=== PATIENT | female | born 2000 | race Hispanic/Latino ===

== ENCOUNTER 2021-01-20 07:52 | Inpatient (IN) | payer OTHER ==
[2021-01-20] MEDS ORDERED: Ringers Lactate 1,000 ML IV PRN (07:55)
[2021-01-20] MEDS ORDERED: CARBOPROST TROME 250 MCG/ML IM PRN (07:55)
[2021-01-20] MEDS ORDERED: PROMETHAZINE INJ 25 MG/ML AMP IM PRN (07:55)
[2021-01-20] MEDS ORDERED: BUTORPHANOL 1 MG/ML INJ IV PRN (07:55)
[2021-01-20] MEDS ORDERED: METHYLERGONOVINE 0.2MG/ML AMP IM PRN (07:55)
--- OUTSIDE RECORDS SUMMARY | 2021-01-20 07:57 | XMS REPORT | Continuity of Care Document ---
:2000 Author Organization [facility] t Address [address] [place] [address] Care Team Providers Name Role Phone PCP, PATIENT DOES NOT HAVE A Primary Care Physician Unavailnestor Richardson Attending Clinician Unavailable MORGAN Attending Clinician Unavailable Morgan GOMEZ Attending Clinician Fabiola RANDOLPH Attending Clinician Unavailable Gino Brown DO Attending Clinician Fabiola Randolph MD Attending Clinician 2, Lab Attending Clinician Unavailable Doctor Unassigned, Name Attending Clinician Unavailable MORGAN Admitting Clinician Unavailable Physician, Primary or Family Admitting Clinician Unavailсветлана Mora MD Admitting Clinician Payers Payer Name Policy Type Policy Number Effective Date Expiration Date S jennifer [employer] [id number] 2018 OUT OF NETWORK 00:00:00 [facility] [id number] 2020 CHOICE MEDICAID 00:00:00 Problems Condition Condition Condition Status Onset Resolution Last Treating Co mments Source Name Details Category Date Date Treatment Clinician Date 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 1-24 ity of stones stones 00:00: [address] Branch Obesity Obesity Disease Active Univers (BMI (BMI 7-15 ity of 30-39.9) 30-39.9) 00:00: [address] Morbid Morbid Disease Active 2020- Univers obesity obesity 6-09 [place] of with [place] mass index 00 [place] dical of of Branch 40.0-49.9 40.0-49.9 Morbid Morbid Disease Active 2020- Univers obesity obesity 6-09 [place] of with body [place] mass index mass index 00 Me dical of of Branch 40.0-49.9 40.0-49.9 Allergies, Adverse Reactions, Alerts Allergy Allergy Status Severity Reaction(s) Onset Inactive Treating Comm ents Source Name Type Date Date Clinician No Known DA Active U [facility] Allergie 4-29 Clear s 00:00: [place] 00 [facility] No Known DA Active U [facility] Allergie 4-29 Clear s 00:00: [place] 00 [facility] NO KNOWN Drug Active Univers ALLERGIE Class ity of S [facility] Social History Social Habit Start Date Stop Date Quantity Comments Source ASSERTION 2020-05-07 [facility] 00:00:00 [facility] Exposure to Not sure [facility] SARS-CoV-2 [facility] (event) [place] Alcohol intake 2020-12-29 2020-12-29 Ex-drinker [facility] 00:00:00 00:00:00 (finding) [facility] Tobacco use and 2019-07-15 2019-07-15 Never used Universit y of exposure 00:00:00 00:00:00 [facility] Sex Assigned At [birth year] Universit y of 00:00:00 00:00:00 [facility] Smoking Status Start Date Stop Date Source Never smoker [facility] Medications Ordered Filled Start Stop Current Ordering Indication Dosage Frequency Signature Comments Components Source Medication Medication Date Date Medication? Clinician (SIG) Name Name piperacilli 2020-02 Yes 3.375g 3.375 g, Univers n-tazobacta 24 IV ity of m (ZOSYN) 16:[place] 3.[place] 00 Q6H ABX, Medic al NaCl 0.9% First dose Bran ch (NS) 100 mL on Sun MINI-BAG 12/29/20 at 1000, Until Discontinu ed, Administer over 30 Minutes, 100 mL
Reas on for Anti-Infec tive: Empiric Therapy for Suspected Infection morpHINE 2020-02 Yes 4mg 4 mg, Slow Uni vers injection 4 1-24 IV Push, ity of mg 14:58: Q4HPRN, [place] 59 Starting Medical on Sun Branch 12/29/20 at 0858, Until Discontinu ed, Routine, Pain (scale 4-6) NaCl 0.9% 2020-02 Yes 1000mL at 200 Univ ers (NS) IV 1-24 mL/hr, IV ity of infusion 14:00: [place]fusion, [place] 1,000 mL 00 CONTINUOUS Medic al , Starting Branch on Sun12/29/20 at 0800, Until Discontinu ed, Routine maalox:diph 2020-02 Yes 15mL 15 mL, Univ ers enhydrAMINE 1-24 Oral, ity of :lidocaine 13:59: QDAILYPRN, [place] 2 % viscous 53 Starting Medi mihai 1:1:1 on Sun Branch (FIRST-MOUT 12/29/20 [facility]) at 0759, oral Until suspension Discontinu 15 mL ed, Routine, nausea metoclopram 2020-02 Yes 5mg 5 mg, Slow Univers klever HCl 1-24 IV Push, ity of (REGLAN) 13:47: Q6HPRN, [place] injection 5 03 Starting Medi mihai mg on Sun Branch 12/29/20 at 0747, Until Discontinu ed, Routine, Nausea and Vomiting (N/V) FENTanyl PF 2020-02 Yes 100ug 100 mcg, U nivers (SUBLIMAZE -24 Slow IV ity of (PF)) 13:46: Push, [place] injection 04 Q1HPRN, 5 Medic al 100 mcg doses, Branch Starting on Sun12/29/20 at 0746, Until Discontinu ed, Routine, Pain (scale 7-10) FENTanyl PF 2020-02- No 100ug 100 mcg, Univers (SUBLIMAZE -24 -24 Slow IV ity o f (PF)) 12:08: 12:20 Push, [place] injection 00 :00 ONCE, 1 Medical 100 mcg dose, On Branch Sun12/29/20 at 0615, Routine ondansetron 2020-02- No 8mg 8 mg, Slow Univers (ZOFRAN 24 24 IV Push, ity of (PF)) 11:40: 11:50 ONCE, 1 [place] injection 8 00 :00 dose, On Medi mihai mg Sun12/29/20 at 0545, Routine acetaminoph 2020-02 Yes 1000mg 1,000 mg, Univers en -24 Oral, ity of (TYLENOL) 11:00: Q6HPRN, [place] tablet 00 Starting Medical 1,000 mg on Sun12/29/20 at 0500, Until Discontinu ed, Routine, Pain (scale 4-6) etonogestre 2020-02- No 68mg 68 mg by U nivers l 68 mg 02-28 Subdermal ity of implant 07:40: 00:00 route once [place] 25 :00 now. Medical Branch etonogestre Yes 68mg 68 mg by Un jazlyn l 68 mg 7-15 Subdermal [place]y of [place] 18:22: route [place] now. Medical Branch etonogestre Yes 68mg 68 mg by Un jazlyn l 68 mg 7-15 Subdermal ity of [place] 18:22: route once [place] 54 now. Medical Branch etonogestre Yes 68mg 68 mg by Un jazlyn l 68 mg 7-15 Subdermal ity of [place] 18:22: route once [place] 54 now. Medical Branch etonogestre Yes 68mg 68 mg by Un jazlyn l 68 mg 7-15 Subdermal ity of [place] 18:22: route once [place] 54 now. Medical Branch etonogestre Yes 68mg 68 mg by Un jazlyn l 68 mg 7-15 Subdermal ity of [place] 18:22: route once [place] 54 now. Medical Branch etonogestre Yes 68mg 68 mg by Un jazlyn l 68 mg 7-15 Subdermal ity of [place] 18:22: route once [place] 54 now. Medical Branch norgestimat Yes [id number] 1{tbl} Take 1 Univers e-ethinyl 7-15 tablet by ity o f estradiol 00:00: mouth [place] (SPRINTEC) 00 daily. Medical 0.25-35 Branch mg-mcg per tablet ibuprofen 2019-0 Yes [id number] 800mg Take 1 U nivers 800 mg 7-15 tablet by ity of tablet 00:00: mouth [place] 00 every 8 Medical (eight) Branch hours as needed for Pain (scale 4-6). norgestimat 2020-0 Yes [id number] 1{tbl} Take 1 Univers e-ethinyl 7-15 tablet by ity o f estradiol 00:00: mouth [place] (SPRINTEC) 00 daily. Medical 0.25-35 Branch mg-mcg per tablet ibuprofen 2019-0 Yes [id number] 800mg Take 1 U nivers 800 mg 7-15 tablet by ity of tablet 00:00: mouth [place] 00 every 8 Medical (eight) Branch hours as needed for Pain (scale 4-6). norgestimat 2019-0 Yes [id number] 1{tbl} Take 1 Univers e-ethinyl 7-15 tablet by ity o f estradiol 00:00: mouth [place] (SPRINTEC) 00 daily. Medical 0.25-35 Branch mg-mcg per tablet ibuprofen 2019-0 Yes [id number] 800mg Take 1 U nivers 800 mg 7-15 tablet by ity of tablet 00:00: mouth [place] 00 every 8 Medical (eight) Branch hours as needed for Pain (scale 4-6). norgestimat 2019-0 Yes [id number] 1{tbl} Take 1 Univers e-ethinyl 7-15 tablet by ity o f estradiol 00:00: mouth [place] (SPRINTEC) 00 daily. Medical 0.25-35 Branch mg-mcg per tablet ibuprofen 2019-0 Yes [id number] 800mg Take 1 U nivers 800 mg 7-15 tablet by ity of tablet 00:00: mouth [place] 00 every 8 Medical (eight) Branch hours as needed for Pain (scale 4-6). norgestimat 2020-0 Yes [id number] 1{tbl} Take 1 Univers e-ethinyl 7-15 tablet by ity o f estradiol 00:00: mouth [place] (SPRINTEC) 00 daily. Medical 0.25-35 Branch mg-mcg per tablet ibuprofen 2019-0 Yes [id number] 800mg Take 1 U nivers 800 mg 7-15 tablet by ity of tablet 00:00: mouth [place] 00 every 8 Medical (eight) Branch hours as needed for Pain (scale 4-6). norgestimat Yes [id number] 1{tbl} Take 1 Univers e-ethinyl 7-15 tablet by ity o f estradiol 00:00: mouth [place] (SPRINTEC) 00 daily. Medical 0.25-35 Branch mg-mcg per tablet ibuprofen Yes [id number] 800mg Take 1 U nivers 800 mg 7-15 tablet by ity of tablet 00:00: mouth [place] 00 every 8 Medical (eight) Branch hours as needed for Pain (scale 4-6). norgestimat 2020- No [id number] 1{tbl} Take 1 Univers e-ethinyl 7-15 11-24 tablet by ity of estradiol 00:00: 00:00 mouth [place] (SPRINTEC) 00 :00 daily. Medical 0.25-35 Branch mg-mcg per tablet ibuprofen No [id number] 800mg Take 1 Univers 800 mg 7-15 11-24 tablet by ity of tablet 00:00: 00:00 mouth [place] 00 :00 every 8 Medical (eight) Branch hours as needed for Pain (scale 4-6). etonogestre 2019- No 68mg Unive rs l 07-21 ity of (NEXPLANON) 20:45: 19:40 [place] implant 68 00 :00 Medical mg Branch etonogestre 2019- No 68mg 68 mg, Uni vers l 07-21 Subdermal, ity of (NEXPLANON) 20:45: 19:40 ONCE NOW, [place] implant 68 00 :00 1 dose, Medica l mg Tue Branch 07/22/19 at 1545, Routine
Use approved by: PATIENT ACCESS MANAGER etonogestre 2019- No 68mg Unive rs l 07-21 ity of (NEXPLANON) 20:45: 19:40 [place] implant 68 00 :00 Medical mg Branch etonogestre 2019- No 68mg 68 mg, Uni vers l 07-21 Subdermal, ity of (NEXPLANON) 20:45: 19:40 ONCE NOW, [place] implant 68 00 :00 1 dose, Medica l mg Tue Branch 07/22/19 at 1545, Routine
Use approved by: PATIENT ACCESS MANAGER No known No Univers medications ity of [place] [facility] Vital Signs Vital Name Observation Time Observation Value Comments Source Respiratory rate 2020-12-30 16:30:00 18 /min Univ ersity of [facility] [place] [facility] Heart rate 2020-12-30 16:15:00 71 /min Universi ty of [facility] [place] [facility] Oxygen saturation in 2020-12-30 16:15:00 98 /min University Arterial blood by [facility] Pulse oximetry Branch Systolic blood 2020-12-30 13:13:00 96 mm[Hg] Univer sity of pressure [facility] [place] [facility] Diastolic blood 2020-12-30 13:13:00 69 mm[Hg] Unive rsity of [facility] Body temperature 2020-12-30 13:13:00 36.78 Wanda Univ ersity of [facility] [place] [facility] Body weight 2020-12-29 10:32:00 98.521 kg 217.2lb Universi ty of [facility] [place] [facility] BMI 2020-12-29 10:32:00 38.48 kg/m2 Universi ty of [facility] [place] [facility] Body height 2020-12-29 10:11:00 160 cm Universi ty of [facility] [place] [facility] Systolic blood 2019-08-20 19:18:00 119 mm[Hg] Univer sity of pressure [facility] [place] [facility] Diastolic blood 2019-08-20 19:18:00 79 mm[Hg] Unive rsity of [facility] Heart rate 2019-08-20 19:18:00 102 /min Universi ty of [facility] [place] [facility] Body temperature 2019-08-20 18:21:00 36.94 Wanda Univ ersity of [facility] [place] [facility] Respiratory rate 2019-08-20 18:21:00 18 /min Univ ersity of [facility] [place] [facility] Body height 2019-08-20 18:21:00 160 cm Universi ty of [facility] [place] [facility] Body weight 2019-08-20 18:21:00 98.612 kg Universi ty of [facility] [place] [facility] BMI 2019-08-20 18:21:00 38.51 kg/m2 Universi ty of [facility] [place] [facility] Systolic blood 2019-07-22 18:35:00 120 mm[Hg] Univer sity of pressure [facility] [place] [facility] Diastolic blood 2019-07-22 18:35:00 77 mm[Hg] Unive rsity of pressure [facility] [place] [facility] Heart rate 2019-07-22 18:35:00 84 /min Universi ty of [place] [facility] Body temperature 2019-07-22 18:35:00 36.94 Wanda [facility] Respiratory rate 2019-07-22 18:35:00 18 /min General acute hospital Body height 2019-07-22 18:35:00 160 cm Universi ty [facility] [place] [facility] Body weight 2019-07-22 18:35:00 112.764 kg Universi ty [facility] [place] [facility] BMI 2019-07-22 18:35:00 44.04 kg/m2 Universi ty [facility] [place] [facility] Systolic blood 2019-07-22 18:35:00 120 mm[Hg] [facility] sity of [facility] Diastolic blood 2019-07-22 18:35:00 77 mm[Hg] [facility] Heart rate 2019-07-22 18:35:00 84 /min Universi ty [facility] [place] [facility] Body temperature 2019-07-22 18:35:00 36.94 Wanda [facility] acute hospital Respiratory rate 2019-07-22 18:35:00 18 /min General acute hospital Body height 2019-07-22 18:35:00 160 cm Universi ty [facility] [place] [facility] Body weight 2019-07-22 18:35:00 112.764 kg Universi [facility] BMI 2019-07-22 18:35:00 44.04 kg/m2 [facility] Procedures Procedure Date / Time Performing Clinician Source Performed HEPATIC FUNCTION PANEL 2020-12-30 10:42:00 Amber Gordillo [facility] ([id number]) (ALB,T.PRO,BILI [facility] T,BU/BC,ALT,AST,ALK PHOS) US GALL BLADDER 2020-12-29 14:22:00 Fish, [facility] COVID-19 (ID NOW RAPID 2020-12-29 12:21:00 Fish [facility] TESTING) [facility] AMYLASE 2020-12-29 12:14:00 Fish [facility] LIPASE 2020-12-29 12:14:00 Fish, [facility] COMP. METABOLIC PANEL 2020-12-29 12:14:00 [facility] ([id number]) [facility] CBC WITH DIFF 2020-12-29 12:14:00 Morgan Eber [place] o f [facility] [place] [facility] NOTICE OF PRIVACY 2020-12-29 10:04:59 Doctor Unassgeorgiana, [facility] PRACTICES [place] [facility] CONSENT/REFUSAL FOR 2020-12-29 10:04:27 Doctor Unassgeorgiana, [facility] DIAGNOSIS AND TREATMENT [facility] POCT TEST 2019-08-20 19:09:00 Louise Randolph [facility] CONSENT FOR ORAL 2019-08-20 05:01:00 Doctor Unajenniferigned, [facility] CONTRACEPTIVES [place] [facility] [id number] 2019-07-29 00:00:00 KOBI [facility] Encounters Start End Encounter Admission Attending Care Care Encounter Source Date/Time Date/Time Type Type Clinicians Facility Department ID 2020-12-30 Outpatient P [facility] OVIDIO [id number] [facility]-07-29 Inpatient HIEN Richardson DAYS [id number] [facility] 07:30:[id number] [facility] 2019-06-09 Inpatient MEREDITH Richardson DAYS [id number] [facility] 11:00:[id number] [facility] 2020-12-29 2020-12-30 Outpatient P EBER MORA [facility] OVIDIO [id number] Univers 04:21:00 17:00:[facility] 2020-12-29 2020-12-30 Hospital Enrrique Moran [facility] [id number] Univers 04:21:00 17:00:00 Encounter [place] [id number] [id number] [facility] [id number] [facility] 083 Branch 2020-09-11 2020-09-11 Outpatient [facility] [id number] Univers 16:40:00 16:40:00 [id number] [facility] 2020-07-23 2020-07-23 Outpatient R MANISH [facility] [id number] Univers 13:00:00 13:00:00 LOUISE [id number] [facility] 2020-07-23 2020-07-23 Outpatient R ADUM, [facility] [id number] Univers 13:00:00 13:00:00 LOUISE [facility] 2020-04-27 2020-04-27 Patient [facility] [id number] Univers 00:00:00 00:00:00 Outreach James PRIMARY [id number] i ty of [facility] 4[place]2.[place].2.686 [place] [id number] [address] 2019-11-21 2019-11-21 Outpatient R ADUM, [facility] [id number] Univers 09:00:00 09:00:00 LOUISE [facility] 2019-11-21 2019-11-21 Outpatient R AD, [facility] [id number] Univers 09:00:00 09:00:00 LOUISE [id number] [facility] 2019-09-05 2019-09-05 [facility] [id number] Univers 00:00:00 00:00:00 Louise Barajas [id number] ity of [place]2.[place] Profess[place] [phone] Fl dical [facility] [address] [facility] 2019-08-20 2019-08-20 Therapy Manager 2, Adc Lab [facility] [id number] Univers 14:31:24 14:46:24 Visit Louise Randolph [id number] ity of [place] 4[place].2.[place] [phone] Fl dical nal 353 [facility] 2019-08-20 2019-08-20 Office Adum, [facility] [id number] Univers 13:06:07 14:20:18 Visit Louise Barajas [id number] ity of [place] 4[place].2.[place] [phone] Fl dical [facility] 134 [facility] 2019-08-20 2019-08-20 Outpatient R ADUM, [facility] [id number] Univers 13:00:00 13:00:00 LOUISE [id number] ity [facility] [place] [facility] 2019-08-20 2019-08-20 Outpatient R ADUM, [facility] [id number] Univers 13:00:00 13:00:00 LOUISE ity [facility] [place] [facility] 2019-08-20 2019-08-20 Orders Doctor JUAN DANIEL [id number] Univers 00:00:00 00:00:00 Only Unassigned, HUSAM [id number] ity of [facility] 4.2.7.2.686 [place] [phone] [address] 2019-07-24 2019-07-24 Outpatient MEREDITH RichardsonCL LABO [id number] [facility] 13:53:00 13:53:00 Antelmo [id number] [facility] 2019-07-22 2019-07-22 Office Adum, [facility] [id number] Univers 13:05:27 14:26:35 Visit Louise Barajas [id number] ity of [place] 4[place].2.[place] [phone] Fl dical [address] 2019-07-22 2019-07-22 Office Adum, [facility] [id number] 13:05:27 14:26:35 Visit Louise Barajas [id number] [place] 4.2.7.2.686 Professio [phone] [address] 2019-07-22 2019-07-22 Outpatient R ADUM, [facility] [id number] Univers 13:00:00 13:00:00 LOUISE [id number] ity [facility] [place] [facility] 2019-07-22 2019-07-22 Outpatient R ADUM, [facility] [id number] Univers 13:00:00 13:00:00 LOUISE ity [facility] [place] [facility] 2019-07-18 2019-07-18 Therapy Manager 2, Adc Lab [facility] [id number] Univers 10:38:49 10:53:49 Visit Louise Randolph [id number] ity of [place] 4.2.7.2.686 Bridget Sherman [phone] Fl dical nal [address] 2019-07-18 2019-07-18 Outpatient R [facility] [id number] Univers 10:45:00 10:45:00 [id number] [facility] 2019-07-18 2019-07-18 Outpatient R [facility] [id number] Univers 10:45:00 10:45:00 [facility] 2019-07-15 2019-07-15 Outpatient R MANISH, [facility] [id number] Univers 15:00:00 15:00:00 [facility] 2019-06-04 2019-06-04 Outpatient ADIN Richardson LABO [id number] [facility] 17:57:00 17:57:00 Antelmo [id number] [facility] Results Test Description Test Time Test Comments Results Result Comments Source HEPATIC FUNCTION PANEL ([id number]) (ALB,T.PRO,BILI 2020-12-30 13 :47:55 T,BU/BC,ALT,AST,ALK PHOS) Test Item Value Reference Range Interpretation Comme nts TOTAL BILI (test code = 7009485901) 0.9 mg/dL 0.1-1.1 BILI UNCON (test code = 6256707909) 0.5 mg/dL 0.1-1.1 BILI CONJ (test code = 5567805460) 0.0 mg/dL 0.0-0.3 T PROTEIN (test code = 8427886936) 5.6 g/dL 6.3-8.2 L ALBUMIN (test code = 8608301543) 2.8 g/dL 3.5-5.0 L ALK PHOS (test code = 2831491553) 163 U/L 34-122 H ALTv (test code = 1742-6) 42 U/L 5-35 H AST(SGOT) (test code = 7007410539) 55 U/L 13-40 H Lab Interpretation (test code = 73294-7) [facility] ([id number])2020-12-29 13:46:21 Test Item Value Reference Range Interpretation Comments NA (test code = 135 mmol/L 135-145 0947358030) K (test code = 4.3 mmol/L 3.5-5.0 3896609436) CL (test code = 105 mmol/L 98-108 1116442774) CO2 TOTAL (test code = 24 mmol/L 23-31 6165186438) AGAP (test code = 2-16 2496342221) BUN (test code = 9 mg/dL 7-23 2827718147) GLUCOSE (test code = 98 mg/dL 70-110 3963606903) CREATININE (test code = 0.56 mg/dL 0.50-1.04 6622227134) TOTAL BILI (test code = 0.2 mg/dL 0.1-1.5 3616126766) CALCIUM (test code = 9.6 mg/dL 8.6-10.6 2711155576) T PROTEIN (test code = 6.4 g/dL 6.3-8.2 5443670987) ALBUMIN (test code = 3.4 g/dL 3.5-5.0 L 7385945705) ALK PHOS (test code = 136 U/L 34-122 H 4902983971) ALTv (test code = 17 U/L 5-35 1742-6) AST(SGOT) (test code = 26 U/L 13-40 7997860289) eGFR (test code = mL/min/1.73m2 1845950744) SATYA (test code = SATYA) Association of Glomerular Filtration Rate (GFR) and Staging of Kidney Disease* + --+ --+ ------+| GFR (mL/min/1.73 m2) ?| With Kidney Damage ?| ?Without Kidney Damage+ --------+ --------+ +| ?>90 ?| ?Stage one ?| ? Normal ?+ ---+ ---+ -------+| ?60-89 ?| ?Stage two ?| ? Decreased GFR ? + --+ --+ ------+| ?30-59 ?| ?Stage three ?| ? Stage three ? + --+ --+ ------+| ?15-29 ?| ?Stage four ? | ? Stage four ?+ ---+ ---+ -------+| ?<15 (or dialysis) ? ?| ?Stage five ? | ? Stage five ?+ ---+ ---+ -------+ *Each stage assumes the associated GFR level has been in effect for at least three months. ?Stages 1 to 5, with or without kidney disease, indicate chronic kidney disease. Notes: Determination of stages one and two (with eGFR >59mL/min/1.73 m2) requires estimation of kidney damage for at least three months as defined by structural or functional abnormalities of the kidney, manifested by either:Pathological abnormalities or Markers of kidney damage (including abnormalities in the composition of the blood or urine or abnormalities in imaging tests). Lab Interpretation Abnormal (test code = 46846-9) [facility] 13:46:21 Test Item Value Reference Range Interpretation Comments LIPASE (test code = 7311734054) 63 U/L 0-220 Lab Interpretation (test code = Normal 88423-5) [facility] 13:45:20 Test Item Value Reference Range Interpretation Comments JOSHUA (test code = 6259339245) 72 U/L 35-110 Lab Interpretation (test code = Normal 86344-1) [facility] WITH [id number] 12:29:37 Test Item Value Reference Range Interpretation Comments WBC (test code = See_Comment H [Automated 6690-2) message] The system which generated this result transmit pamela reference range : 4.30 - 11.10 10*3/?L. The reference range was not used to interpret this result as normal/abnormal . RBC (test code = See_Comment L [Automated 789-8) message] The system which generated this result transmit pamela reference range : 3.93 - 5.25 10*6/?L. The reference range was not used to interpret this result as normal/abnormal . HGB (test code = 11.3 g/dL 11.6-15.0 L 718-7) HCT (test code = 34.5 % 35.7-45.2 L 4544-3) MCV (test code = 88.5 fL 80.6-95.5 787-2) MCH (test code = 29.0 pg 25.9-32.8 785-6) MCHC (test code = 32.8 g/dL 31.6-35.1 786-4) RDW-SD (test code = 41.7 fL 39.0-49.9 86214-9) RDW-CV (test code = 13.0 % 12.0-15.5 788-0) PLT (test code = See_Comment [Automated 777-3) message] The system which generated this result transmit pamela reference range : 166 - 358 10*3/ ?L. The reference range was not u sed to interpret th is result as normal/abnormal . MPV (test code = 10.6 fL 9.5-12.9 09410-7) NRBC/100 WBC (test See_Comment [Automat ed code = 6107838005) message] The system which generated this result transmit pamela reference range : 0.0 - 10.0 /100 WBCs. The reference range was not used to interpret this result as normal/abnormal . NRBC x10^3 (test code <0.01 See_Comment [Auto mated = 8361334755) message] The system which generated this result transmit pamela reference range : 10*3/?L. The reference range was not used to interpret this result as normal/abnormal . GRAN MAT (NEUT) % 86.9 % (test code = 770-8) IMM GRAN % (test code 0.90 % = 9359798623) LYMPH % (test code = 7.4 % 736-9) MONO % (test code = 4.3 % 5905-5) EOS % (test code = 0.1 % 713-8) BASO % (test code = 0.4 % 706-2) GRAN MAT x10^3(ANC) 13.16 10*3/uL 1.88-7.09 H (test code = 0542152702) IMM GRAN x10^3 (test 0.14 10*3/uL 0.00-0.06 H code = 4316165214) LYMPH x10^3 (test code 1.12 10*3/uL 1.32-3.29 L = 731-0) MONO x10^3 (test code 0.65 10*3/uL 0.33-0.92 = 742-7) EOS x10^3 (test code = <0.03 0.03-0.39 L 711-2) BASO x10^3 (test code 0.06 10*3/uL 0.01-0.07 = 704-7) Lab Interpretation Abnormal (test code = 00607-7) [facility] [id number] 19:09:00 Test Item Value Reference Range Interpretation Comments POCT PREG (test code = 1605) Negative On board controls acceptable with C Yes Line (test code = 3574) POCT PREG LOT # (test code = 3575) POCT PREG TEST DATE (test code = 3576) [facility] [id number] 19:09:00 Test Item Value Reference Range Interpretation Comments POCT PREG (test code = 1605) Negative On board controls acceptable with C Yes Line (test code = 3574) POCT PREG LOT # (test code = 3575) POCT PREG TEST DATE (test code = 357) [facility] W/AUTO [id number] 05:19:00 Test Item Value Reference Range Interpretation Comments WHITE BLOOD CELL (test code = 14.9 K/mm3 4.5-12.5 H WBC) RED BLOOD CELL (test code = 4.13 mill/mm3 3.7-5.2 N RBC) HEMOGLOBIN (test code = HGB) 11.0 gram/dL 11.5-15.5 L HEMATOCRIT (test code = HCT) 34.3 % 36.0-46.0 L MEAN CELL VOLUME (test code = 83.1 fL 80-98 N MCV) MEAN CELL HGB (test code = MCH) 26.6 picogram 27.0-33.0 L MEAN CELL HGB CONCETRATION 32.1 gram/dL 33.0-36.0 L (test code = MCHC) RED CELL DISTRIBUTION WIDTH 15.4 % 11.6-16.2 N (test code = RDW) RED CELL DISTRIBUTION WIDTH SD 46.7 fL 37.0-51.0 N (test code = RDW-SD) PLATELET COUNT (test code = 459 K/mm3 150-450 H PLT) MEAN PLATELET VOLUME (test code 10.3 fL 6.7-11.0 N = MPV) NEUTROPHIL % (test code = NT%) 72.1 % 39.0-69.0 H IMMATURE GRANULOCYTE % (test 0.5 % 0.0-5.0 N code = IG%) LYMPHOCYTE % (test code = LY%) 19.9 % 25.0-55.0 L MONOCYTE % (test code = MO%) 6.6 % 0.0-10.0 N EOSINOPHIL % (test code = EO%) 0.4 % 0.0-5.0 N BASOPHIL % (test code = BA%) 0.5 % 0.0-1.0 N NUCLEATED RBC % (test code = 0.0 % 0-0 N NRBC%) NEUTROPHIL # (test code = NT#) 10.73 K/mm3 1.8-7.7 H IMMATURE GRANULOCYTE # (test 0.07 x10 3/uL 0-0.03 H code = IG#) LYMPHOCYTE # (test code = LY#) 2.96 K/mm3 1.0-5.0 N MONOCYTE # (test code = MO#) 0.98 K/mm3 0-0.8 H EOSINOPHIL # (test code = EO#) 0.06 K/mm3 0.0-0.5 N BASOPHIL # (test code = BA#) 0.07 K/mm3 0.0-0.2 N NUCLEATED RBC # (test code = 0.00 K/mm3 0.0-0.1 N NRBC#) URINALYSIS [id number] 20:30:00 Test Item Value Reference Range Interpretation Comments UA COLOR (test code = COLORLESS YELLOW A COLU) UA APPEARANCE (test code CLEAR CLEAR = APPU) UA GLUCOSE DIPSTICK (test NEGATIVE mg/dL NEGATIVE code = DGLUU) UA BILIRUBIN DIPSTICK NEGATIVE mg/dL NEGATIVE (test code = BILU) UA KETONE DIPSTICK (test 40 (2+) mg/dL NEGATIVE A code = KETU) UA SPECIFIC GRAVITY (test 1.007 1.001-1.035 code = SGU) UA BLOOD DIPSTICK (test Negative mg/dL NEGATIVE code = DEMETRIUS) UA PH DIPSTICK (test code 6.5 5.0-8.0 = ZENON) UA PROTEIN DIPSTICK (test NEGATIVE mg/dL NEGATIVE code = PROU) UA UROBILINIOGEN DIPSTICK Normal mg/dL NEGATIVE (test code = URO) UA NITRITE DIPSTICK (test NEGATIVE NEGATIVE code = CAITLIN) UA LEUKOCYTE ESTERASE W 75 Dee Dee/uL (1+) NEGATIVE A REFLEX (test code = Dee Dee/uL LEUUR) UA WBC (test code = WBCU) 0-5 per HPF 0-5 UA RBC (test code = RBCU) 0-2 #/HPF 0-5 UA EPITHELIAL CELLS (test FEW per HPF FEW code = EPIU) UA BACTERIA (test code = NONE SEEN #/HPF NONE BACU) Urine Source? Clean [id number] 16:26:00 RUN DATE: 07/30/19 [facility] PAGE 1 RUN TIME: 1626 Specimen Inquiry RUN USER: INTERFACE PATIENT: GEM LAI LOC: AFSANEH U #: [id number] AGE/SX: 18/F ROOM: [facility] RE07/29/19REG DR: Antelmo Richardson MD : 99 BED: A DIS: STATUS: ADM IN TLOC: SPEC #: [id number] RECD: 07/29/19-1216 STATUS: FARHEEN WYMAN #: [id number] ESTHER: 07/29/19- SUBM DR: Antelmo Richardson MD ENTERED: 07/29/19-1216 SP TYPE: STOMACH OTHR DR: No Primary or Family Physician Dylan Tucker MDORDERED: GROSS COPIES TO: No Primary or Family Physician Antelmo Richardson MD [address] [place] [address] Dylan Tucker MD [address] [address] [place], [place] [address] PROCEDURES: GROSS (07/30/19-113) TISSUES: STOMACH, NOS - PORTION OF STOMACH CLINICAL HISTORY COLLECTION DATE: 07/29/19 [facility] FINAL DIAGNOSIS Portion of stomach, laparoscopic sleeve gastrectomy: PORTION OF STOMACH, NO PATHOLOGIC ALTERATION DMW/sm D 26008 MACROSCOPIC The specimen is received in formalin labeled with the patient's name, "portion of stomach" and consists of a sleeve gastrectomy specimen measuring 17.5 by up to 4.5 cm with a wall thickness up to 0.5 cm. The mucosal edge is stapled closed.A minimal amount of unremarkable yellow fatty tissue is CONTINUED ON NEXT PAGE RUN DATE: 07/30/19 [facility] PAGE 2 RUN TIME: 1626 Specimen Inquiry RUN USER: INTERFACE SPEC #: [id number] PATIENT: GEM LAI #[id number] (Continued) MACROSCOPIC (Continued) attached to the opposite surface. The mucosal surface is dark pink with unremarkable folds. No areas of ulceration, nodules or masses are seen. [employer] tissue is submitted in a single cassette. GROSS PERFORMED AT [facility] [address] [place] [address] [phone] MICROSCOPIC All of the stains, including any controls performed, stain appropriately. MICROSCOPIC PERFORMED AT [facility] [address] [place] [address] [phone])[phone] PERFORMING SITE Diagnosis performed at: [facility], [place] [address] [place] [address] Signed SIGNATURE ON FILE Tayler Brooks MD 07/30/19 1626 END OF REPORT BASIC METABOLIC [id number] 07:04:00 Test Item Value Reference Range Interpretation Comments SODIUM (test code = 138 mmol/L 136-145 N NA) POTASSIUM (test code 4.3 mmol/L 3.5-5.1 N = K) CHLORIDE (test code = 106.0 mmol/L 98-107 N CL) CARBON DIOXIDE (test 21.0 mmol/L 21-32 N code = CO2) ANION GAP (test code 15.3 10-20 N = GAP) GLUCOSE (test code = 80 mg/dL 74-106 N GLU) BLOOD UREA NITROGEN 5 mg/dL 7-18 L (test code = BUN) GLOMERULAR FILTRATION > 60 mL/min >=60 Estima pamela GFR by RATE (test code = using Fabio fied MDRD GFR) formula.Chronic kidney disease is defined as [facility] kidney damageor GFR <60 mL/min/1.73 m2 for >3 months. CREATININE (test code 0.60 mg/dL 0.55-1.02 N Note change in = CREAT) reference range due to change in reagent. BUN/CREATININE RATIO 8.1 10-20 L (test code = BUN/CREA) CALCIUM (test code = 9.0 mg/dL 8.5-10.1 N CA) BASIC METABOLIC [id number] 06:56:00 Test Item Value Reference Range Interpretation Comments SODIUM (test code = NA) 138 mmol/L 136-145 N POTASSIUM (test code = K) 4.3 mmol/L 3.5-5.1 N CHLORIDE (test code = CL) 106.0 mmol/L 98-107 N CARBON DIOXIDE (test code = CO2) mmol/L 21-32 ANION GAP (test code = GAP) 10-20 GLUCOSE (test code = GLU) mg/dL 74-106 BLOOD UREA NITROGEN (test code = mg/dL 7-18 BUN) GLOMERULAR FILTRATION RATE (test mL/min >=60 code = GFR) CREATININE (test code = CREAT) mg/dL 0.55-1.02 BUN/CREATININE RATIO (test code 10-20 = BUN/CREA) CALCIUM (test code = CA) mg/dL 8.5-10.1 CBC W/AUTO [id number] 05:46:00 Test Item Value Reference Range Interpretation Comments WHITE BLOOD CELL (test code = 19.3 K/mm3 4.5-12.5 H WBC) RED BLOOD CELL (test code = 4.48 mill/mm3 3.7-5.2 N RBC) HEMOGLOBIN (test code = HGB) 11.8 gram/dL 11.5-15.5 N HEMATOCRIT (test code = HCT) 37.0 % 36.0-46.0 N MEAN CELL VOLUME (test code = 82.6 fL 80-98 N MCV) MEAN CELL HGB (test code = MCH) 26.3 picogram 27.0-33.0 L MEAN CELL HGB CONCETRATION 31.9 gram/dL 33.0-36.0 L (test code = MCHC) RED CELL DISTRIBUTION WIDTH 15.0 % 11.6-16.2 N (test code = RDW) RED CELL DISTRIBUTION WIDTH SD 45.2 fL 37.0-51.0 N (test code = RDW-SD) PLATELET COUNT (test code = 474 K/mm3 150-450 H PLT) MEAN PLATELET VOLUME (test code 10.3 fL 6.7-11.0 N = MPV) NEUTROPHIL % (test code = NT%) 84.4 % 39.0-69.0 H IMMATURE GRANULOCYTE % (test 0.4 % 0.0-5.0 N code = IG%) LYMPHOCYTE % (test code = LY%) 9.3 % 25.0-55.0 L MONOCYTE % (test code = MO%) 5.6 % 0.0-10.0 N EOSINOPHIL % (test code = EO%) 0.1 % 0.0-5.0 N BASOPHIL % (test code = BA%) 0.2 % 0.0-1.0 N NUCLEATED RBC % (test code = 0.0 % 0-0 N NRBC%) NEUTROPHIL # (test code = NT#) 16.27 K/mm3 1.8-7.7 H IMMATURE GRANULOCYTE # (test 0.08 x10 3/uL 0-0.03 H code = IG#) LYMPHOCYTE # (test code = LY#) 1.79 K/mm3 1.0-5.0 N MONOCYTE # (test code = MO#) 1.08 K/mm3 0-0.8 H EOSINOPHIL # (test code = EO#) 0.01 K/mm3 0.0-0.5 N BASOPHIL # (test code = BA#) 0.03 K/mm3 0.0-0.2 N NUCLEATED RBC # (test code = 0.00 K/mm3 0.0-0.1 N NRBC#) MANUAL DIFF REQUIRED (test code NO = MDIFF) [id number] 06:31:00 Test Item Value Reference Range Interpretation Comments GLUBED (test code = 92 mg/dL 74-106 N Performe d by certified 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) 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 [facility] Novel Coronavirus 2019 [id number] 02:35:00 Test Item Value Reference Range Interpretation Comments Novel Coronavirus 2019 Inhouse (test Negative Negative code = COVNONPUI) Testing Criteria: Preprocedure ScreeningNovel Coronavirus 2019 Inhouse 2019-07-27 02:35:00 Test Item Value Reference Range Interpretation Comments Novel Coronavirus 2019 Inhouse (test Negative Negative code = COVNONPUI) Testing Criteria: Preprocedure Screening- XR CHEST 2 [id number] 10:40:00 FAX: Antelmo Armando MD [phone] [place]: O St: PRE Name: GEM LAI [facility] : 2000 Age/S: 18/F [address] [facility] Unit#: [id number] [facility] [address] Phys: Antelmo Richardson MD Acct: [id number] Dis Date: Status: PRE IN PHONE #: [phone] Exam Date: 07/24/2019 0955 FAX #: [phone] Reason: PRE OP EXAMS: CPT CODE: [id number] XR CHEST 2 V 81209 REASON FOR EXAM: PRE OP Exam Order Date:07/24/2019 9:10 AM Ordering M.DJah: Antelmo Richardson MD PROCEDURE: - XR KATERYNA ST 2 V COMPARISON: Chest x-ray June 04, 2019 FINDINGS: The lungs are clear. There is no pleural effusion or pneumothorax. Pulmonary vascularity is within normal limits. Cardiomediastinal silhouette is normal in size for technique. The medi astinal contours are within normal limits. Musculoskeletal structures are within normal limits. The visualized upper abdomen is within normal limits.IMPRESSION: No acute cardiopulmonary process. Location: [facility] at 1040 Reported and signed by: Vikas Callaway MD CC: Antelmo Richardson MD Technologist: RT MAGDALENA(Francheska) Trnscrd Date/Time/By: 07/24/2019 (1040) : By: [email or web address] Orig Print D/T: S: 07/24/2019 (7258) PAGE 1 Signed ReportCOMPREHENSIVE METABOLIC [id number] 10:26:00 Test Item Value Reference Range Interpretation Comments SODIUM (test code = 139 mmol/L 136-145 N NA) POTASSIUM (test code = 4.0 mmol/L 3.5-5.1 N K) CHLORIDE (test code = 107.0 mmol/L 98-107 N CL) CARBON DIOXIDE (test 25.0 mmol/L 21-32 N code = CO2) ANION GAP (test code = 11.0 10-20 N GAP) GLUCOSE (test code = 84 mg/dL 74-106 N GLU) BLOOD UREA NITROGEN 10 mg/dL 7-18 N (test code = BUN) GLOMERULAR FILTRATION > 60 mL/min >=60 Estima pamela GFR by RATE (test code = GFR) using Modified MDRD formula.Chronic kidney disease is defined as eith er kidney damageor GFR <60 mL/min/1.73 m2 for >3 months. CREATININE (test code 0.70 mg/dL 0.55-1.02 N Note change in = CREAT) reference range due to change in reagent. BUN/CREATININE RATIO 14.2 10-20 N (test code = BUN/CREA) TOTAL PROTEIN (test 8.1 gram/dL 6.4-8.2 N code = PROT) ALBUMIN (test code = 3.5 g/dL 3.4-5.0 N ALB) GLOBULIN (test code = 4.6 gram/dL 2.7-4.2 H GLOB) ALBUMIN/GLOBULIN RATIO 0.8 0.75-1.50 N (test code = A/G) CALCIUM (test code = 9.2 mg/dL 8.5-10.1 N CA) BILIRUBIN TOTAL (test 0.20 mg/dL 0.0-1.0 N code = BILT) SGOT/AST (test code = 18 IUnit/L 15-37 N AST) SGPT/ALT (test code = 36 IUnit/L 12-78 N ALT) ALKALINE PHOSPHATASE 83 IUnit/L 37-107 N TOTAL (test code = ALKP) HCG SERUM [id number] 10:23:00 Test Item Value Reference Range Interpretation Comments HCG SERUM BETA < 1.0 mIU/mL 0-3 N INTERPRETATIO N:B-HCG (test code = HCG) LEVELS <5 SHOULD BE CONSIDERED "NEGATIVE." *WH EN BODERLINE RESUL TS ARE ENCOUNTERED,PAT IENT SAMPLESSHOULD B E REDRAWN 48 HOURS. 0-1 WEEKS AFTER CONCEPTIO N 5-50 MIU/ML1-2 WEEKS AFTER CONCEPTION 50-500 MIU/ ML2-3 WEEKS AFTER CON CEPTION 100 - 5,000 MIU/ML3-4 WEEKS AFTER CONCEPTION 500-10,000 MIU /ML4-5 WEEKS AFTER CON CEPTION 1000 -50 ,000 MIU/ML5-6 WEEKS AFTER CONCEPTION 10,000-100,000 MIU/ML6-8 WEEKS AFTER CONCEPTION 15,000- 200,000 MIU/ML2-3 MONTH S AFTER CONCEPTION 10,000-100,000 MIU/ML IS THIS PATIENT ? NOCOMPREHENSIVE METABOLIC [id number] 10:18:00 Test Item Value Reference Range Interpretation Comments SODIUM (test code = NA) 139 mmol/L 136-145 N POTASSIUM (test code = K) 4.0 mmol/L 3.5-5.1 N CHLORIDE (test code = CL) 107.0 mmol/L 98-107 N CARBON DIOXIDE (test code = CO2) mmol/L 21-32 ANION GAP (test code = GAP) 10-20 GLUCOSE (test code = GLU) mg/dL 74-106 BLOOD UREA NITROGEN (test code = mg/dL 7-18 BUN) GLOMERULAR FILTRATION RATE (test mL/min >=60 code = GFR) CREATININE (test code = CREAT) mg/dL 0.55-1.02 BUN/CREATININE RATIO (test code 10-20 = BUN/CREA) TOTAL PROTEIN (test code = PROT) gram/dL 6.4-8.2 ALBUMIN (test code = ALB) g/dL 3.4-5.0 GLOBULIN (test code = GLOB) gram/dL 2.7-4.2 ALBUMIN/GLOBULIN RATIO (test 0.75-1.50 code = A/G) CALCIUM (test code = CA) mg/dL 8.5-10.1 BILIRUBIN TOTAL (test code = mg/dL 0.0-1.0 BILT) SGOT/AST (test code = AST) IUnit/L 15-37 SGPT/ALT (test code = ALT) IUnit/L 12-78 ALKALINE PHOSPHATASE TOTAL (test IUnit/L 37-107 code = ALKP) PROTHROMBIN [id number] 10:14:00 Test Item Value Reference Range Interpretation Comments PROTHROMBIN TIME 12.5 seconds 9.0-14.0 N PATIENT (test code = PTP) INTERNATIONAL NORMAL 1.1 0.8-1.2 N The the rapeutic range RATIO (test code = for oral INR) anticoagulant t herapy formost indicat ions is an internati onal normalized rati o (INR)of between 2.0 and 3.0. The recommended therapeutic INR range for various cli nical situations is l isted below: Clinical Situat ion INR range Pulmonary embol ism treatment (2.0-3.0)Venou s thrombosis treatmentVenous thrombosis prophylaxis (hi gh risk surgery)Prevent ion of systemic emboli sm from: A cute myocardial infa rction Valvula r heart disease Atrial fibrilla tion Mechanical pros thetic heart valves (2.5-3.5) IS PATIENT ON ANTICOAGULANTS? NTHROMBOPLASTIN TIME [id number] 10:14:00 Test Item Value Reference Range Interpretation Comments THROMBOPLASTIN TIME PARTIAL 42.3 seconds 23.0-37.0 H (test code = PTT) IS PATIENT ON ANTICOAGULANTS? NURINALYSIS [id number] 10:11:00 Test Item Value Reference Range Interpretation Comments UA COLOR (test code = COLU) COLORLESS YELLOW A UA APPEARANCE (test code = CLEAR CLEAR APPU) UA GLUCOSE DIPSTICK (test NEGATIVE mg/dL NEGATIVE code = DGLUU) UA BILIRUBIN DIPSTICK (test NEGATIVE mg/dL NEGATIVE code = BILU) UA KETONE DIPSTICK (test code NEGATIVE mg/dL NEGATIVE = KETU) UA SPECIFIC GRAVITY (test 1.007 1.001-1.035 code = SGU) UA BLOOD DIPSTICK (test code Negative mg/dL NEGATIVE = DEMETRIUS) UA PH DIPSTICK (test code = 6.0 5.0-8.0 ZENON) UA PROTEIN DIPSTICK (test NEGATIVE mg/dL NEGATIVE code = PROU) UA UROBILINIOGEN DIPSTICK Normal mg/dL NEGATIVE (test code = URO) UA NITRITE DIPSTICK (test NEGATIVE NEGATIVE code = CAITLIN) UA LEUKOCYTE ESTERASE W NEGATIVE Dee Dee/uL NEGATIVE REFLEX (test code = LEUUR) UA WBC (test code = WBCU) 0-5 per HPF 0-5 UA RBC (test code = RBCU) NONE SEEN #/HPF 0-5 UA EPITHELIAL CELLS (test FEW per HPF FEW code = EPIU) UA BACTERIA (test code = FEW #/HPF NONE A BACU) UA MUCUS (test code = MUCU) FEW #/LPF FEW Urine Source? Clean CatchURINALYSIS [id number] 10:07:00 Test Item Value Reference Range Interpretation Comments UA COLOR (test code = COLU) COLORLESS YELLOW A UA APPEARANCE (test code = CLEAR CLEAR APPU) UA GLUCOSE DIPSTICK (test NEGATIVE mg/dL NEGATIVE code = DGLUU) UA BILIRUBIN DIPSTICK (test NEGATIVE mg/dL NEGATIVE code = BILU) UA KETONE DIPSTICK (test code NEGATIVE mg/dL NEGATIVE = KETU) UA SPECIFIC GRAVITY (test 1.007 1.001-1.035 code = SGU) UA BLOOD DIPSTICK (test code Negative mg/dL NEGATIVE = DEMETRIUS) UA PH DIPSTICK (test code = 6.0 5.0-8.0 ZENON) UA PROTEIN DIPSTICK (test NEGATIVE mg/dL NEGATIVE code = PROU) UA UROBILINIOGEN DIPSTICK Normal mg/dL NEGATIVE (test code = URO) UA NITRITE DIPSTICK (test NEGATIVE NEGATIVE code = CAITLIN) UA LEUKOCYTE ESTERASE W NEGATIVE Dee Dee/uL NEGATIVE REFLEX (test code = LEUUR) UA WBC (test code = WBCU) per HPF 0-5 UA RBC (test code = RBCU) per HPF 0-5 UA EPITHELIAL CELLS (test per HPF Few code = EPIU) UA BACTERIA (test code = per HPF NONE BACU) Urine Source? Clean CatchCBC W/AUTO [id number] 10:04:00 Test Item Value Reference Range Interpretation Comments WHITE BLOOD CELL (test code = 13.1 K/mm3 4.5-12.5 H WBC) RED BLOOD CELL (test code = 4.25 mill/mm3 3.7-5.2 N RBC) HEMOGLOBIN (test code = HGB) 11.2 gram/dL 11.5-15.5 L HEMATOCRIT (test code = HCT) 35.6 % 36.0-46.0 L MEAN CELL VOLUME (test code = 83.8 fL 80-98 N MCV) MEAN CELL HGB (test code = MCH) 26.4 picogram 27.0-33.0 L MEAN CELL HGB CONCETRATION 31.5 gram/dL 33.0-36.0 L (test code = MCHC) RED CELL DISTRIBUTION WIDTH 15.6 % 11.6-16.2 N (test code = RDW) RED CELL DISTRIBUTION WIDTH SD 47.4 fL 37.0-51.0 N (test code = RDW-SD) PLATELET COUNT (test code = 444 K/mm3 150-450 N PLT) MEAN PLATELET VOLUME (test code 9.5 fL 6.7-11.0 N = MPV) NEUTROPHIL % (test code = NT%) 76.0 % 39.0-69.0 H IMMATURE GRANULOCYTE % (test 0.4 % 0.0-5.0 N code = IG%) LYMPHOCYTE % (test code = LY%) 16.9 % 25.0-55.0 L MONOCYTE % (test code = MO%) 5.0 % 0.0-10.0 N EOSINOPHIL % (test code = EO%) 1.2 % 0.0-5.0 N BASOPHIL % (test code = BA%) 0.5 % 0.0-1.0 N NUCLEATED RBC % (test code = 0.0 % 0-0 N NRBC%) NEUTROPHIL # (test code = NT#) 9.99 K/mm3 1.8-7.7 H IMMATURE GRANULOCYTE # (test 0.05 x10 3/uL 0-0.03 H code = IG#) LYMPHOCYTE # (test code = LY#) 2.22 K/mm3 1.0-5.0 N MONOCYTE # (test code = MO#) 0.66 K/mm3 0-0.8 N EOSINOPHIL # (test code = EO#) 0.16 K/mm3 0.0-0.5 N BASOPHIL # (test code = BA#) 0.06 K/mm3 0.0-0.2 N NUCLEATED RBC # (test code = 0.00 K/mm3 0.0-0.1 N NRBC#) LIPID PROFILE (CORONARY RISK)2019-06-07 19:07:00 Test Item Value Reference Range Interpretation Comments TRIGLYCERIDES (test 185 mg/dL 20-150 H code = TRIG) CHOLESTEROL (test code 190 mg/dL 0-200 N = CHOL) CHOLESTEROL/HDL RATIO 6.0 RATIO 0-4.9 H RISK A SSOCIATED WITH (test code = CHOLHDL) CHOL/H DL RATIOS: Risk M krista Female1/[address] RAGE 3.43 3.27AVERAGE 4.97 4.4 [address]X AVERAGE 9[address] RAGE 23.39 11.04 REFERENCE VALUE IS RELATED TO RISK LEVELS ASRECOMMENDED B Y THE CLEMENT[place]. HEART, NICA G, AND BLOOD INST. HDL CHOLESTEROL (test 29 mg/dL 40-60 L code = HDL) LIPOPROTEIN LDL (test 125 mg/dL 100-129 N RN LUIZA DODSON, CONTACT code = LDL) PHYSICIAN IMMED IATELY IF THIS IS A ST ROKE, AMI OR CAROTID STENOSIS PATIEN T WHEN THE LDL >100 ([address] OCCURENCE, THIS ADMISSION)===== ======= ======= ======= ===Reference In terval: mg/dL mmol/L-------- ------- ------- ------- Optimal <100 <2.6Near/above optimal 100-12 9 2.6-3.3Borderl ine High 130-159 3.4-4.1High 160 -189 4.1-4.9Very High >=190 >=4.9========= This LDL result is a direct measurement.=== ====== HEPATIC FUNCTION [id number] 19:07:00 Test Item Value Reference Range Interpretation Comments TOTAL PROTEIN (test code = PROT) 8.0 gram/dL 6.4-8.2 N ALBUMIN (test code = ALB) 3.6 g/dL 3.4-5.0 N GLOBULIN (test code = GLOB) 4.4 gram/dL 2.7-4.2 H ALBUMIN/GLOBULIN RATIO (test code 0.8 0.75-1.50 N = A/G) BILIRUBIN TOTAL (test code = 0.30 mg/dL 0.0-1.0 N BILT) BILIRUBIN DIRECT (test code = 0.10 mg/dL 0.0-0.20 N BILD) SGOT/AST (test code = AST) 23 IUnit/L 15-37 N SGPT/ALT (test code = ALT) 40 IUnit/L 12-78 N ALKALINE PHOSPHATASE TOTAL (test 99 IUnit/L 37-107 N code = ALKP) HCG SERUM [id number] 19:07:00 Test Item Value Reference Range Interpretation Comments HCG SERUM QUAL (test NEGATIVE NEGATIVE This HC GQL test is NOT code = HCGQL) applicable for MALE patients.Check with nurse about probable order error.If Tumor Marker Test needed, nu rse should order test "HCG TU"(Test #[id number])---- - VITAMIN [id number] 19:07:00 Test Item Value Reference Range Interpretation Comments VITAMIN B12 (test code = VITB12) 446 pg/mL 193-986 N FOLIC [id number] 19:07:00 Test Item Value Reference Range Interpretation Comments FOLIC ACID (test code = FOL) 15.8 ng/mL 3.10-17.50 N THYROID PROFILE [id number] 19:07:00 Test Item Value Reference Range Interpretation Comments T3 UPTAKE (test code = 34.0 % 30.0-40.0 N T3UP) T4 (THYROXINE) (test 9.6 ug/dL 4.5-13.9 N code = T4) T7 (FREE THYROXINE 3.26 FTI 1.3-5.1 N INDEX) (test code = T7) THYROID STIMULATING 4.470 uIU/mL 0.36-3.74 H TSH REFE RENCE HORMONE (test code = RANGES: EUTHYROID: TSH) 0.35 - 4.3 mIU/mL HYPO : > 5.5 mIU/mL HYPER : < 0.35 mIU/mL T4 [id number] 19:07:00 Test Item Value Reference Range Interpretation Comments T4 FREE (test code = T4F) 1.04 ng/dL 0.76-1.46 N VIT B1 WHOLE [id number] 19:07:00 Test Item Value Reference Range Interpretation Comments VIT B1 WHOLE BLOOD 125.5 nmol/L 66.5-200.0 Performed At: (test code = [facility] [id number]) [place], [place] [id number] yuliana Aviles MD Ph:[phone] T3 [id number] 06:08:00 Test Item Value Reference Range Interpretation Comments T3 FREE (test code = 3.4 pg/mL 2.3-5.0 Perform ed At: [facility] T3F) [address] [id number] Kyle L MD Ph:[phone] Novel Coronavirus 13:12:00 Test Item Value Reference Range Interpretation Comments Novel Coronavirus Negative Negative Positive r esults are 2019 Inhouse (test indicativ e of the presence code = [id number]) ofSARS-CoV -2 RNA, clinical correlation wit h patient historyand othe r diagnostic info rmation is necessary to determinepatien t infection status. Positiv e results do not rule out bacterial infection or co -infection with other viru ses. Negative result s do not preclude SARS-C oV-2 infection andsh ould not be used as the qiana e basis for patient managementdecis ions. Negative result s must be combined with otherclinical observations, p atient history, and epidemiological information . Detection of SARS-CoV-2 RNA may be affe cted bysample collec tion methods, storag e conditions, and /or stageof infection. Qing l RNA mutations, vacc inations, antiviraltherap eutics, antibiotics, chemotherapeuti c orimmunosuppres cristobal drugs have not been e valuated for effectson d etection. Results are for the identification of SARS-CoV-2 RNA usingthe [employer] M2000 Sy stem under the FDA Emergen cy UseAuthorizatio n. The testing is perf ormed by personneltraine d in the procedures for the [employer] molecular diagnostic SARS-CoV-2 assa y in vitro. Testing Criteria: Preprocedure ScreeningNovel Coronavirus [id number] 13:11:00 Test Item Value Reference Range Interpretation Comments Novel Coronavirus Negative Negative Positive r esults are 2019 Inhouse (test indicativ e of the presence code = [id number]) ofSARS-CoV -2 RNA, clinical correlation wit h patient historyand othe r diagnostic info rmation is necessary to determinepatien t infection status. Positiv e results do not rule out bacterial infection or co -infection with other viru ses. Negative result s do not preclude SARS-C oV-2 infection andsh ould not be used as the qiana e basis for patient managementdecis ions. Negative result s must be combined with otherclinical observations, p atient history, and epidemiological information . Detection of SARS-CoV-2 RNA may be affe cted bysample collec tion methods, storag e conditions, and /or stageof infection. Qing l RNA mutations, vacc inations, antiviraltherap eutics, antibiotics, chemotherapeuti c orimmunosuppres cristobal drugs have not been e valuated for effectson d etection. Results are for the identification of SARS-CoV-2 RNA usingthe [employer] M2000 Sy stem under the FDA Emergen cy UseAuthorizatio n. The testing is perf ormed by personneltraine d in the procedures for the [employer] molecular diagnostic SARS-CoV-2 assa y in vitro. Testing Criteria: Preprocedure ScreeningAB HIV 1 13:33:00 Test Item Value Reference Range Interpretation Comments AB HIV 1 2 Nonreactive NonReactive It is recognize d that (test code = currently avail able [id number]) assays for thed etection of antibodies t o HIV-1 and/or HIV-2 ma y notdetect all i nfected individuals. A negative test result damon snot exclude the pos sibility of exposure to or infection withH IV. HIV antibodies may be undetectable in some stages ofthe in fection and in some cli nical conditions. AB HELICOBACTER [id number] 12:21:00 Test Item Value Reference Range Interpretation Comments AB HELICOBACTER IGG (test code = NEGATIVE NEGATIVE HELIGAB) LIPID PROFILE (CORONARY RISK)2019-06-04 12:13:00 Test Item Value Reference Range Interpretation Comments TRIGLYCERIDES (test 185 mg/dL 20-150 H code = TRIG) CHOLESTEROL (test code 190 mg/dL 0-200 N = CHOL) CHOLESTEROL/HDL RATIO 6.0 RATIO 0-4.9 H RISK A SSOCIATED WITH (test code = CHOLHDL) CHOL/H DL RATIOS: Risk M krista Female1/[address] A[address] RAGE 3.43 3.27AVERAGE 4.97 4.4 41X AVERAGE 9.[address] RAGE 23.39 11.04 REFERENCE VALUE IS RELATED TO RISK LEVELS ASRECOMMENDED B Y THE [place]. HEART, NICA G, AND BLOOD INST. HDL CHOLESTEROL (test 29 mg/dL 40-60 L code = HDL) LIPOPROTEIN LDL (test 125 mg/dL 100-129 N JAMES DODSON, CONTACT code = LDL) PHYSICIAN IMMED IATELY IF THIS IS A [facility] [place], AMI OR CAROTID STENOSIS PATIEN T WHEN THE LDL >100 ([address] OCCURENCE, THIS ADMISSION)===== ======= ======= ======= ===Reference In terval: mg/dL mmol/L-------- ------- ------- ------- Optimal <100 <2.6Near/above optimal 100-12 9 2.6-3.3Borderl ine High 130-159 3.4-4.1High 160 -189 4.1-4.9Very High >=190 >=4.9========= This LDL result is a direct measurement.=== ====== HEPATIC FUNCTION [id number] 12:13:00 Test Item Value Reference Range Interpretation Comments TOTAL PROTEIN (test code = PROT) 8.0 gram/dL 6.4-8.2 N ALBUMIN (test code = ALB) 3.6 g/dL 3.4-5.0 N GLOBULIN (test code = GLOB) 4.4 gram/dL 2.7-4.2 H ALBUMIN/GLOBULIN RATIO (test code 0.8 0.75-1.50 N = A/G) BILIRUBIN TOTAL (test code = 0.30 mg/dL 0.0-1.0 N BILT) BILIRUBIN DIRECT (test code = 0.10 mg/dL 0.0-0.20 N BILD) SGOT/AST (test code = AST) 23 IUnit/L 15-37 N SGPT/ALT (test code = ALT) 40 IUnit/L 12-78 N ALKALINE PHOSPHATASE TOTAL (test 99 IUnit/L 37-107 N code = ALKP) HCG SERUM [id number] 12:13:00 Test Item Value Reference Range Interpretation Comments HCG SERUM QUAL (test NEGATIVE NEGATIVE This HC GQL test is NOT code = HCGQL) applicable for MALE patients.Check with nurse about probable order error.If Tumor Marker Test needed, nu rse should order test "HCG TU"(Test #550.83353)---- - VITAMIN [id number] 12:13:00 Test Item Value Reference Range Interpretation Comments VITAMIN B12 (test code = VITB12) 446 pg/mL 193-986 N FOLIC [id number] 12:13:00 Test Item Value Reference Range Interpretation Comments FOLIC ACID (test code = FOL) 15.8 ng/mL 3.10-17.50 N THYROID PROFILE [id number] 12:13:00 Test Item Value Reference Range Interpretation Comments T3 UPTAKE (test code = 34.0 % 30.0-40.0 N T3UP) T4 (THYROXINE) (test 9.6 ug/dL 4.5-13.9 N code = T4) T7 (FREE THYROXINE 3.26 FTI 1.3-5.1 N INDEX) (test code = T7) THYROID STIMULATING 4.470 uIU/mL 0.36-3.74 H TSH REFE RENCE HORMONE (test code = RANGES: EUTHYROID: TSH) 0.35 - 4.3 mIU/mL HYPO : > 5.5 mIU/mL HYPER : < 0.35 mIU/mL T4 [id number] 12:13:00 Test Item Value Reference Range Interpretation Comments T4 FREE (test code = T4F) 1.04 ng/dL 0.76-1.46 N VIT B1 WHOLE [id number] 12:13:00 Test Item Value Reference Range Interpretation Comments VIT B1 WHOLE BLOOD (test code = nmol/L 87-280 YEWI4LO) [id number] 11:51:00 Test Item Value Reference Range Interpretation Comments GLYCOSYLATED HEMOGLOBIN 5.7 % HbA1 BLANCA SCHAFFER DIAGNOSIS: (HA1C) (test code = HbA1C GLYHGB) (%) ----- ----- Diab etic >6.4Prediabetes 5.7 - 6.4Normal <5.7 ESTIMATED AVERAGE 117 MG/DL GLUCOSE (test code = EAG) COMPREHENSIVE METABOLIC [id number] 11:42:00 Test Item Value Reference Range Interpretation Comments SODIUM (test code = 139 mmol/L 136-145 N NA) POTASSIUM (test code = 3.8 mmol/L 3.5-5.1 N K) CHLORIDE (test code = 105.0 mmol/L 98-107 N CL) CARBON DIOXIDE (test 28.0 mmol/L 21-32 N code = CO2) ANION GAP (test code = 9.8 10-20 L GAP) GLUCOSE (test code = 83 mg/dL 74-106 N GLU) BLOOD UREA NITROGEN 7 mg/dL 7-18 N (test code = BUN) GLOMERULAR FILTRATION > 60 mL/min >=60 Estima pamela GFR by RATE (test code = GFR) using Modified MDRD formula.Chronic kidney disease is defined as eith er kidney damageor GFR <60 mL/min/1.73 m2 for >3 months. CREATININE (test code 0.80 mg/dL 0.55-1.02 N Note change in = CREAT) reference range due to change in reagent. BUN/CREATININE RATIO 8.8 10-20 L (test code = BUN/CREA) TOTAL PROTEIN (test 8.4 gram/dL 6.4-8.2 H code = PROT) ALBUMIN (test code = 3.6 g/dL 3.4-5.0 N ALB) GLOBULIN (test code = 4.8 gram/dL 2.7-4.2 H GLOB) ALBUMIN/GLOBULIN RATIO 0.8 0.75-1.50 N (test code = A/G) CALCIUM (test code = 9.0 mg/dL 8.5-10.1 N CA) BILIRUBIN TOTAL (test 0.40 mg/dL 0.0-1.0 N code = BILT) SGOT/AST (test code = 22 IUnit/L 15-37 N AST) SGPT/ALT (test code = 39 IUnit/L 12-78 N ALT) ALKALINE PHOSPHATASE 96 IUnit/L 37-107 N TOTAL (test code = ALKP) LIPID PROFILE (CORONARY RISK)2019-06-04 11:40:00 Test Item Value Reference Range Interpretation Comments TRIGLYCERIDES (test code = TRIG) mg/dL 20-150 CHOLESTEROL (test code = CHOL) mg/dL 0-200 CHOLESTEROL/HDL RATIO (test code = RATIO 0-4.9 CHOLHDL) HDL CHOLESTEROL (test code = HDL) mg/dL 40-60 LIPOPROTEIN LDL (test code = LDL) mg/dL 100-129 HEPATIC FUNCTION [id number] 11:40:00 Test Item Value Reference Range Interpretation Comments TOTAL PROTEIN (test code = PROT) gram/dL 6.4-8.2 ALBUMIN (test code = ALB) g/dL 3.4-5.0 GLOBULIN (test code = GLOB) gram/dL 2.7-4.2 ALBUMIN/GLOBULIN RATIO (test code = 0.75-1.50 A/G) BILIRUBIN TOTAL (test code = BILT) mg/dL 0.0-1.0 BILIRUBIN DIRECT (test code = BILD) mg/dL 0.0-0.20 SGOT/AST (test code = AST) IUnit/L 15-37 SGPT/ALT (test code = ALT) IUnit/L 12-78 ALKALINE PHOSPHATASE TOTAL (test IUnit/L 37-107 code = ALKP) HCG SERUM [id number] 11:40:00 Test Item Value Reference Range Interpretation Comments HCG SERUM QUAL (test NEGATIVE NEGATIVE This HC GQL test is NOT code = HCGQL) applicable for MALE patients.Check with nurse about probable order error.If Tumor Marker Test needed, nu rse should order test "HCG TU"(Test #[id number])---- - VITAMIN [id number] 11:40:00 Test Item Value Reference Range Interpretation Comments VITAMIN B12 (test code = VITB12) pg/mL 193-986 FOLIC [id number] 11:40:00 Test Item Value Reference Range Interpretation Comments FOLIC ACID (test code = FOL) ng/mL 3.10-17.50 THYROID PROFILE [id number] 11:40:00 Test Item Value Reference Range Interpretation Comments T3 UPTAKE (test code = T3UP) % 30.0-40.0 T4 (THYROXINE) (test code = T4) ug/dL 4.5-13.9 T7 (FREE THYROXINE INDEX) (test code FTI 1.3-5.1 = T7) THYROID STIMULATING HORMONE (test uIU/mL 0.36-3.74 code = TSH) T4 [id number] 11:40:00 Test Item Value Reference Range Interpretation Comments T4 FREE (test code = T4F) ng/dL 0.76-1.46 VIT B1 WHOLE [id number] 11:40:00 Test Item Value Reference Range Interpretation Comments VIT B1 WHOLE BLOOD (test code = nmol/L 87-280 [id number]) PROTHROMBIN [id number] 11:40:00 Test Item Value Reference Range Interpretation Comments PROTHROMBIN TIME 13.0 seconds 9.0-14.0 N PATIENT (test code = PTP) INTERNATIONAL NORMAL 1.1 0.8-1.2 N The the rapeutic range RATIO (test code = for oral INR) anticoagulant t herapy formost indicat ions is an internati onal normalized rati o (INR)of between 2.0 and 3.0. The recommended therapeutic INR range for various cli nical situations is l isted below: Clinical Situat ion INR range Pulmonary embol ism treatment (2.0-3.0)Venou s thrombosis treatmentVenous thrombosis prophylaxis (hi gh risk surgery)Prevent ion of systemic emboli sm from: A cute myocardial infa rction Valvula r heart disease Atrial fibrilla tion Mechanical pros thetic heart valves (2.5-3.5) IS PATIENT ON ANTICOAGULANTS? NTHROMBOPLASTIN TIME [id number] 11:40:00 Test Item Value Reference Range Interpretation Comments THROMBOPLASTIN TIME PARTIAL 42.5 seconds 23.0-37.0 H (test code = PTT) IS PATIENT ON ANTICOAGULANTS? NCOMPREHENSIVE METABOLIC [id number] 11:35:00 Test Item Value Reference Range Interpretation Comments SODIUM (test code = NA) 139 mmol/L 136-145 N POTASSIUM (test code = K) 3.8 mmol/L 3.5-5.1 N CHLORIDE (test code = CL) 105.0 mmol/L 98-107 N CARBON DIOXIDE (test code = CO2) mmol/L 21-32 ANION GAP (test code = GAP) 10-20 GLUCOSE (test code = GLU) mg/dL 74-106 BLOOD UREA NITROGEN (test code = mg/dL 7-18 BUN) GLOMERULAR FILTRATION RATE (test mL/min >=60 code = GFR) CREATININE (test code = CREAT) mg/dL 0.55-1.02 BUN/CREATININE RATIO (test code 10-20 = BUN/CREA) TOTAL PROTEIN (test code = PROT) gram/dL 6.4-8.2 ALBUMIN (test code = ALB) g/dL 3.4-5.0 GLOBULIN (test code = GLOB) gram/dL 2.7-4.2 ALBUMIN/GLOBULIN RATIO (test 0.75-1.50 code = A/G) CALCIUM (test code = CA) mg/dL 8.5-10.1 BILIRUBIN TOTAL (test code = mg/dL 0.0-1.0 BILT) SGOT/AST (test code = AST) IUnit/L 15-37 SGPT/ALT (test code = ALT) IUnit/L 12-78 ALKALINE PHOSPHATASE TOTAL (test IUnit/L 37-107 code = ALKP) CBC W/AUTO [id number] 11:27:00 Test Item Value Reference Range Interpretation Comments WHITE BLOOD CELL (test code = K/mm3 4.5-12.5 WBC) RED BLOOD CELL (test code = RBC) mill/mm3 3.7-5.2 HEMOGLOBIN (test code = HGB) 12.1 gram/dL 11.5-15.5 N HEMATOCRIT (test code = HCT) 36.9 % 36.0-46.0 N MEAN CELL VOLUME (test code = fL 80-98 MCV) MEAN CELL HGB (test code = MCH) picogram 27.0-33.0 MEAN CELL HGB CONCETRATION (test gram/dL 33.0-36.0 code = MCHC) RED CELL DISTRIBUTION WIDTH % 11.6-16.2 (test code = RDW) RED CELL DISTRIBUTION WIDTH SD fL 37.0-51.0 (test code = RDW-SD) PLATELET COUNT (test code = PLT) K/mm3 150-450 MEAN PLATELET VOLUME (test code fL 6.7-11.0 = MPV) NEUTROPHIL % (test code = NT%) % 39.0-69.0 IMMATURE GRANULOCYTE % (test % 0.0-5.0 code = IG%) LYMPHOCYTE % (test code = LY%) % 25.0-55.0 MONOCYTE % (test code = MO%) % 0.0-10.0 EOSINOPHIL % (test code = EO%) % 0.0-5.0 BASOPHIL % (test code = BA%) % 0.0-1.0 NEUTROPHIL # (test code = NT#) K/mm3 1.8-7.7 LYMPHOCYTE # (test code = LY#) K/mm3 1.0-5.0 MONOCYTE # (test code = MO#) K/mm3 0-0.8 EOSINOPHIL # (test code = EO#) K/mm3 0.0-0.5 BASOPHIL # (test code = BA#) K/mm3 0.0-0.2 CBC W/AUTO [id number] 11:27:00 Test Item Value Reference Range Interpretation Comments WHITE BLOOD CELL (test code = 9.5 K/mm3 4.5-12.5 N WBC) RED BLOOD CELL (test code = 4.55 mill/mm3 3.7-5.2 N RBC) HEMOGLOBIN (test code = HGB) 12.1 gram/dL 11.5-15.5 N HEMATOCRIT (test code = HCT) 36.9 % 36.0-46.0 N MEAN CELL VOLUME (test code = 81.1 fL 80-98 N MCV) MEAN CELL HGB (test code = MCH) 26.6 picogram 27.0-33.0 L MEAN CELL HGB CONCETRATION 32.8 gram/dL 33.0-36.0 L (test code = MCHC) RED CELL DISTRIBUTION WIDTH 14.7 % 11.6-16.2 N (test code = RDW) RED CELL DISTRIBUTION WIDTH SD 43.3 fL 37.0-51.0 N (test code = RDW-SD) PLATELET COUNT (test code = 456 K/mm3 150-450 H PLT) MEAN PLATELET VOLUME (test code 10.1 fL 6.7-11.0 N = MPV) NEUTROPHIL % (test code = NT%) 66.2 % 39.0-69.0 N IMMATURE GRANULOCYTE % (test 0.4 % 0.0-5.0 N code = IG%) LYMPHOCYTE % (test code = LY%) 25.1 % 25.0-55.0 N MONOCYTE % (test code = MO%) 6.3 % 0.0-10.0 N EOSINOPHIL % (test code = EO%) 1.4 % 0.0-5.0 N BASOPHIL % (test code = BA%) 0.6 % 0.0-1.0 N NUCLEATED RBC % (test code = 0.0 % 0-0 N NRBC%) NEUTROPHIL # (test code = NT#) 6.27 K/mm3 1.8-7.7 N IMMATURE GRANULOCYTE # (test 0.04 x10 3/uL 0-0.03 H code = IG#) LYMPHOCYTE # (test code = LY#) 2.38 K/mm3 1.0-5.0 N MONOCYTE # (test code = MO#) 0.60 K/mm3 0-0.8 N EOSINOPHIL # (test code = EO#) 0.13 K/mm3 0.0-0.5 N BASOPHIL # (test code = BA#) 0.06 K/mm3 0.0-0.2 N NUCLEATED RBC # (test code = 0.00 K/mm3 0.0-0.1 N NRBC#) URINALYSIS [id number] 11:24:00 Test Item Value Reference Range Interpretation Comments UA COLOR (test code = COLU) Light-Yellow YELLOW UA APPEARANCE (test code = CLEAR CLEAR APPU) UA GLUCOSE DIPSTICK (test NEGATIVE mg/dL NEGATIVE code = DGLUU) UA BILIRUBIN DIPSTICK (test NEGATIVE mg/dL NEGATIVE code = BILU) UA KETONE DIPSTICK (test code NEGATIVE mg/dL NEGATIVE = KETU) UA SPECIFIC GRAVITY (test 1.019 1.001-1.035 code = SGU) UA BLOOD DIPSTICK (test code Negative mg/dL NEGATIVE = DEMETRIUS) UA PH DIPSTICK (test code = 6.0 5.0-8.0 ZENON) UA PROTEIN DIPSTICK (test NEGATIVE mg/dL NEGATIVE code = PROU) UA UROBILINIOGEN DIPSTICK Normal mg/dL NEGATIVE (test code = URO) UA NITRITE DIPSTICK (test NEGATIVE NEGATIVE code = CAITLIN) UA LEUKOCYTE ESTERASE W NEGATIVE Dee Dee/uL NEGATIVE REFLEX (test code = LEUUR) UA WBC (test code = WBCU) 0-5 per HPF 0-5 UA RBC (test code = RBCU) 0-2 #/HPF 0-5 UA EPITHELIAL CELLS (test FEW per HPF FEW code = EPIU) UA BACTERIA (test code = NONE SEEN #/HPF NONE BACU) UA MUCUS (test code = MUCU) FEW #/LPF FEW SPECIMEN COMMENTS: REFLEX TO CULTUREUrine Source? VoidedURINALYSIS COMPLETE 2019-06-04 11:20:00 Test Item Value Reference Range Interpretation Comments UA COLOR (test code = COLU) Light-Yellow YELLOW UA APPEARANCE (test code = CLEAR CLEAR APPU) UA GLUCOSE DIPSTICK (test NEGATIVE mg/dL NEGATIVE code = DGLUU) UA BILIRUBIN DIPSTICK (test NEGATIVE mg/dL NEGATIVE code = BILU) UA KETONE DIPSTICK (test code NEGATIVE mg/dL NEGATIVE = KETU) UA SPECIFIC GRAVITY (test 1.019 1.001-1.035 code = SGU) UA BLOOD DIPSTICK (test code Negative mg/dL NEGATIVE = DEMETRIUS) UA PH DIPSTICK (test code = 6.0 5.0-8.0 ZENON) UA PROTEIN DIPSTICK (test NEGATIVE mg/dL NEGATIVE code = PROU) UA UROBILINIOGEN DIPSTICK Normal mg/dL NEGATIVE (test code = URO) UA NITRITE DIPSTICK (test NEGATIVE NEGATIVE code = CAITLIN) UA LEUKOCYTE ESTERASE W NEGATIVE Dee Dee/uL NEGATIVE REFLEX (test code = LEUUR) UA WBC (test code = WBCU) per HPF 0-5 UA RBC (test code = RBCU) per HPF 0-5 UA EPITHELIAL CELLS (test per HPF Few code = EPIU) UA BACTERIA (test code = per HPF NONE BACU) SPECIMEN COMMENTS: REFLEX TO CULTUREUrine Source? Voided- XR CHEST 2 [id number] 10:40:00 FAX: Antelmo Armando MD [phone] [place]: O St: PRE Name: G[facility] : 2000 Age/S: 18/F [address] Unit#: [id number] [facility] [place] [address] Phys: Antelmo Richardson MD Acct: [id number] Dis Date: Status: PRE SDC PHONE #: [phone] Exam Date: 06/04/2019 1000 FAX #: [phone] Reason: PRE OP EXAMS: CPT CODE: [id number] XR CHEST 2 V [id number] REASON FOR EXAM: PRE OP Exam Order Date:06/04/2019 9:44 AM Ordering Cherrie: Antelmo Richardson MD PROCEDURE: - XR KATERYNA ST 2 V COMPARISON: None FINDINGS: The lungs are clear. There isno pleural effusion or pneumothorax. Pulmonary vascularity is within normal limits. Cardiomediastinal silhouette is normal in size for technique. The mediastinal contours are within normal limits. Musculoskeletal structures are within normal limits. The visualized upper abdomen is within normal limits. IMPRESSION: No acute cardiopulmonary process. Location: [facility] at 1040 Reported and signed by: Vikas Callaway MD CC: Antelmo Richardson MD Technologist: RT MAGDALENA(R) Trnscrd Date/Time/By: 06/04/2019 (1040) : By: [email or web address] Orig Print D/T: S: 06/04/2019 (7512) PAGE 1 Signed Report
[2021-01-20] MEDS ORDERED: Ringers Lactate 1,000 ML IV SCH (08:00)
[2021-01-20] MEDS ORDERED: OXYTOCIN/LR 20 UNIT/1,000 ML BAG IV SCH ×2 (08:00→16:00)
[2021-01-20] MEDS ORDERED: PENICILLIN 5 MU in NA CHLORIDE 0.9% 100 ML IV ONE (08:05)
[2021-01-20 08:44] LABS: Absolute Lymphocytes (CBC) 1.7 K/uL (0.7-4.9); Basophils % 0.5 % (0-1.3); Hematocrit 33.6 % (36.0-45.0); Lymphocytes % 10.8 % (15.3-44.8); MPV 9.8 fL (7.6-11.3); RBC Red Blood Cell Count 3.89 M/uL (3.86-4.86)
[2021-01-20 09:02] VITALS: BMI 38.6
[2021-01-20] MEDS ORDERED: ROPIVACAINE HCL 0.2% 20ML AMP IV ONE (09:08)
[2021-01-20] MEDS ORDERED: FENTANYL CITR 100 MCG/2 ML IV ONE (09:08)
[2021-01-20] MEDS ORDERED: BUPIVACAINE 0.25% PF 10 ML VIAL IJ PRN (09:08)
[2021-01-20] MEDS ORDERED: 0.2% ROPIVACAINE (200 MG/100 ML) BAG EP ONE (09:09)
--- NOTE | 2021-01-20 12:41 | PREOPHP ---
Date of Admission: 01/20/2021 History Of Present Illness: A 20-year-old primigravida 38 weeks and 6 days, scheduled for induction tomorrow, came in with spontaneous rupture of membranes, clear fluid, and in early labor. She is now on Pitocin. She is Strep positive, has been given her first dose of penicillin. She has progressed to 5 cm to 5.5 cm, 90% effaced, vertex is at 0 station, but is straight occiput posterior. She will start doing pelvic rocks as soon as she feels more comfortable. Dr. Solo is here to do her epidural . talk given. Family History: Noncontributory. Past Medical History: No serious illnesses. Allergies: NO ALLERGIES. Medications: No medications prior to admission other than vitamins and iron. Social History: Does not smoke. Physical Examination: HEENT: Clear. Pupils equal, round, and reactive to light and accommodation. Conjunctivae well perf used. No oral, lingual, or buccal lesions. Chest: Lungs are clear. Heart: Without murmurs, thrills, heaves, or rubs. Breasts: Without masses. Abdomen: Term size. Extremities: Clear without edema, cyanosis, or clubbing. Pelvic: As stated 5.5 cm and 90% effaced, -1 to 0 station, but occiput posterior. Hopefully, the epidural will not keep the baby in that position. We will start pelvic rocking as iron n as she is more comfortable. The patient is Rh positive, immune to rubella, negative COVID. STACY/RUSTY Voice ID: [id number]
[2021-01-20] MEDS ORDERED: PENICILLIN 2.5 MU in NA CHLORIDE 0.9% 100 ML IV SCH (13:00)
[2021-01-20] MEDS ORDERED: LIDOCAINE 1% MPF 30 ML VIAL ONE (13:38)
[2021-01-20] MEDS ORDERED: DOCUSATE NA/SENNA CONC 1 TAB PO PRN (15:53)
[2021-01-20] MEDS ORDERED: ACETAMINOPHEN 500 MG TAB PO PRN (15:53)
[2021-01-20] MEDS ORDERED: BISACODYL 10 MG RECTAL SUPP PR PRN (15:53)
[2021-01-20] MEDS ORDERED: DIPHENHYDRAMINE 25 MG TAB/CAP PO PRN (15:53)
[2021-01-20] MEDS ORDERED: METHYLERGONOVINE 0.2 MG TAB PO PRN (15:53)
[2021-01-20] MEDS ORDERED: Oxycodone HCl/Acetaminophen 1 TAB TAB PO PRN ×2 (15:53)
--- NOTE | 2021-01-20 16:29 | OP ---
Surgeon: Floyd Peraza MD Procedure In Detail: A 20-year-old, primigravida, 38 weeks and 6 days, came in with ruptured of membranes, early labor, 4 cm on admission. Rh positive, immune to rubella, negative COVID, positive strep. During the labor, received 2 doses of penicillin for prophylaxis. At approximately 5 cm, requested and received epidural anesthesia, which gave good effect. Went to complete second stage of approximately 30 minutes. Spontaneous vaginal delivery of a 6-pound and 9-ounce male , Apgars 9 and 9. Small first-degree laceration just on the right side of the introitus, sutured with 2-0 chromic, 1 araikl-ws-wuvtz stitch on the right side of the introitus on the labia minora. Other abrasions noted, but no other lacerations. Schultze delivery of the placenta. Estimated blood loss 300 cc or less. The patient tolerated all procedures well. Final Diagnoses: Term intrauterine at 38 weeks and 6 days, spontaneous rupture of membranes, labor augmentation, penicillin prophylaxis, epidural anesthesia, vaginal delivery at 38 weeks and 6 days. STACY/RUSTY Voice ID: [id number] Report ID: [id number] DORA
[2021-01-20] MEDS: IBUPROFEN 600 MG TAB PO PRN (16:39)
[2021-01-21] MEDS: IBUPROFEN 600 MG TAB PO PRN ×2 (04:33→15:50)
--- NOTE | 2021-01-21 08:02 | DS ---
Hospital Course: 20-year-old primigravida, 38 weeks 6 days, came in active labor with rupture of mem branes, clear fluid, 4 cm on admission, started on light Pitocin augmentation and penicillin prophyla xis. Received 2 penicillin doses during labor. Received epidural anesthesia, at approximately 5-6 c m, which worked very well. Second stage of about 30 minutes. Spontaneous vaginal delivery of a 6 po unds 9 ounces male infant, Apgars 9 and 9. Small first-degree laceration, repaired with 2-0 chromic and a single cwrsmj-ch-cryqa stitch for a second small laceration first degree. Schultze delivery of the placenta was inspected and noted to be intact and normal. Less than 300 cc blood loss. Postpar augie; afebrile, ambulating, lochia is normal. No complaints or problems. Full dismissal instructions . She has had her Tdap shot and her flu shot. COVID immunizations discussed. She is Rh positive, r ubella immune. Negative COVID. Requests no analgesics on dismissal. Final Diagnoses: Intrauterine gestation, 38 weeks 6 days, spontaneous labor, spontaneous rupture of membranes. Epidural anesthesia. Penicillin prophylaxis. STACY/ISHANL Voice ID: [id number] Report ID: [id number]
[2021-01-21 18:37] VITALS: BP 118/68; TEMP 97.8
[2021-01-21 21:07] LABS: RPR (Rapid Plasma Reagin) NON-REACT (NON-REACT)
[2021-01-26 18:50] LABS: HBsAG Nonreactive (Nonreactive)
== END 2021-01-21 18:15 | disposition home or self-care (01) | DRG 807 ==
LOC: 2ND-WC 07:52 → EDSTATUS 01-21 07:51
PROVIDERS: ADMIT Specialist; ATTEND Specialist
PROC: 0KQM0ZZ Repair Perineum Muscle, Open Approach (ICD-10-PCS; principal; 2021-01-20)
PROC: 10E0XZZ Delivery of Products of Conception, External Approach (ICD-10-PCS; 2021-01-20)
DX: O70.1 Second degree perineal laceration during delivery (principal); Z37.0 Single live birth; O99.824 Streptococcus B carrier state complicating childbirth; Z3A.38 38 weeks gestation of pregnancy; Z20.822 Contact with and (suspected) exposure to COVID-19
CPT/HCPCS: 36415; 85025; 86592; 86901; 87340; J0595; J2210; J2540; J2550; J2590; J2795; J3010; J7120; U0002

== ENCOUNTER 2024-03-16 12:57 | Emergency (ER) | payer OTHER ==
--- OUTSIDE RECORDS SUMMARY | 2024-03-16 13:02 | XMS REPORT | Continuity of Care Document ---
Author Name Unknown Address [address] [facility] Jason. [address] [place] [address] [facility] Address [address] [facility]. [address] [place] [address] Care Team Providers Care Budget Clerk Name Role Phone GINO BROWNE Primary Care Physician Hollis ilGino Ashby Attending Clinician Antelmo Pierson Attending Clinician Unavailable SUNSHINE LEON Attending Clinician Unavailable SUNSHINE LEON Attending Clinician Unavailable Sunshine Leon MD Attending Clinician [phone] JEANNETTE SHIRLEY Attending Clinician Unavailable Jeannette Shirley MD Attending Clinician [phone] [email or web address]_S Attending Clinician UnavailGRACE Cedeno Attending Clinician Unavailable Grace Miller NP Attending Clinician [phone] Nurse, [facility] Attending Clinician Un available Darcy Rodriguez Attending Clinician [phone] DARCY BROWN Attending Clinician Unavailable Doctor Unassigned, [place] Attending Clinician MITCHEL Evans Renetta Attending Clinician Unavailable Ciara Whyte Attending Clinician + [phone] Unknown, Attending Attending Clinician Unavailab CIARA Alcantara Attending Clinician Unavailab AMBER Young Attending Clinician Unavailable Amber Gordillo MD Attending Clinician [phone] Kari Coon RN Attending Clinician + [phone] NIKOLAS HILL Attending Clinician Unavailable Quang Wade MD Attending Clinician [phone] Nikolas Hill DO Attending Clinician [phone] EBER MORA Attending Clinician Unavailable Eber Mora MD Attending Clinician [phone] LOUISE RANDOLPH Attending Clinician Unavailable James Brown DO Attending Clinician [phone] Louise Randolph MD Attending Clinician [phone], [facility] Attending Clinician Unavailable Gino Browne Admitting Clinician SUNSHINE [place] Admitting Clinician Unavailable EBER MORA Admitting Clinician Unavailable Physician, No Primary or Family Admitting Clinic Sunshine Del Toro MD Admitting Clinician [phone] JEANNETTE SHIRLEY Admitting Clinician Unavailable [email or web address]_S Admitting Clinician UnavailGRACE Cedeno Admitting Clinician Unavailable NIKOLAS HILL Admitting Clinician Unavailable Nikolas Hill DO Admitting Clinician [phone] Eber Mora MD Admitting Clinician [phone] Payers Payer Name Policy Type Policy Number Effective Date Expirati on Date Source [employer] [id number] 2018 00:00:00 [facility] [id number] 2020 00:00:00 Problems Condition Name Condition Details Condition Category Status Onset Date Resolution Date Last Treatment Date Treating Clinician Comments Source Acute biliary pancreatit is, unspecifie d complicati on status Acute biliary pancreatit is, unspecifie d complicati on status Disease Active 2020-02 00:00: 00 [facility] Severe acute pancreatit is Severe acute pancreatit is Disease Active 2020-02 00:00: 00 [facility] 35 weeks gestation of 35 weeks gestation of Disease Active 2020-02 00:00: 00 [facility] Gall bladder stones Gall bladder stones Disease Active 2020-02 00:00: 00 [facility] Obesity (BMI 30-39.9) Obesity (BMI 30-39.9) Disease Active 7-15 00:00: 00 [facility] Morbid obesity with body mass index of 40.0-49.9 Morbid obesity with body mass index of 40.0-49.9 Disease Resolve d 609 00:00: 00 2020-12-31 00:00:00 2020-12-31 09:44:52 [facility] Allergies, Adverse Reactions, Alerts Allergy Name Allergy Type Status Severity Reaction(s) Onset Date Inactive Date Treating Clinician Comments Source No Known Allergie s DA Active U 2023-02 00:00: 00 [facility] No Known Allergie s DA Active U 06-03 00:00: 00 [facility] No Known Allergie s DA Active U 06-03 00:00: 00 [facility] NO KNOWN ALLERGIE S Drug Class Active [facility] Social History Social Habit Start Date Stop Date Quantity Comments Source ASSERTION 2023-04-26 00:00:00 [facility] Alcoholic beverage intake 2023-10-26 00:00:00 2023-10-26 00:00:00 Ex-drinker (finding) [facility] Exposure to SARS-CoV-2 (event) 2022-03-29 00:00:00 2022-04-08 11:13:00 Not sure [facility] Alcohol intake 2022-04-08 00:00:00 2022-04-08 00:00:00 Ex-drinker (finding) [facility] Tobacco use and exposure 2021-12-08 00:00:00 2021-12-08 00:00:00 Smokeless tobacco non-user [facility] History of Social function 2021-02-22 00:00:00 2021-02-22 00:00:00 [facility] Education 2021-02-02 00:00:00 2021-02-02 00:00:00 21 [facility] Sex assigned at 1999 00:00:00 2000 00:00:00 [facility] Smoking Status Start Date Stop Date Source Never smoked tobacco [facility] Medications Ordered Medication Name Filled Medication Name Start Date Stop Date Current Medication? Ordering Clinician Indication Dosage Frequency Signature (SIG) Comments Components Source no115/iron/ folic acid ( 19 ORAL) 10-26 00:37: 06 Yes 1{tbl} Take 1 tablet by mouth in the morning. [facility] iopamidol (ISOVUE 370-500 mL) injection 100 mL 04-08 20:30: 00 04-08 20:30 :00 No [id number] 100mL 100 mL, Intravenou s, ONCE, 1 dose, On 04/08/22 at 1430, Routine [facility] ketorolac (TORADOL) injection 30 mg 04-08 19:30: 00 04-08 18:29 :00 No 30mg 30 mg, Slow IV Push, ONCE, 1 dose, On 04/08/22 at 1330, Routine [facility] ketorolac 10 mg tablet 04-08 00:00: 00 Yes [id number] 10mg Take 1 tablet by mouth every 6 (six) hours as needed for Pain (scale 4-6) or Pain (scale 1-3). [facility] famotidine 40 mg tablet 04-08 00:00: 00 04-23 04:59 :00 No [id number] 40mg Take 1 tablet by mouth at bedtime for 14 days. [facility] oseltamivir (TAMIFLU) 75 mg capsule 2022-1 1-03 00:00: 00 12-14 05:59 :00 No [id number] 75mg Take 1 capsule by mouth in the morning and 1 capsule in the evening. Do all this for 5 days. [facility] No known medications 02-22 15:34: 24 No [facility] ondansetron (ZOFRAN ODT) 4 mg disintegrat ing tablet 02-05 00:00: 00 Yes [id number] 8mg Take 2 tablets by mouth every 8 (eight) hours as needed for Nausea and Vomiting (N/V). [facility] Immunizations Ordered Immunization Name Filled Immunization Name Date Status Comments Source SARS-COV-2 COVID-19 PFIZER VACCINE 2021-02-05 00:00:00 Completed [facility] SARS-COV-2 COVID-19 PFIZER VACCINE 2021-02-05 00:00:00 Completed [facility] SARS-COV-2 COVID-19 PFIZER VACCINE 2021-02-05 00:00:00 Completed [facility] SARS-COV-2 COVID-19 PFIZER VACCINE 2021-02-05 00:00:00 Completed [facility] SARS-COV-2 COVID-19 PFIZER VACCINE 2021-02-05 00:00:00 Completed [facility] SARS-COV-2 COVID-19 PFIZER VACCINE 2021-02-05 00:00:00 Completed [facility] SARS-COV-2 COVID-19 PFIZER VACCINE 2021-02-05 00:00:00 Completed [facility] SARS-COV-2 COVID-19 PFIZER VACCINE Unknown Completed [facility] SARS-COV-2 COVID-19 PFIZER VACCINE Unknown Completed [facility] SARS-COV-2 COVID-19 PFIZER VACCINE Unknown Completed [facility] Vital Signs Vital Name Observation Time Observation Value Comments S ource Systolic blood pressure 2023-10-27 05:00:00 118 mm[Hg] [facility] Diastolic blood pressure 2023-10-27 05:00:00 65 mm[Hg] [facility] Heart rate 2023-10-27 05:00:00 77 /min [facility] Respiratory rate 2023-10-27 05:00:00 17 /min [facility] Oxygen saturation in Arterial blood by Pulse oximetry 2023-10-27 05:00:00 98 /min [facility] Body temperature 2023-10-27 03:00:00 36.61 Wanda [facility] Body weight 2023-10-27 02:49:00 111.585 kg [facility] BMI 2023-10-27 02:49:00 43.58 kg/m2 [facility] Systolic blood pressure 2023-05-17 13:10:00 169 mm[Hg] [facility] Diastolic blood pressure 2023-05-17 13:10:00 100 mm[Hg] [facility] Heart rate 2023-05-17 13:10:00 81 /min Un[facility] Body temperature 2023-05-17 13:10:00 37.33 Wanda [facility] Respiratory rate 2023-05-17 13:10:00 22 /min [facility] Body height 2023-05-17 13:10:00 160 cm [facility] Body weight 2023-05-17 13:10:00 111.358 kg [facility] BMI 2023-05-17 13:10:00 43.49 kg/m2 [facility] Oxygen saturation in Arterial blood by Pulse oximetry 2023-05-17 13:10:00 100 /min [facility] Systolic blood pressure 2022-04-08 20:00:00 101 mm[Hg] [facility] Diastolic blood pressure 2022-04-08 20:00:00 74 mm[Hg] [facility] Heart rate 2022-04-08 20:00:00 69 /min Un[facility] Respiratory rate 2022-04-08 20:00:00 16 /min [facility] Oxygen saturation in Arterial blood by Pulse oximetry 2022-04-08 20:00:00 99 /min [facility] Body temperature 2022-04-08 17:48:00 36.67 Wanda [facility] Body weight 2022-04-08 17:48:00 99.791 kg [facility] BMI 2022-04-08 17:48:00 38.97 kg/m2 [facility] Systolic blood pressure 2022-04-08 17:23:00 120 mm[Hg] [facility] Diastolic blood pressure 2022-04-08 17:23:00 83 mm[Hg] [facility] Heart rate 2022-04-08 17:23:00 77 /min [facility] Body temperature 2022-04-08 17:23:00 37 Wanda [facility] Respiratory rate 2022-04-08 17:23:00 16 /min [facility] Body weight 2022-04-08 17:23:00 99.791 kg [facility] BMI 2022-04-08 17:23:00 38.97 kg/m2 [facility] Oxygen saturation in Arterial blood by Pulse oximetry 2022-04-08 17:23:00 99 /min [facility] Systolic blood pressure 2021-12-08 15:29:00 121 mm[Hg] [facility] Diastolic blood pressure 2021-12-08 15:29:00 83 mm[Hg] [facility] Heart rate 2021-12-08 15:29:00 85 /min [facility] Body temperature 2021-12-08 15:29:00 37.11 Wanda [facility] Respiratory rate 2021-12-08 15:29:00 16 /min [facility] Body height 2021-12-08 15:29:00 160 cm [facility] Body weight 2021-12-08 15:29:00 100.245 kg [facility] BMI 2021-12-08 15:29:00 39.15 kg/m2 [facility] Oxygen saturation in Arterial blood by Pulse oximetry 2021-12-08 15:29:00 97 /min [facility] Systolic blood pressure 2021-02-22 21:33:00 103 mm[Hg] [facility] Diastolic blood pressure 2021-02-22 21:33:00 68 mm[Hg] [facility] Heart rate 2021-02-22 21:33:00 71 /min [facility] Body temperature 2021-02-22 21:33:00 36.28 Wanda [facility] Respiratory rate 2021-02-22 21:33:00 18 /min [facility] Body height 2021-02-22 21:33:00 160 cm [facility] Body weight 2021-02-22 21:33:00 95.165 kg [facility] BMI 2021-02-22 21:33:00 37.16 kg/m2 [facility] Oxygen saturation in Arterial blood by Pulse oximetry 2021-02-22 21:33:00 99 /min [place] [facility] Procedures Procedure Date / Time Performed Performing Clinician Source DELIVERY OF PRODUCTS OF CONCEPTION, EXTERNAL APPRO 2024-01-08 00:00:00 HARAD.01 [facility] FIRST TRIMESTER LESS THAN 14 WEEKS WITH TRANSVAGINAL 2023-05-17 16:21:53 Jeannette Shirley [facility] ABORH CONFIRMATION (LAB ONLY) 2023-05-17 14:48:00 Jeannette Shirley [facility] POCT TEST 2023-05-17 14:04:00 Germaine Shirley [facility] COMP. METABOLIC PANEL (46095) 2023-05-17 14:00:00 Jeannette Shirley [facility] TOTAL BETA HCG ASSAY 2023-05-17 14:00:00 Anibal Shirley [facility] CBC WITH DIFF 2023-05-17 14:00:00 Jeannette Shirley [facility] URINALYSIS 2023-05-17 14:00:[address] [facility] HB ABO GROUPING 2023-05-17 14:00:00 [facility] L[facility] 2022-04-08 18:23:00 Grace Miller [facility] TROPONIN I 2022-04-08 18:23:00 Grace Miller [facility] COMP. METABOLIC PANEL (65649) 2022-04-08 18:23:00 Grace Miller [facility] CBC WITH DIFF 2022-04-08 18:23:00 Drever, Grace G [facility] D-DIMER 2022-04-08 18:23:00 Grace Miller [facility] POCT TEST 2022-04-08 18:23:00 Grace Miller [facility] COVID-19 (ID NOW RAPID TESTING) 2022-04-08 18:23:00 Grace Miller [facility] CONSENT/REFUSAL FOR DIAGNOSIS AND TREATMENT 2022-04-08 17:38:12 Doctor Unassigned, [place] [facility] ASSIGNMENT OF BENEFITS 2022-04-08 17:14:32 Docto r Unassigned, [place] [facility] CONSENT/REFUSAL FOR DIAGNOSIS AND TREATMENT 2021-12-09 00:40:55 Doctor Unassigned, [place] [facility] POCT MOLECULAR FLU 2021-12-08 16:01:00 Unknown, Attend ing [facility] POCT MOLECULAR STREP 2021-12-08 15:27:00 Unknown, Atte sonja [facility] AUTHORIZATION FOR RELEASE OF PHI 2021-01-11 06:01:00 Doctor Unassigned, [place] [facility] [id number] 2019-07-29 00:00:00 [facility] Encounters Start Date/Time End Date/Time Encounter Type Admission Type Attending [facility] Care Facility Care Department Encounter ID Source 2024-01-06 09:30:00 Inpatient Gino Gaming [facility] OBOP [id number] [facility] 2023-10-27 00:37:20 Outpatient P IAMB OVIDIO [id number] [facility] 2020-12-30 17:36:03 Outpatient P [facility] OVIDIO [id number] [facility] 2019-07-29 07:30:00 Inpatient Antelmo Richardson [facility]AB[facility] DAYS [id number] [facility] 2019-06-09 11:00:00 Inpatient Antelmo Richardson [facility] DAYS [id number] [facility] 2024-01-07 17:26:00 2024-01-09 17:10:00 Inpatient Gino Avitia [facility] OBPP [id number] [facility] 2023-12-31 10:09:00 2024-01-05 00:00:00 Outpatient Gino Gaming [facility] OBOP [id number] [facility] 2023-12-28 13:00:00 2023-12-28 13:00:00 Outpatient Gino Gaming OBOP [id number] [facility] 2023-12-14 09:47:00 2023-12-14 09:47:00 Outpatient Gino Gaming [facility] RADI [id number] [facility] 2023-11-28 22:24:00 2023-11-28 23:47:00 Emergency Gino Avitia LOVE [id number] [facility] 2023-11-02 13:25:00 2023-11-05 00:00:00 Outpatient Gino Gaming [facility] OBOP [id number] [facility] 2023-10-26 21:52:00 2023-10-27 00:10:00 Outpatient P SUNSHINE LEON VIEN [facility] OVIDIO [id number] [facility] 2023-10-26 21:52:00 2023-10-27 00:10:00 Hospital Encounter Sunshine Leon [facility] 1.2.840.114 350.1.13.10 4.2.7.2.686 [id number] [facility] 2023-08-31 08:22:00 2023-08-31 08:22:00 Outpatient Gino Gaming [facility] RADI [id number] [facility] 2023-05-17 08:12:00 2023-05-17 12:16:00 Emergency X JEANNETTE SHIRLEY [facility] ERT [id number] [facility] 2023-05-17 08:12:00 2023-05-17 12:16:00 Emergency Jeannette Shirley [facility] 1.2.840.114 350.1.13.10 4.2.7.2.686 [id number] [facility] 2022-12-06 00:00:00 2022-12-06 00:00:00 Outpatient GC_GCBZW_Ka diyala_S [facility] [id number] [facility] 2022-04-08 11:53:00 2022-04-08 14:21:00 Emergency X GRACE MILLER [facility] ERT [id number] [facility] 2022-04-08 11:53:00 2022-04-08 14:21:00 Emergency Grace Miller [facility] 1.2.840.114 350.1.13.10 4.2.7.2.686 [id number] [facility] 2022-04-08 11:15:00 2022-04-08 11:35:00 Nurse Visit Nurse, [facility] Kaur [facility]?ALIYAH [facility] 1..840.114 350.1.13.10 4.2.7.2.686 [id number] [facility] 2022-04-08 11:15:00 2022-04-08 11:15:00 Outpatient Francheska [facility] [id number] [facility] 2022-04-08 00:00:00 2022-04-08 00:00:00 Orders Only Doctor Unassigned, [place] [facility] 1..840.114 350.1.13.10 4.2.7.2.686 [id number] [facility] 2021-12-08 19:41:00 2021-12-08 19:41:00 Emergency X PAT MITCHEL [facility] ERT [id number] [facility] 2021-12-08 10:20:2021-12-08 10:40:00 Urgent Care Kelli Nascimentoallison Sweeney Unknown, Attending [facility] 1..840.114 350.1.13.10 4.2.7.2.686 [id number] [facility] 2021-12-08 10:20:00 2021-12-08 10:20:00 Outpatient R SHARIFA CIARA [facility] [id number] [facility] 2021-12-08 00:00:00 2021-12-08 00:00:00 Letter (Out) Sharifa Ciara Sweeney [facility] 1..840.114 350.1.13.10 4.2.7.2.686 [id number] [facility] 2021-12-08 00:00:00 2021-12-08 00:00:00 Orders Only Doctor Unassigned, [place] [facility] 1.2840.114 350.1.13.10 4.2.7.2.686 [id number] [facility] 2021-02-22 16:30:00 2021-02-22 16:41:12 Outpatient R GUERA AMBER [facility] [id number] [facility] 2021-02-22 16:30:00 2021-02-22 16:41:12 Office Visit [facility] 1..840.114 350.1.13.10 4.2.7.2.686 [id number] [facility] 2021-02-22 00:00:00 2021-02-22 00:00:00 Orders Only Doctor Unassigned, [place] [facility] 1.2.840.114 350.1.13.10 4.2.7.2.686 [id number] [facility] 2021-02-07 00:00:00 2021-02-07 00:00:00 Transition of Care Kari Coon 1..114 350.1.13.10 4.2.7.2.686 [id number] [facility] 2021-02-07 00:00:00 2021-02-07 00:00:00 Patient Secure Msg Doctor Unassigned, [place] [facility] 1..114 350.1.13.10 4.2.7.2.686 [id number] [facility] 2021-02-02 00:42:00 2021-02-05 11:50:00 Inpatient NIKOLAS CARLSON [facility] [id number] [facility] 2021-02-02 00:42:00 2021-02-05 11:50:00 Hospital Encounter Jeannette Shirley Jelani Morris, David [facility] 1..114 350.1.13.10 4.2.7.2.686 [id number] [facility] 2021-02-02 00:42:00 2021-02-05 11:50:00 Inpatient César NIKOLAS HILL [facility] CALLY [id number] [facility] 2021-01-11 00:00:00 2021-01-11 00:00:00 Orders Only Doctor Unassigned, [place] [facility] 1.114 350.1.13.10 4.2.7.2.686 [id number] [facility] 2020-12-29 04:21:00 2020-12-30 17:00:00 Outpatient P EBER MORA [facility] OVIDIO [id number] [facility] 2020-12-29 04:21:00 2020-12-30 17:00:00 Hospital Encounter Eber Mora [facility] 1..114 350.1.13.10 4.2.7.2.686 [id number] [facility] 2020-07-23 13:00:00 2020-07-23 13:00:00 Outpatient R MANISH LOUISE [facility] [id number] [facility] 2020-04-27 00:00:00 2020-04-27 00:00:00 Patient Outreach KevinJames [facility] 1.2.840.114 350.1.13.10 4.2.7.2.686 [id number] [facility] 2019-11-21 09:00:00 2019-11-21 09:00:00 Outpatient R MANISH LOUISE [facility] [id number] [facility] 2019-09-05 00:00:00 2019-09-05 00:00:00 Refill AdLouise edmond [facility] 1.2.840.114 350.1.13.10 4.2.7.2.686 [id number] [facility] 2019-08-20 14:31:24 2019-08-20 14:46:24 Form Tamper Visit 2, Adc Lab AdLouise edmond [facility] 1.2.840.114 350.1.13.10 4.2.7.2.686 [id number] [facility] 2019-08-20 13:06:07 2019-08-20 14:20:18 Office Visit AdLouise edmond [facility] 1.2.840.114 350.1.13.10 4.2.7.2.686 [id number] [facility] 2019-08-20 13:00:00 2019-08-20 13:00:00 Outpatient R MANISH [facility] [id number] [facility] 2019-08-20 00:00:00 2019-08-20 00:00:00 Orders Only Doctor Unassigned, [place] [facility] 1.2.840.114 350.1.13.10 4.2.7.2.686 [id number] [facility] 2019-07-24 13:53:00 2019-07-24 13:53:00 Outpatient Antelmo Richardson HCACL LABO [id number] [facility] 2019-07-22 13:05:27 2019-07-22 14:26:35 Office Visit Adum, Louise [facility] Building 1.2.840.114 350.1.13.10 4.2.7.2.686 [id number] 2019-07-22 13:05:27 2019-07-22 14:26:35 Office Visit Adum, Louise [facility] 1.2.840.114 350.1.13.10 4.2.7.2.686 [id number] [facility] 2019-07-22 13:00:00 2019-07-22 13:00:00 Outpatient R LOUISE RANDOLPH [facility] [id number] [facility] 2019-07-18 10:38:49 2019-07-18 10:53:49 Form Tamper Visit 2, Adc Lab AdumLouise [facility] 1.2.840.114 350.1.13.10 4.2.7.2.686 [id number] [facility] [id number] [facility] 2019-07-18 10:45:00 2019-07-18 10:45:00 Outpatient R [facility] [id number] [facility] 2019-07-15 15:00:00 2019-07-15 15:00:00 Outpatient R LOUISE RANDOLPH [facility] [id number] [facility] 2019-06-04 17:57:00 2019-06-04 17:57:00 Outpatient Antelmo Richardson [facility]AC[facility] LABO [id number] [facility] Results Test Description Test Time Test Comments Results Result Co mments Source AG HEPATITIS B [id number] 20:21:00* Test Item Value Reference Range Interpretation Comme nts AG HEPATITIS B SURFACE (test code = HBSAG) NON REACTIVE NONREACTIVE AB HEPATITIS C [id number] 20:21:00* Test Item Value Reference Range Interpretation Comme nts AB HEPATITIS C (test code = HCVAB) NONREACTIVE NONREACTIVE SIGNAL TO CUTOFF (test code = CUTOFF) 0.08 <0.80 N AB [id number] 20:21:00* Test Item Value Reference Range Interpretation Comme nts AB TREPONEMA (test code = TREPAB) NONREACTIVE NONREACTIVE AB HIV 1 20:21:00* Test Item Value Reference Range Interpretation Comme nts AB HIV 1 2 (test code = KTA81VF) NONREACTIVE NONREACTIVE Done by [employer] 4th Gen HIV Ag/Ab Combo Screen CBC W/AUTO [id number] 17:59:00* Test Item Value Reference Range Interpretation Comme nts WHITE BLOOD CELL (test code = WBC) 11.0 K/mm3 6.5-12.3 N RED BLOOD CELL (test code = RBC) 4.04 M/mm3 3.51-4.69 N HEMOGLOBIN (test code = HGB) 11.5 g/dL 10.1-13.8 N HEMATOCRIT (test code = HCT) 35.6 % 32.5-41.8 N MEAN CELL VOLUME (test code = MCV) 88.1 fL 84.6-96.6 N MEAN CELL HGB (test code = MCH) 28.5 pg 27.3-33.9 N MEAN CELL HGB CONCETRATION ( test code = MCHC) 32.3 gm/dL 32.0-34.2 N RED CELL DISTRIBUTION WIDTH (test code = RDW) 18.7 % 12.2-16.3 H PLATELET COUNT (test code = PLT) 323 K/mm3 134-363 N MEAN PLATELET VOLUME (test c ode = MPV) 10.3 fL 9.2-12.7 N NEUTROPHIL % (test code = NT%) 76.4 % 57.9-77.3 N LYMPHOCYTE % (test code = LY%) 13.2 % 14.5-29.7 L MONOCYTE % (test code = MO%) 6.6 % 3.6-10.2 N EOSINOPHIL % (test code = EO%) 1.3 % 0.0-3.0 N BASOPHIL % (test code = BA%) 0.4 % 0.1-0.9 N NEUTROPHIL # (test code = NT#) 8.4 K/mm3 LYMPHOCYTE # (test code = LY#) 1.5 K/mm3 MONOCYTE # (test code = MO#) 0.7 K/mm3 EOSINOPHIL # (test code = EO#) 0.14 K/mm3 BASOPHIL # (test code = BA#) 0.0 K/mm3 RUPTURE OF [id number] 17:10:00* Test Item Value Reference Range Interpretation Comme nts RUPTURE OF MEMBRANES (test c ode = ROM) RUPTURED URINALYSIS [id number] 23:37:00* Test Item Value Reference Range Interpretation Comme nts UA COLOR (test code = COLU) YELLOW YELLOW UA APPEARANCE (test code = APPU) CLEAR CLEAR UA GLUCOSE DIPSTICK (test co de = DGLUU) NEGATIVE NEG UA BILIRUBIN DIPSTICK (test code = BILU) NEGATIVE NEG UA KETONE DIPSTICK (test cod e = KETU) NEGATIVE NEG UA SPECIFIC GRAVITY (test co de = SGU) >= 1.030 1.001-1.035 N UA BLOOD DIPSTICK (test code = DEMETRIUS) NEG NEG UA PH DIPSTICK (test code = ZENON) 5.0 5-9 UA PROTEIN DIPSTICK (test co de = PROU) 1+ NEG A UA UROBILINIOGEN DIPSTICK (t est code = URO) 2.0 mg/dL NEG UA NITRITE DIPSTICK (test co de = CAITLIN) NEG NEG UA LEUKOCYTE ESTERASE DIPSTI CK (test code = LEUU) NEG NEG UA WBC (test code = WBCU) 3-5 #/hpf NONE SEEN A UA RBC (test code = RBCU) 0-2 #/hpf NONE SEEN UA EPITHELIAL CELLS (test co de = EPIU) FEW #/HPF RARE-FEW UA BACTERIA (test code = BACU) RARE /HPF RARE-FEW UA MUCUS (test code = MUCU) 1+ NONE SEEN URINE SAMPLE: CLEAN CATCHUS FIRST TRIMESTER LESS THAN 14 WEEKS WITH [id number] 16:27:52HISTORY: ?Rule out ectopic. TECHNIQUE: Both transabdominal and transvaginal pelvic ultrasound studieswere completed by the technologist. FINDINGS: Uterus is of normal size and shape, measures approxim ately 8.1 x4.6 x 5.1 cm in size with with retained fluid noted within the uterinecavity. In addition, intrauterine noted with mean gestational sacdiameter of 6.2 mm which corresponds to 5 weeks and 1 day size intrauterinepregnancy. Very faint yolk sac is visualized. No pole or cardiacactivity seen at this time. Small amount of subchorionic hemorrhage is seenalong the left lateral wall of the gestational sac in the sac appears to beslightly deformed. Small amount of free fluid inthe cul-de-sac. Right ovary is 3.5 x 2.3 x 3.4 cm ( 14.18 ml) and left ovary is 4.4 x 2.0 x2.4 cm (10.64 ml). Multiple follicles are present in both ovaries andright ovary contains 2 dominant cysts,each approximately measuring 2.4 cmand 1.8 cm in size. Left ovary also contains slightly irregular-shapeddominant cyst of 1.6 cm. CONCLUSIONS: 1. Less than 6 week size intrauterine with slightly deformedgestational sac, small subchorionic hemorrhage and retained fluid in theuterine cavity. Findings could be due to failed , however,monitoring by serial beta-hCG titers and, if necessary, with follow-uptransvaginal pelvic ultrasound study in 2 weeks recommended.2. Bilateral ovarian cysts and fluid in the cul-de-sac, consistent withphysiologic changes.[facility] Only[facility]2023-05-17 15:02:00* Test Item Value Reference Range Interpretation Comme nts ABO & RH (test code = 20) B Positive [facility] BHCG (QUANTITATIVE)2023-05-17 14:55:33* Test Item Value Reference Range Interpretation Comme nts BETA HCG (test code = 8155538951) 4504.90 See_Comment [Automated Pinchd] The system which generated this result transmitted reference range: Non- female and male patients: <5 mIU/mL. The reference range was not used to interpret this result as normal/abnormal. SATYA (test code = SATYA) Gestational Age ?Range (mIU/mL) 1-10 ?Weeks ?[id number] Weeks ?26019-91381160-40 Weeks ?8065-66442515-15 Weeks ?[id number] Biotin has been reported to cause a negative bias, interpret results relative to patient's use of biotin. [facility]. METABOLIC PANEL (51813)2023-05-17 14:38:17* Test Item Value Reference Range Interpretation Comme nts NA (test code = 6939640399) 138 mmol/L 135-145 K (test code = 4305455221) 3.8 mmol/L 3.5-5.0 CL (test code = 3997619812) 107 mmol/L 98-108 CO2 TOTAL (test code = 5366283455) 24 mmol/L 23-31 AGAP (test code = 8201471262) 7 2-16 BUN (test code = 2400724741) 7 mg/dL 7-23 GLUCOSE (test code = 6415919802) 98 mg/dL 70-110 CREATININE (test code = 2160-0) 0.66 mg/dL 0.50-1.04 TOTAL BILI (test code = 8986951546) 0.4 mg/dL 0.1-1.1 CALCIUM (test code = 8414905511) 9.1 mg/dL 8.6-10.6 T PROTEIN (test code = 4769595897) 7.5 g/dL 6.3-8.2 ALBUMIN (test code = 0571621491) 4.1 g/dL 3.5-5.0 ALK PHOS (test code = 6317929797) 66 U/L 34-122 ALTv (test code = 1742-6) 24 U/L 5-35 AST(SGOT) (test code = 1485614409) 33 U/L 13-40 eGFR (test code = 28656-9) 126.6 mL/min/1.73m2 CKD-EPI eGFR (20 21). Assuming creatinine has been stable day-to-day for at least three months, the eGFR indicates Category G1 (>= 90 mL/min/1.73 m2) [facility] WITH [id number] 14:22:50* Test Item Value Reference Range Interpretation Comme nts WBC (test code = 6690-2) 12.24 4.30-11.10 H RBC (test code = 789-8) 4.22 3.93-5.25 HGB (test code = 718-7) 11.4 g/dL 11.6-15.0 L HCT (test code = 4544-3) 35.4 % 35.7-45.2 L MCV (test code = 787-2) 83.9 fL 80.6-95.5 MCH (test code = 785-6) 27.0 pg 25.9-32.8 MCHC (test code = 786-4) 32.2 g/dL 31.6-35.1 RDW-SD (test code = 75735-7) 44.8 fL 39.0-49.9 RDW-CV (test code = 788-0) 14.8 % 12.0-15.5 PLT (test code = 777-3) 483 166-358 H MPV (test code = 21793-3) 10.2 fL 9.5-12.9 NRBC/100 WBC (test code = 1665861955) 0.0 0.0-10.0 NRBC x10^3 (test code = 3866367104) See_Comment [Automated messa ge] The system which generated this result transmitted reference range: 10*3/?L. The reference range was not used to interpret this result as normal/abnormal. GRAN MAT (NEUT) % (test code = 770-8) 77.1 % IMM GRAN % (test code = 7949836328) 0.50 % LYMPH % (test code = 736-9) 16.8 % MONO % (test code = 5905-5) 3.8 % EOS % (test code = 713-8) 1.1 % BASO % (test code = 706-2) 0.7 % GRAN MAT x10^3(ANC) (test code = 8118022373) 9.45 10*3/uL 1.88-7.09 H IMM GRAN x10^3 (test code = 9586033937) 0.06 10*3/uL 0.00-0.06 LYMPH x10^3 (test code = 731-0) 2.06 10*3/uL 1.32-3.29 MONO x10^3 (test code = 742-7) 0.46 10*3/uL 0.33-0.92 EOS x10^3 (test code = 711-2) 0.13 10*3/uL 0.03-0.39 BASO x10^3 (test code = 704-7) 0.08 10*3/uL 0.01-0.07 H Lab Interpretation (test code = 89250-6) Abnormal [facility] - ONCE [id number] 14:20:00 * Test Item Value Reference Range Interpretation Comme nts ABO & RH (test code = 20) B POSITIVE IAT (test code = 1185) Negative [facility] [id number] 14:04:00* Test Item Value Reference Range Interpretation Comme nts POCT PREG (test code = 1605) Positive On board controls acceptable with C Line (test code = 3574) Yes POCT PREG LOT # (test code = 3575) [id number] POCT PREG TEST DATE ( test code = 3576) 2024-03-14 Lab Interpretation (test cod e = 92810-6) Normal [facility]wallD-[id number] 19:01:00* Test Item Value Reference Range Interpretation Comments D-DIMER (test code = 6820737592) 0.51 See_Comment H [Automated message] The system which generated this result transmitted reference range: <0.41 ?g/mL (FEU). The reference range was not used to interpret this result as normal/abnormal. SATYA (test code = SATYA) This test may be used in conjunction with a clinical pretest probability (PTP) assessment model to exclude venous thromboembolism (VTE) in patients suspected of deep venous thrombosis (DVT) and pulmonary embolism (PE) A D-Dimer value less than 0.50 ?g/ml (FEU) has a negative predicative value of 96 to 100% (95% CI)and 97 to 100% (95% CI) as an aid in the diagnosis of deep vein thrombosis (DVT) and pulmonary embolism when there is low or moderate pretest probability of PE or DVT. D-Dimer values are expressed in initial fibrinogen equivalent units (FEU)" The assay results should be used with other information, including the clinical context, in forming a diagnosis. Lab Interpretation (test code = 51816-9) Abnormal [facility]wallTROPONIN [id number] 19:00:40* Test Item Value Reference Range Interpretation Comme nts TROPONIN I (test code = 0574958407) 0.004 ng/mL <=0.034 SATYA (test code = SATYA) Reference (Normal) Range (defined by the 99th percentile reference limit): <= 0.034 ng/mL Note: Cardiac troponin begins to rise 3-4 hours after the onset of ischemia. Repeat in 4-6 hours if the sample was drawn within 3-4 hours of the onset of the symptom and found normal. Diagnosis of myocardial injury is made with acute changes in cTn concentrations with at least one serial sample above the 99th percentile upper reference limit (URL), taken together with the patient's clinical presentation. Biotin has been reported to cause a negative bias, interpret results relative to patient's use of biotin. Lab Interpretation (test code = 91010-5) Normal [facility]. METABOLIC PANEL (21781)2022-04-08 18:49:38* Test Item Value Reference Range Interpretation Comme nts NA (test code = 7069768903) 140 mmol/L 135-145 K (test code = 7124553326) 4.5 mmol/L 3.5-5.0 CL (test code = 8151034746) 105 mmol/L 98-108 CO2 TOTAL (test code = 5567239979) 25 mmol/L 23-31 AGAP (test code = 2817912951) 10 2-16 BUN (test code = 4132488499) 9 mg/dL 7-23 GLUCOSE (test code = 6943370933) 62 mg/dL 70-110 L CREATININE (test code = 4333041065) 0.61 mg/dL 0.50-1.04 TOTAL BILI (test code = 3648995731) 0.5 mg/dL 0.1-1.1 CALCIUM (test code = 5550218603) 9.0 mg/dL 8.6-10.6 T PROTEIN (test code = 1338866241) 7.3 g/dL 6.3-8.2 ALBUMIN (test code = 8901844956) 4.2 g/dL 3.5-5.0 ALK PHOS (test code = 3669334576) 78 U/L 34-122 ALTv (test code = 1742-6) 21 U/L 5-35 AST(SGOT) (test code = 1014608447) 24 U/L 13-40 eGFR (test code = 0234980563) 122.6 mL/min/1.73m2 SATYA (test code = SATYA) Association of [...] or abnormalities in imaging tests). Lab Interpretation (test code = 73458-2) Abnormal [facility]ASE2023-[facility]-04 18:48:57* Test Item Value Reference Range Interpretation Comme nts LIPASE (test code = 6202723748) 58 U/L 0-220 Lab Interpretation (test cod e = 76454-8) Normal [facility]wall[facility] WITH [id number] 18:35:56* Test Item Value Reference Range Interpretation Comme nts WBC (test code = 6690-2) 11.66 See_Comment H [Automated messa ge] The system which generated this result transmitted reference range: 4.30 - 11.10 10*3/?L. The reference range was not used to interpret this result as normal/abnormal. RBC (test code = 789-8) 4.35 See_Comment [Automated messa ge] The system which generated this result transmitted reference range: 3.93 - 5.25 10*6/?L. The reference range was not used to interpret this result as normal/abnormal. HGB (test code = 718-7) 11.5 g/dL 11.6-15.0 L HCT (test code = 4544-3) 35.8 % 35.7-45.2 MCV (test code = 787-2) 82.3 fL 80.6-95.5 MCH (test code = 785-6) 26.4 pg 25.9-32.8 MCHC (test code = 786-4) 32.1 g/dL 31.6-35.1 RDW-SD (test code = 91354-7) 43.2 fL 39.0-49.9 RDW-CV (test code = 788-0) 14.5 % 12.0-15.5 PLT (test code = 777-3) 481 See_Comment H [Automated messa ge] The system which generated this result transmitted reference range: 166 - 358 10*3/?L. The reference range was not used to interpret this result as normal/abnormal. MPV (test code = 12111-4) 10.2 fL 9.5-12.9 NRBC/100 WBC (test code = 5721194783) 0.0 See_Comment [Automated [employer] ssage] The system which generated this result transmitted reference range: 0.0 - 10.0 /100 WBCs. The reference range was not used to interpret this result as normal/abnormal. NRBC x10^3 (test code = 5665565323) See_Comment [Automated messa ge] The system which generated this result transmitted reference range: 10*3/?L. The reference range was not used to interpret this result as normal/abnormal. GRAN MAT (NEUT) % (test code = 770-8) 66.4 % IMM GRAN % (test code = 1293524115) 0.60 % LYMPH % (test code = 736-9) 23.8 % MONO % (test code = 5905-5) 7.5 % EOS % (test code = 713-8) 1.2 % BASO % (test code = 706-2) 0.5 % GRAN MAT x10^3(ANC) (test code = 0050192116) 7.74 10*3/uL 1.88-7.09 H IMM GRAN x10^3 (test code = 8102103221) 0.07 10*3/uL 0.00-0.06 H LYMPH x10^3 (test code = 731-0) 2.77 10*3/uL 1.32-3.29 MONO x10^3 (test code = 742-7) 0.88 10*3/uL 0.33-0.92 EOS x10^3 (test code = 711-2) 0.14 10*3/uL 0.03-0.39 BASO x10^3 (test code = 704-7) 0.06 10*3/uL 0.01-0.07 Lab Interpretation (test code = 83059-0) Abnormal [facility] [id number] 18:23:00* Test Item Value Reference Range Interpretation Comme nts POCT PREG (test code = 1605) Negative On board controls acceptable with C Line (test code = 3574) Present POCT PREG LOT # (test code = 3575) HCG [id number] POCT PREG TEST DATE ( test code = 3576) 07/06/2023 Lab Interpretation (test cod e = 14043-3) Normal [facility] MOLECULAR [id number] 16:05:46* Test Item Value Reference Range Interpretation Comme nts POCT Molecular FluA (test co de = 01083-4) Positive Negative A Lab Interpretation (test cod e = 86014-9) Abnormal [facility] MOLECULAR [id number] 15:34:18* Test Item Value Reference Range Interpretation Comme nts POCT Molecular Strep (test c ode = 79628-2) Negative Negative Lab Interpretation (test cod e = 18797-3) [facility] W/AUTO [id number] 05:19:00* Test Item Value Reference Range Interpretation Comme nts WHITE BLOOD CELL (test code = WBC) 14.9 K/mm3 4.5-12.5 H RED BLOOD CELL (test code = RBC) 4.13 mill/mm3 3.7-5.2 N HEMOGLOBIN (test code = HGB) 11.0 gram/dL 11.5-15.5 L HEMATOCRIT (test code = HCT) 34.3 % 36.0-46.0 L MEAN CELL VOLUME (test code = MCV) 83.1 fL 80-98 N MEAN CELL HGB (test code = MCH) 26.6 picogram 27.0-33.0 L MEAN CELL HGB CONCETRATION (test code = MCHC) 32.1 gram/dL 33.0-36.0 L RED CELL DISTRIBUTION WIDTH (test code = RDW) 15.4 % 11.6-16.2 N RED CELL DISTRIBUTION WIDTH SD (test code = RDW-SD) 46.7 fL 37.0-51.0 N PLATELET COUNT (test code = PLT) 459 K/mm3 150-450 H MEAN PLATELET VOLUME (test c ode = MPV) 10.3 fL 6.7-11.0 N NEUTROPHIL % (test code = NT%) 72.1 % 39.0-69.0 H IMMATURE GRANULOCYTE % (test code = IG%) 0.5 % 0.0-5.0 N LYMPHOCYTE % (test code = LY%) 19.9 % 25.0-55.0 L MONOCYTE % (test code = MO%) 6.6 % 0.0-10.0 N EOSINOPHIL % (test code = EO%) 0.4 % 0.0-5.0 N BASOPHIL % (test code = BA%) 0.5 % 0.0-1.0 N NUCLEATED RBC % (test code = NRBC%) 0.0 % 0-0 N NEUTROPHIL # (test code = NT#) 10.73 K/mm3 1.8-7.7 H IMMATURE GRANULOCYTE # (test code = IG#) 0.07 x10 3/uL 0-0.03 H LYMPHOCYTE # (test code = LY#) 2.96 K/mm3 1.0-5.0 N MONOCYTE # (test code = MO#) 0.98 K/mm3 0-0.8 H EOSINOPHIL # (test code = EO#) 0.06 K/mm3 0.0-0.5 N BASOPHIL # (test code = BA#) 0.07 K/mm3 0.0-0.2 N NUCLEATED RBC # (test code = NRBC#) 0.00 K/mm3 0.0-0.1 N URINALYSIS [id number] 20:30:00* Test Item Value Reference Range Interpretation Comme nts UA COLOR (test code = COLU) COLORLESS YELLOW A UA APPEARANCE (test code = APPU) CLEAR CLEAR UA GLUCOSE DIPSTICK (test code = DGLUU) NEGATIVE mg/dL NEGATIVE UA BILIRUBIN DIPSTICK (test code = BILU) NEGATIVE mg/dL NEGATIVE UA KETONE DIPSTICK (test code = KETU) 40 (2+) mg/dL NEGATIVE A UA SPECIFIC GRAVITY (test code = SGU) 1.007 1.001-1.035 UA BLOOD DIPSTICK (test code = DEMETRIUS) Negative mg/dL NEGATIVE UA PH DIPSTICK (test code = ZENON) 6.5 5.0-8.0 UA PROTEIN DIPSTICK (test code = PROU) NEGATIVE mg/dL NEGATIVE UA UROBILINIOGEN DIPSTICK (test code = URO) Normal mg/dL NEGATIVE UA NITRITE DIPSTICK (test code = CAITLIN) NEGATIVE NEGATIVE UA LEUKOCYTE ESTERASE W REFLEX (test code = LEUUR) 75 Dee Dee/uL (1+) Dee Dee/uL NEGATIVE A UA WBC (test code = WBCU) 0-5 per HPF 0-5 UA RBC (test code = RBCU) 0-2 #/HPF 0-5 UA EPITHELIAL CELLS (test code = EPIU) FEW per HPF FEW UA BACTERIA (test code = BACU) NONE SEEN #/HPF NONE Urine Source? Clean [id number] 16:26:00 RUN DATE: 07/30/19 [facility] PAGE 1 RUN TIME: 1626 Specimen Inquiry RUN USER: INTERFACE SAMANTHA CROOKNT: ANGELA LAICCT #: [id number] LOC: AFSANEH #: [id number] AGE/SX: ROOM: [facility] RE07/29/19REG DR: Antelmo Richardson MD : 99 BED: A DIS: STATUS: ADM IN TLOC: SPEC #: [id number] RECD: 07/29/19 STATUS: FARHEEN WYMAN #: [id number] ESTHER: 07/29/19- SUBM DR: Antelmo Richardson MD ENTERED: 07/29/19 SP TYPE: STOMACH OTHR DR: No Primary or Family Physician Dylan Tucker MDORDERED: GROSS COPIES TO: No Primary or Family Physician Antelmo Richardson MD [address] [place], [place] [address] Dylan Tucker MD [address] [address] [place] [address] PROCEDURES: GROSS (07/30/19-113) TISSUES: STOMACH, NOS - PORTION OF STOMACH CLINICAL HISTORY COLLECTION DATE: 07/29/19 [facility] OBESITY FINAL DIAGNOSIS Portion of stomach, laparoscopic sleeve gastrectomy: PORTION OF STOMACH, NO PATHOLOGIC ALTERATION DMW/sm D 51539 MACROSCOPIC The specimen is received in formalin labeled with the patient's name, "portion of stomach" and consists of a sleeve gastrectomy specimen measuring 17.5 by up to 4.5 cm with a wall thickness up to 0.5 cm. The mucosal edge is stapled closed. A minimal amountof unremarkable yellow fatty tissue is CONTINUED ON NEXT PAGE RUN DATE: 07/30/19 [facility] PAGE 2 RUN TIME: 6 Specimen Inquiry RUN USER: INTERFACE SPEC #: [id number] PATIENT: GEM LAI #[id number] (Continued) MACROSCOPIC (Continued) attached to the opposite surface. The mucosal surface is dark pink with unremarkable folds. No areas of ulceration, nodules or masses are seen. Vp Strategy tissue is submitted in a single cassette. GROSS PERFORMED AT [facility] [address] [place] [address] (p)[phone] MICROSCOPIC All of the stains, including any controls performed, stain appropriately. MICROSCOPIC PERFORMED AT [facility] [address] [facility], [place] [address] (p)[phone] PERFORMING SITE Diagnosis performed at: [facility] [address] [place] [address] Signed SIGNATURE ON FILE Tayler Brooks MD 07/30/19 1626 END OF REPORT BASIC METABOLIC [id number] 07:04:00* Test Item Value Reference Range Interpretation Comme nts SODIUM (test code = NA) 138 mmol/L 136-145 N POTASSIUM (test code = K) 4.3 mmol/L 3.5-5.1 N CHLORIDE (test code = CL) 106.0 mmol/L 98-107 N CARBON DIOXIDE (test code = CO2) 21.0 mmol/L 21-32 N ANION GAP (test code = GAP) 15.3 10-20 N GLUCOSE (test code = GLU) 80 mg/dL 74-106 N BLOOD UREA NITROGEN (test code = BUN) 5 mg/dL 7-18 L GLOMERULAR FILTRATION RATE (test code = GFR) > 60 mL/min >=60 Estimated GFR by using Modified MDRD formula.Chronic kidney disease is defined as either kidney damageor GFR <60 mL/min/1.73 m2 for >3 months. CREATININE (test code = CREAT) 0.60 mg/dL 0.55-1.02 N Note change in reference range due to change in reagent. BUN/CREATININE RATIO (test code = BUN/CREA) 8.1 10-20 L CALCIUM (test code = CA) 9.0 mg/dL 8.5-10.1 N BASIC METABOLIC [id number] 06:56:00* Test Item Value Reference Range Interpretation Comme nts SODIUM (test code = NA) 138 mmol/L 136-145 N POTASSIUM (test code = K) 4.3 mmol/L 3.5-5.1 N CHLORIDE (test code = CL) 106.0 mmol/L 98-107 N CARBON DIOXIDE (test code = CO2) mmol/L 21-32 ANION GAP (test code = GAP) 10-20 GLUCOSE (test code = GLU) mg/dL 74-106 BLOOD UREA NITROGEN (test co de = BUN) mg/dL 7-18 GLOMERULAR FILTRATION RATE ( test code = GFR) mL/min >=60 CREATININE (test code = CREAT) mg/dL 0.55-1.02 BUN/CREATININE RATIO (test c ode = BUN/CREA) 10-20 CALCIUM (test code = CA) mg/dL 8.5-10.1 CBC W/AUTO [id number] 05:46:00* Test Item Value Reference Range Interpretation Comme nts WHITE BLOOD CELL (test code = WBC) 19.3 K/mm3 4.5-12.5 H RED BLOOD CELL (test code = RBC) 4.48 mill/mm3 3.7-5.2 N HEMOGLOBIN (test code = HGB) 11.8 gram/dL 11.5-15.5 N HEMATOCRIT (test code = HCT) 37.0 % 36.0-46.0 N MEAN CELL VOLUME (test code = MCV) 82.6 fL 80-98 N MEAN CELL HGB (test code = MCH) 26.3 picogram 27.0-33.0 L MEAN CELL HGB CONCETRATION (test code = MCHC) 31.9 gram/dL 33.0-36.0 L RED CELL DISTRIBUTION WIDTH (test code = RDW) 15.0 % 11.6-16.2 N RED CELL DISTRIBUTION WIDTH SD (test code = RDW-SD) 45.2 fL 37.0-51.0 N PLATELET COUNT (test code = PLT) 474 K/mm3 150-450 H MEAN PLATELET VOLUME (test c ode = MPV) 10.3 fL 6.7-11.0 N NEUTROPHIL % (test code = NT%) 84.4 % 39.0-69.0 H IMMATURE GRANULOCYTE % (test code = IG%) 0.4 % 0.0-5.0 N LYMPHOCYTE % (test code = LY%) 9.3 % 25.0-55.0 L MONOCYTE % (test code = MO%) 5.6 % 0.0-10.0 N EOSINOPHIL % (test code = EO%) 0.1 % 0.0-5.0 N BASOPHIL % (test code = BA%) 0.2 % 0.0-1.0 N NUCLEATED RBC % (test code = NRBC%) 0.0 % 0-0 N NEUTROPHIL # (test code = NT#) 16.27 K/mm3 1.8-7.7 H IMMATURE GRANULOCYTE # (test code = IG#) 0.08 x10 3/uL 0-0.03 H LYMPHOCYTE # (test code = LY#) 1.79 K/mm3 1.0-5.0 N MONOCYTE # (test code = MO#) 1.08 K/mm3 0-0.8 H EOSINOPHIL # (test code = EO#) 0.01 K/mm3 0.0-0.5 N BASOPHIL # (test code = BA#) 0.03 K/mm3 0.0-0.2 N NUCLEATED RBC # (test code = NRBC#) 0.00 K/mm3 0.0-0.1 N MANUAL DIFF REQUIRED (test c ode = MDIFF) NO [id number] 06:31:00* Test Item Value Reference Range Interpretation Comme nts GLUBED (test code = GLUBED) 92 mg/dL 74-106 N Performed by cer tified photostat operator at [facility] Novel Coronavirus 2019 [id number] 02:35:00* Test Item Value Reference Range Interpretation Comme nts Novel Coronavirus 2019 Inhou se (test code = COVNONPUI) Negative Negative Testing Criteria: Preprocedure ScreeningNovel Coronavirus 2019 [id number] 02:35:00* Test Item Value Reference Range Interpretation Comme nts Novel Coronavirus 2019 Inhou se (test code = COVNONPUI) Negative Negative Testing Criteria: Preprocedure Screening- XR CHEST 2 [id number] 10:40:00FAX: Antelmo Armando MD [phone] [place]: O St: PRE Name: GEM [facility] [employer] : 2000 Age/S: 18/F [address] [facility] Unit #: [id number] Loc: [place] [address] Phys: Antelmo Richardson MD Acct: [id number] Dis Date: Status: PRE IN PHONE #: [phone] Exam Date: 07/24/2019 0955 FAX #: [phone] Reason: PRE OP EXAMS: CPT CODE: [id number] XR CHEST 2 V [id number] REASON FOR EXAM: PRE OP Exam Order Date: 07/24/2019 9:10 AM Ordering M.DJah: Antelmo Richardson MD PROCEDURE: - XR CHEST 2 V COMPARISON: Chest x-ray June 04, 2019 FINDINGS: The lungs are clear. There is no pleural effusion or pneumothorax.Pulmonary vascularity is within normal limits. Cardiomediastinal silhouette is normal in size for technique. The mediastinal contours are within normal limits. Musculoskeletal structures are within normal limits. The visualized upper abdomen is within normal limits. IMPRESSION: No acute cardiopulmonary process. Location: [facility] at 1040 Reported and signed by: Vikas Callaway MD CC: Antelmo Richardson MD Technologist: RT MAGDALENA(R) Trnscrd Rosa ate/Time/By: 07/24/2019 (1040) : By: TheresaRR31 Orig Print D/T: S: 07/24/2019 (3807) PAGE 1 SignedReportCOMPREHENSIVE METABOLIC [id number] 10:26:00* Test Item Value Reference Range Interpretation Comme nts SODIUM (test code = NA) 139 mmol/L 136-145 N POTASSIUM (test code = K) 4.0 mmol/L 3.5-5.1 N CHLORIDE (test code = CL) 107.0 mmol/L 98-107 N CARBON DIOXIDE (test code = CO2) 25.0 mmol/L 21-32 N ANION GAP (test code = GAP) 11.0 10-20 N GLUCOSE (test code = GLU) 84 mg/dL 74-106 N BLOOD UREA NITROGEN (test code = BUN) 10 mg/dL 7-18 N GLOMERULAR FILTRATION RATE (test code = GFR) > 60 mL/min >=60 Estimated GFR by using Modified MDRD formula.Chronic kidney disease is defined as either kidney damageor GFR <60 mL/min/1.73 m2 for >3 months. CREATININE (test code = CREAT) 0.70 mg/dL 0.55-1.02 N Note change in reference range due to change in reagent. BUN/CREATININE RATIO (test code = BUN/CREA) 14.2 10-20 N TOTAL PROTEIN (test code = PROT) 8.1 gram/dL 6.4-8.2 N ALBUMIN (test code = ALB) 3.5 g/dL 3.4-5.0 N GLOBULIN (test code = GLOB) 4.6 gram/dL 2.7-4.2 H ALBUMIN/GLOBULIN RATIO (test code = A/G) 0.8 0.75-1.50 N CALCIUM (test code = CA) 9.2 mg/dL 8.5-10.1 N BILIRUBIN TOTAL (test code = BILT) 0.20 mg/dL 0.0-1.0 N SGOT/AST (test code = AST) 18 IUnit/L 15-37 N SGPT/ALT (test code = ALT) 36 IUnit/L 12-78 N ALKALINE PHOSPHATASE TOTAL (test code = ALKP) 83 IUnit/L 37-107 N HCG SERUM [id number] 10:23:00* Test Item Value Reference Range Interpretation Comme nts HCG SERUM BETA (test code = HCG) < 1.0 mIU/mL 0-3 N INTERPRETATION :B-HCG LEVELS <5 SHOULD BE CONSIDERED "NEGATIVE." *WHEN BODERLINE RESULTS ARE ENCOUNTERED,PATIENT SAMPLESSHOULD BE REDRAWN 48 HOURS. 0-1 WEEKS AFTER CONCEPTION 5-50 MIU/ML1-2 WEEKS AFTER CONCEPTION 50-500 MIU/ML2-3 WEEKS AFTER CONCEPTION 100 -5,000 MIU/ML3-4 WEEKS AFTER CONCEPTION 500-10,000 MIU/ML4-5 WEEKS AFTER CONCEPTION 1000 -50,000 MIU/ML5-6 WEEKS AFTER CONCEPTION 10,000-100,000 MIU/ML6-8 WEEKS AFTER CONCEPTION 15,000- 200,000 MIU/ML2-3 MONTHS AFTER CONCEPTION 10,000-100,000 MIU/ML IS THIS PATIENT ? NOCOMPREHENSIVE METABOLIC [id number] 10:18:00* Test Item Value Reference Range Interpretation Comme nts SODIUM (test code = NA) 139 mmol/L 136-145 N POTASSIUM (test code = K) 4.0 mmol/L 3.5-5.1 N CHLORIDE (test code = CL) 107.0 mmol/L 98-107 N CARBON DIOXIDE (test code = CO2) mmol/L 21-32 ANION GAP (test code = GAP) 10-20 GLUCOSE (test code = GLU) mg/dL 74-106 BLOOD UREA NITROGEN (test co de = BUN) mg/dL 7-18 GLOMERULAR FILTRATION RATE ( test code = GFR) mL/min >=60 CREATININE (test code = CREAT) mg/dL 0.55-1.02 BUN/CREATININE RATIO (test c ode = BUN/CREA) 10-20 TOTAL PROTEIN (test code = PROT) gram/dL 6.4-8.2 ALBUMIN (test code = ALB) g/dL 3.4-5.0 GLOBULIN (test code = GLOB) gram/dL 2.7-4.2 ALBUMIN/GLOBULIN RATIO (test code = A/G) 0.75-1.50 CALCIUM (test code = CA) mg/dL 8.5-10.1 BILIRUBIN TOTAL (test code = BILT) mg/dL 0.0-1.0 SGOT/AST (test code = AST) IUnit/L 15-37 SGPT/ALT (test code = ALT) IUnit/L 12-78 ALKALINE PHOSPHATASE TOTAL ( test code = ALKP) IUnit/L 37-107 PROTHROMBIN [id number] 10:14:00* Test Item Value Reference Range Interpretation Comme nts PROTHROMBIN TIME PATIENT (test code = PTP) 12.5 seconds 9.0-14.0 N INTERNATIONAL NORMAL RATIO (test code = INR) 1.1 0.8-1.2 N The therapeutic range for oral anticoagulant therapy formost indications is an international normalized ratio (INR)of between 2.0 and 3.0. The recommended therapeutic INRrange for various clinical situations is listed below: Clinical Situation INR range Pulmonary embolism treatment (2.0-3.0)Venous thrombosis treatmentVenous thrombosis prophylaxis (high risk surgery)Prevention of systemic embolism from: Acute myocardial infarction Valvular heart disease Atrial fibrillation Mechanical prosthetic heart valves (2.5-3.5) IS PATIENT ON ANTICOAGULANTS? NTHROMBOPLASTIN TIME [id number] 10:14:00* Test Item Value Reference Range Interpretation Comme nts THROMBOPLASTIN TIME PARTIAL (test code = PTT) 42.3 seconds 23.0-37.0 H IS PATIENT ON ANTICOAGULANTS? NURINALYSIS [id number] 10:11:00* Test Item Value Reference Range Interpretation Comme nts UA COLOR (test code = COLU) COLORLESS YELLOW A UA APPEARANCE (test code = APPU) CLEAR CLEAR UA GLUCOSE DIPSTICK (test code = DGLUU) NEGATIVE mg/dL NEGATIVE UA BILIRUBIN DIPSTICK (test code = BILU) NEGATIVE mg/dL NEGATIVE UA KETONE DIPSTICK (test cod e = KETU) NEGATIVE mg/dL NEGATIVE UA SPECIFIC GRAVITY (test code = SGU) 1.007 1.001-1.035 UA BLOOD DIPSTICK (test code = DEMETRIUS) Negative mg/dL NEGATIVE UA PH DIPSTICK (test code = ZENON) 6.0 5.0-8.0 UA PROTEIN DIPSTICK (test code = PROU) NEGATIVE mg/dL NEGATIVE UA UROBILINIOGEN DIPSTICK (test code = URO) Normal mg/dL NEGATIVE UA NITRITE DIPSTICK (test code = CAITLIN) NEGATIVE NEGATIVE UA LEUKOCYTE ESTERASE W REFLEX (test code = LEUUR) NEGATIVE Dee Dee/uL NEGATIVE UA WBC (test code = WBCU) 0-5 per HPF 0-5 UA RBC (test code = RBCU) NONE SEEN #/HPF 0-5 UA EPITHELIAL CELLS (test code = EPIU) FEW per HPF FEW UA BACTERIA (test code = BACU) FEW #/HPF NONE A UA MUCUS (test code = MUCU) FEW #/LPF FEW Urine Source? Clean CatchURINALYSIS [id number] 10:07:00* Test Item Value Reference Range Interpretation Comme nts UA COLOR (test code = COLU) COLORLESS YELLOW A UA APPEARANCE (test code = APPU) CLEAR CLEAR UA GLUCOSE DIPSTICK (test code = DGLUU) NEGATIVE mg/dL NEGATIVE UA BILIRUBIN DIPSTICK (test code = BILU) NEGATIVE mg/dL NEGATIVE UA KETONE DIPSTICK (test cod e = KETU) NEGATIVE mg/dL NEGATIVE UA SPECIFIC GRAVITY (test code = SGU) 1.007 1.001-1.035 UA BLOOD DIPSTICK (test code = DEMETRIUS) Negative mg/dL NEGATIVE UA PH DIPSTICK (test code = ZENON) 6.0 5.0-8.0 UA PROTEIN DIPSTICK (test code = PROU) NEGATIVE mg/dL NEGATIVE UA UROBILINIOGEN DIPSTICK (test code = URO) Normal mg/dL NEGATIVE UA NITRITE DIPSTICK (test code = CAITLIN) NEGATIVE NEGATIVE UA LEUKOCYTE ESTERASE W REFLEX (test code = LEUUR) NEGATIVE Dee Dee/uL NEGATIVE UA WBC (test code = WBCU) per HPF 0-5 UA RBC (test code = RBCU) per HPF 0-5 UA EPITHELIAL CELLS (test code = EPIU) per HPF Few UA BACTERIA (test code = BACU) per HPF NONE Urine Source? Clean CatchCBC W/AUTO [id number] 10:04:00* Test Item Value Reference Range Interpretation Comme nts WHITE BLOOD CELL (test code = WBC) 13.1 K/mm3 4.5-12.5 H RED BLOOD CELL (test code = RBC) 4.25 mill/mm3 3.7-5.2 N HEMOGLOBIN (test code = HGB) 11.2 gram/dL 11.5-15.5 L HEMATOCRIT (test code = HCT) 35.6 % 36.0-46.0 L MEAN CELL VOLUME (test code = MCV) 83.8 fL 80-98 N MEAN CELL HGB (test code = MCH) 26.4 picogram 27.0-33.0 L MEAN CELL HGB CONCETRATION (test code = MCHC) 31.5 gram/dL 33.0-36.0 L RED CELL DISTRIBUTION WIDTH (test code = RDW) 15.6 % 11.6-16.2 N RED CELL DISTRIBUTION WIDTH SD (test code = RDW-SD) 47.4 fL 37.0-51.0 N PLATELET COUNT (test code = PLT) 444 K/mm3 150-450 N MEAN PLATELET VOLUME (test c ode = MPV) 9.5 fL 6.7-11.0 N NEUTROPHIL % (test code = NT%) 76.0 % 39.0-69.0 H IMMATURE GRANULOCYTE % (test code = IG%) 0.4 % 0.0-5.0 N LYMPHOCYTE % (test code = LY%) 16.9 % 25.0-55.0 L MONOCYTE % (test code = MO%) 5.0 % 0.0-10.0 N EOSINOPHIL % (test code = EO%) 1.2 % 0.0-5.0 N BASOPHIL % (test code = BA%) 0.5 % 0.0-1.0 N NUCLEATED RBC % (test code = NRBC%) 0.0 % 0-0 N NEUTROPHIL # (test code = NT#) 9.99 K/mm3 1.8-7.7 H IMMATURE GRANULOCYTE # (test code = IG#) 0.05 x10 3/uL 0-0.03 H LYMPHOCYTE # (test code = LY#) 2.22 K/mm3 1.0-5.0 N MONOCYTE # (test code = MO#) 0.66 K/mm3 0-0.8 N EOSINOPHIL # (test code = EO#) 0.16 K/mm3 0.0-0.5 N BASOPHIL # (test code = BA#) 0.06 K/mm3 0.0-0.2 N NUCLEATED RBC # (test code = NRBC#) 0.00 K/mm3 0.0-0.1 N LIPID PROFILE (CORONARY RISK)2019-06-07 19:07:00* Test Item Value Reference Range Interpretation Comme nts TRIGLYCERIDES (test code = TRIG) 185 mg/dL 20-150 H CHOLESTEROL (test code = CHOL) 190 mg/dL 0-200 N CHOLESTEROL/HDL RATIO (test code = CHOLHDL) 6.0 RATIO 0-4.9 H RISK ASSOC IATED WITH CHOL/HDL RATIOS: Risk Male Female1/2 AVERAGE 3.43 3.27AVERAGE 4.97 4.442X AVERAGE 9.55 7.053X AVERAGE 23.39 11.04 REFERENCE VALUE IS RELATED TO RISK LEVELS ASRECOMMENDED BY THE [facility]. HEART, LUNG, AND BLOOD INST. HDL CHOLESTEROL (test code = HDL) 29 mg/dL 40-60 L LIPOPROTEIN LDL (test code = LDL) 125 mg/dL 100-129 N RN PERSONNEL, CO NTACT PHYSICIAN IMMEDIATELY IF THIS IS A STROKE, AMI OR CAROTID STENOSIS PATIENT WHEN THE LDL >100 (1ST OCCURENCE, THIS ADMISSION) ===Reference Interval: mg/dL mmol/L O ptimal <100 <2.6Near/above optimal 100-129 2.6-3.3Borderline High 130-159 3.4-4.1High 160-189 4.1-4.9Very High >=190 >=4.9========= This LDL result is a direct measurement.========= HEPATIC FUNCTION [id number] 19:07:00* Test Item Value Reference Range Interpretation Comme nts TOTAL PROTEIN (test code = PROT) 8.0 gram/dL 6.4-8.2 N ALBUMIN (test code = ALB) 3.6 g/dL 3.4-5.0 N GLOBULIN (test code = GLOB) 4.4 gram/dL 2.7-4.2 H ALBUMIN/GLOBULIN RATIO (test code = A/G) 0.8 0.75-1.50 N BILIRUBIN TOTAL (test code = BILT) 0.30 mg/dL 0.0-1.0 N BILIRUBIN DIRECT (test code = BILD) 0.10 mg/dL 0.0-0.20 N SGOT/AST (test code = AST) 23 IUnit/L 15-37 N SGPT/ALT (test code = ALT) 40 IUnit/L 12-78 N ALKALINE PHOSPHATASE TOTAL ( test code = ALKP) 99 IUnit/L 37-107 N HCG SERUM [id number] 19:07:00* Test Item Value Reference Range Interpretation Comme nts HCG SERUM QUAL (test code = HCGQL) NEGATIVE NEGATIVE This HCGQL test is NOT applicable for MALE patients.Check with nurse about probable order error.If Tumor Marker Test needed, nurse should order test "HCGTU"(Test #550.86099) VITAMIN [id number] 19:07:00* Test Item Value Reference Range Interpretation Comme nts VITAMIN B12 (test code = VITB12) 446 pg/mL 193-986 N FOLIC [id number] 19:07:00* Test Item Value Reference Range Interpretation Comme nts FOLIC ACID (test code = FOL) 15.8 ng/mL 3.10-17.50 N THYROID PROFILE [id number] 19:07:00* Test Item Value Reference Range Interpretation Comme nts T3 UPTAKE (test code = T3UP) 34.0 % 30.0-40.0 N T4 (THYROXINE) (test code = T4) 9.6 ug/dL 4.5-13.9 N T7 (FREE THYROXINE INDEX) (test code = T7) 3.26 FTI 1.3-5.1 N THYROID STIMULATING HORMONE (test code = TSH) 4.470 uIU/mL 0.36-3.74 H TSH REFERENCE RANGES: EUTHYROID: 0.35 - 4.3 mIU/mL HYPO : > 5.5 mIU/mL HYPER : < 0.35 mIU/mL T4 [id number] 19:07:00* Test Item Value Reference Range Interpretation Comme nts T4 FREE (test code = T4F) 1.04 ng/dL 0.76-1.46 N VIT B1 WHOLE [id number] 19:07:00* Test Item Value Reference Range Interpretation Comme nts VIT B1 WHOLE BLOOD (test code = [id number]) 125.5 nmol/L 66.5-200.0 Performed At: [facility] [id number] Sanjai MD Ph:[phone] T3 [id number] 06:08:00* Test Item Value Reference Range Interpretation Comme nts T3 FREE (test code = T3F) 3.4 pg/mL 2.3-5.0 Performed At: [facility] [id number] Kyle L MD Ph:[phone] Novel Coronavirus 13:12:00* Test Item Value Reference Range Interpretation Comme nts Novel Coronavirus 2019 Inhouse (test code = [id number]) Negative Negative Positive resul ts are indicative of the presence [id number]-KqM-6 RNA, clinical correlation with patient historyand other diagnostic information is necessary to determinepatient infection status. Positive results do not rule outbacterial infection or co-infection with other viruses. Negative results do not preclude SARS-CoV-2 infection andshould not be used as the sole basis for patient managementdecisions. Negative results must be combined with otherclinical observations, patient history, and epidemiologicalinformation . Detection of SARS-CoV-2 RNA may be affected bysample collection methods, storage conditions, and/or stageof infection. Viral RNA mutations, vaccinations, antiviraltherapeutics, antibiotics, chemotherapeutic orimmunosuppressant drugs have not been evaluated for effectson detection. Results are for the identification of SARS-CoV-2 RNA usingthe [employer] M2000 System under the FDA Emergency UseAuthorization. The testing is performed by personneltrained in the procedures for the [employer] M2000 moleculardiagnostic SARS-CoV-2 assay in vitro. Testing Criteria: Preprocedure ScreeningNovel Coronavirus 13:11:00* Test Item Value Reference Range Interpretation Comme nts Novel Coronavirus 2019 Inhouse (test code = [id number]) Negative Negative Positive resul ts are indicative of the presence ugNWPT-OxI-9 RNA, clinical correlation with patient historyand other diagnostic information is necessary to determinepatient infection status. Positive results do not rule outbacterial infection or co-infection with other viruses. Negative results do not preclude SARS-CoV-2 infection andshould not be used as the sole basis for patient managementdecisions. Negative results must be combined with otherclinical observations, patient history, and epidemiologicalinformation . Detection of SARS-CoV-2 RNA may be affected bysample collection methods, storage conditions, and/or stageof infection. Viral RNA mutations, vaccinations, antiviraltherapeutics, antibiotics, chemotherapeutic orimmunosuppressant drugs have not been evaluated for effectson detection. Results are for the identification of SARS-CoV-2 RNA usingthe [employer] M2000 System under the FDA Emergency UseAuthorization. The testing is performed by personneltrained in the procedures for the [employer] moleculardiagnostic SARS-CoV-2 assay in vitro. Testing Criteria: Preprocedure ScreeningAB HIV 1 13:33:00* Test Item Value Reference Range Interpretation Comme nts AB HIV 1 2 (test code = [id number]) Nonreactive NonReactive It is recognized that currently available assays for thedetection of antibodies to HIV-1 and/or HIV-2 may notdetect all infected individuals. A negative test result doesnot exclude the possibility of exposure to or infection withHIV. HIV antibodies may be undetectable in some stages ofthe infection and in some clinical conditions. AB HELICOBACTER [id number] 12:21:00* Test Item Value Reference Range Interpretation Comme nts AB HELICOBACTER IGG (test co de = HELIGAB) NEGATIVE NEGATIVE LIPID PROFILE (CORONARY RISK)2019-06-04 12:13:00* Test Item Value Reference Range Interpretation Comme nts TRIGLYCERIDES (test code = TRIG) 185 mg/dL 20-150 H CHOLESTEROL (test code = CHOL) 190 mg/dL 0-200 N CHOLESTEROL/HDL RATIO (test code = CHOLHDL) 6.0 RATIO 0-4.9 H RISK ASSOC IATED WITH CHOL/HDL RATIOS: Risk Male Female1/2 AVERAGE 3.43 3.27AVERAGE 4.97 4.442X AVERAGE 9.55 7.053X AVERAGE 23.39 11.04 REFERENCE VALUE IS RELATED TO RISK LEVELS ASRECOMMENDED BY THE [facility]. HEART, LUNG, AND BLOOD INST. HDL CHOLESTEROL (test code = HDL) 29 mg/dL 40-60 L LIPOPROTEIN LDL (test code = LDL) 125 mg/dL 100-129 N RN PERSONNEL, CO NTACT PHYSICIAN IMMEDIATELY IF THIS IS A STROKE, AMI OR CAROTID STENOSIS PATIENT WHEN THE LDL >100 (1ST OCCURENCE, THIS ADMISSION) ===Reference Interval: mg/dL mmol/L O ptimal <100 <2.6Near/above optimal 100-129 2.6-3.3Borderline High 130-159 3.4-4.1High 160-189 4.1-4.9Very High >=190 >=4.9========= This LDL result is a direct measurement.========= HEPATIC FUNCTION [id number] 12:13:00* Test Item Value Reference Range Interpretation Comme nts TOTAL PROTEIN (test code = PROT) 8.0 gram/dL 6.4-8.2 N ALBUMIN (test code = ALB) 3.6 g/dL 3.4-5.0 N GLOBULIN (test code = GLOB) 4.4 gram/dL 2.7-4.2 H ALBUMIN/GLOBULIN RATIO (test code = A/G) 0.8 0.75-1.50 N BILIRUBIN TOTAL (test code = BILT) 0.30 mg/dL 0.0-1.0 N BILIRUBIN DIRECT (test code = BILD) 0.10 mg/dL 0.0-0.20 N SGOT/AST (test code = AST) 23 IUnit/L 15-37 N SGPT/ALT (test code = ALT) 40 IUnit/L 12-78 N ALKALINE PHOSPHATASE TOTAL ( test code = ALKP) 99 IUnit/L 37-107 N HCG SERUM [id number] 12:13:00* Test Item Value Reference Range Interpretation Comme nts HCG SERUM QUAL (test code = HCGQL) NEGATIVE NEGATIVE This HCGQL test is NOT applicable for MALE patients.Check with nurse about probable order error.If Tumor Marker Test needed, nurse should order test "HCGTU"(Test #550.67302) VITAMIN [id number] 12:13:00* Test Item Value Reference Range Interpretation Comme nts VITAMIN B12 (test code = VITB12) 446 pg/mL 193-986 N FOLIC [id number] 12:13:00* Test Item Value Reference Range Interpretation Comme nts FOLIC ACID (test code = FOL) 15.8 ng/mL 3.10-17.50 N THYROID PROFILE [id number] 12:13:00* Test Item Value Reference Range Interpretation Comme nts T3 UPTAKE (test code = T3UP) 34.0 % 30.0-40.0 N T4 (THYROXINE) (test code = T4) 9.6 ug/dL 4.5-13.9 N T7 (FREE THYROXINE INDEX) (test code = T7) 3.26 FTI 1.3-5.1 N THYROID STIMULATING HORMONE (test code = TSH) 4.470 uIU/mL 0.36-3.74 H TSH REFERENCE RANGES: EUTHYROID: 0.35 - 4.3 mIU/mL HYPO : > 5.5 mIU/mL HYPER : < 0.35 mIU/mL T4 [id number] 12:13:00* Test Item Value Reference Range Interpretation Comme nts T4 FREE (test code = T4F) 1.04 ng/dL 0.76-1.46 N VIT B1 WHOLE [id number] 12:13:00* Test Item Value Reference Range Interpretation Comme nts VIT B1 WHOLE BLOOD (test cod e = [id number]) nmol/L 87-280 [id number] 11:51:00* Test Item Value Reference Range Interpretation Comme nts GLYCOSYLATED HEMOGLOBIN (HA1C) (test code = GLYHGB) 5.7 % HbA1 SUGGESTED DIAGNO SIS: HbA1C (%) ----- Diabetic >6.4Prediabetes 5.7 - 6.4Normal <5.7 ESTIMATED AVERAGE GLUCOSE (test code = EAG) 117 MG/DL COMPREHENSIVE METABOLIC [id number] 11:42:00* Test Item Value Reference Range Interpretation Comme nts SODIUM (test code = NA) 139 mmol/L 136-145 N POTASSIUM (test code = K) 3.8 mmol/L 3.5-5.1 N CHLORIDE (test code = CL) 105.0 mmol/L 98-107 N CARBON DIOXIDE (test code = CO2) 28.0 mmol/L 21-32 N ANION GAP (test code = GAP) 9.8 10-20 L GLUCOSE (test code = GLU) 83 mg/dL 74-106 N BLOOD UREA NITROGEN (test code = BUN) 7 mg/dL 7-18 N GLOMERULAR FILTRATION RATE (test code = GFR) > 60 mL/min >=60 Estimated GFR by using Modified MDRD formula.Chronic kidney disease is defined as either kidney damageor GFR <60 mL/min/1.73 m2 for >3 months. CREATININE (test code = CREAT) 0.80 mg/dL 0.55-1.02 N Note change in reference range due to change in reagent. BUN/CREATININE RATIO (test code = BUN/CREA) 8.8 10-20 L TOTAL PROTEIN (test code = PROT) 8.4 gram/dL 6.4-8.2 H ALBUMIN (test code = ALB) 3.6 g/dL 3.4-5.0 N GLOBULIN (test code = GLOB) 4.8 gram/dL 2.7-4.2 H ALBUMIN/GLOBULIN RATIO (test code = A/G) 0.8 0.75-1.50 N CALCIUM (test code = CA) 9.0 mg/dL 8.5-10.1 N BILIRUBIN TOTAL (test code = BILT) 0.40 mg/dL 0.0-1.0 N SGOT/AST (test code = AST) 22 IUnit/L 15-37 N SGPT/ALT (test code = ALT) 39 IUnit/L 12-78 N ALKALINE PHOSPHATASE TOTAL (test code = ALKP) 96 IUnit/L 37-107 N LIPID PROFILE (CORONARY RISK)2019-06-04 11:40:00* Test Item Value Reference Range Interpretation Comme nts TRIGLYCERIDES (test code = TRIG) mg/dL 20-150 CHOLESTEROL (test code = CHOL) mg/dL 0-200 CHOLESTEROL/HDL RATIO (test code = CHOLHDL) RATIO 0-4.9 HDL CHOLESTEROL (test code = HDL) mg/dL 40-60 LIPOPROTEIN LDL (test code = LDL) mg/dL 100-129 HEPATIC FUNCTION [id number] 11:40:00* Test Item Value Reference Range Interpretation Comme nts TOTAL PROTEIN (test code = PROT) gram/dL 6.4-8.2 ALBUMIN (test code = ALB) g/dL 3.4-5.0 GLOBULIN (test code = GLOB) gram/dL 2.7-4.2 ALBUMIN/GLOBULIN RATIO (test code = A/G) 0.75-1.50 BILIRUBIN TOTAL (test code = BILT) mg/dL 0.0-1.0 BILIRUBIN DIRECT (test code = BILD) mg/dL 0.0-0.20 SGOT/AST (test code = AST) IUnit/L 15-37 SGPT/ALT (test code = ALT) IUnit/L 12-78 ALKALINE PHOSPHATASE TOTAL ( test code = ALKP) IUnit/L 37-107 HCG SERUM [id number] 11:40:00* Test Item Value Reference Range Interpretation Comme nts HCG SERUM QUAL (test code = HCGQL) NEGATIVE NEGATIVE This HCGQL test is NOT applicable for MALE patients.Check with nurse about probable order error.If Tumor Marker Test needed, nurse should order test "HCGTU"(Test #[id number]) VITAMIN [id number] 11:40:00* Test Item Value Reference Range Interpretation Comme [facility] VITAMIN B12 (test code = VITB12) pg/mL 193-986 FOLIC [id number] 11:40:00* Test Item Value Reference Range Interpretation Comme [facility] FOLIC ACID (test code = FOL) ng/mL 3.10-17.50 THYROID PROFILE [id number] 11:40:00* Test Item Value Reference Range Interpretation Comme [facility] T3 UPTAKE (test code = T3UP) % 30.0-40.0 T4 (THYROXINE) (test code = T4) ug/dL 4.5-13.9 T7 (FREE THYROXINE INDEX) (t est code = T7) FTI 1.3-5.1 THYROID STIMULATING HORMONE (test code = TSH) uIU/mL 0.36-3.74 T4 [id number] 11:40:00* Test Item Value Reference Range Interpretation Comme [facility] T4 FREE (test code = T4F) ng/dL 0.76-1.46 VIT B1 WHOLE [id number] 11:40:00* Test Item Value Reference Range Interpretation Comme [facility] VIT B1 WHOLE BLOOD (test cod e = [id number]) nmol/L 87-280 PROTHROMBIN [id number] 11:40:00* Test Item Value Reference Range Interpretation Comme [facility] PROTHROMBIN TIME PATIENT (test code = PTP) 13.0 seconds 9.0-14.0 N INTERNATIONAL NORMAL RATIO (test code = INR) 1.1 0.8-1.2 N The therapeutic range for oral anticoagulant therapy formost indications is an international normalized ratio (INR)of between 2.0 and 3.0. The recommended therapeutic INRrange for various clinical situations is listed below: Clinical Situation INR range Pulmonary embolism treatment (2.0-3.0)Venous thrombosis treatmentVenous thrombosis prophylaxis (high risk surgery)Prevention of systemic embolism from: Acute myocardial infarction Valvular heart disease Atrial fibrillation Mechanical prosthetic heart valves (2.5-3.5) IS PATIENT ON ANTICOAGULANTS? NTHROMBOPLASTIN TIME [id number] 11:40:00* Test Item Value Reference Range Interpretation Comme nts THROMBOPLASTIN TIME PARTIAL (test code = PTT) 42.5 seconds 23.0-37.0 H IS PATIENT ON ANTICOAGULANTS? NCOMPREHENSIVE METABOLIC [id number] 11:35:00 * Test Item Value Reference Range Interpretation Comme nts SODIUM (test code = NA) 139 mmol/L 136-145 N POTASSIUM (test code = K) 3.8 mmol/L 3.5-5.1 N CHLORIDE (test code = CL) 105.0 mmol/L 98-107 N CARBON DIOXIDE (test code = CO2) mmol/L 21-32 ANION GAP (test code = GAP) 10-20 GLUCOSE (test code = GLU) mg/dL 74-106 BLOOD UREA NITROGEN (test co de = BUN) mg/dL 7-18 GLOMERULAR FILTRATION RATE ( test code = GFR) mL/min >=60 CREATININE (test code = CREAT) mg/dL 0.55-1.02 BUN/CREATININE RATIO (test c ode = BUN/CREA) 10-20 TOTAL PROTEIN (test code = PROT) gram/dL 6.4-8.2 ALBUMIN (test code = ALB) g/dL 3.4-5.0 GLOBULIN (test code = GLOB) gram/dL 2.7-4.2 ALBUMIN/GLOBULIN RATIO (test code = A/G) 0.75-1.50 CALCIUM (test code = CA) mg/dL 8.5-10.1 BILIRUBIN TOTAL (test code = BILT) mg/dL 0.0-1.0 SGOT/AST (test code = AST) IUnit/L 15-37 SGPT/ALT (test code = ALT) IUnit/L 12-78 ALKALINE PHOSPHATASE TOTAL ( test code = ALKP) IUnit/L 37-107 CBC W/AUTO [id number] 11:27:00* Test Item Value Reference Range Interpretation Comme nts WHITE BLOOD CELL (test code = WBC) K/mm3 4.5-12.5 RED BLOOD CELL (test code = RBC) mill/mm3 3.7-5.2 HEMOGLOBIN (test code = HGB) 12.1 gram/dL 11.5-15.5 N HEMATOCRIT (test code = HCT) 36.9 % 36.0-46.0 N MEAN CELL VOLUME (test code = MCV) fL 80-98 MEAN CELL HGB (test code = MCH) picogram 27.0-33.0 MEAN CELL HGB CONCETRATION ( test code = MCHC) gram/dL 33.0-36.0 RED CELL DISTRIBUTION WIDTH (test code = RDW) % 11.6-16.2 RED CELL DISTRIBUTION WIDTH SD (test code = RDW-SD) fL 37.0-51.0 PLATELET COUNT (test code = PLT) K/mm3 150-450 MEAN PLATELET VOLUME (test c ode = MPV) fL 6.7-11.0 NEUTROPHIL % (test code = NT%) % 39.0-69.0 IMMATURE GRANULOCYTE % (test code = IG%) % 0.0-5.0 LYMPHOCYTE % (test code = LY%) % [...] code = BA#) K/mm3 0.0-0.2 CBC W/AUTO [id number] 11:27:00* Test Item Value Reference Range Interpretation Comme nts WHITE BLOOD CELL (test code = WBC) 9.5 K/mm3 4.5-12.5 N RED BLOOD CELL (test code = RBC) 4.55 mill/mm3 3.7-5.2 N HEMOGLOBIN (test code = HGB) 12.1 gram/dL 11.5-15.5 N HEMATOCRIT (test code = HCT) 36.9 % 36.0-46.0 N MEAN CELL VOLUME (test code = MCV) 81.1 fL 80-98 N MEAN CELL HGB (test code = MCH) 26.6 picogram 27.0-33.0 L MEAN CELL HGB CONCETRATION (test code = MCHC) 32.8 gram/dL 33.0-36.0 L RED CELL DISTRIBUTION WIDTH (test code = RDW) 14.7 % 11.6-16.2 N RED CELL DISTRIBUTION WIDTH SD (test code = RDW-SD) 43.3 fL 37.0-51.0 N PLATELET COUNT (test code = PLT) 456 K/mm3 150-450 H MEAN PLATELET VOLUME (test c ode = MPV) 10.1 fL 6.7-11.0 N NEUTROPHIL % (test code = NT%) 66.2 % 39.0-69.0 N IMMATURE GRANULOCYTE % (test code = IG%) 0.4 % 0.0-5.0 N LYMPHOCYTE % (test code = LY%) 25.1 % 25.0-55.0 N MONOCYTE % (test code = MO%) 6.3 % 0.0-10.0 N EOSINOPHIL % (test code = EO%) 1.4 % 0.0-5.0 N BASOPHIL % (test code = BA%) 0.6 % 0.0-1.0 N NUCLEATED RBC % (test code = NRBC%) 0.0 % 0-0 N NEUTROPHIL # (test code = NT#) 6.27 K/mm3 1.8-7.7 N IMMATURE GRANULOCYTE # (test code = IG#) 0.04 x10 3/uL 0-0.03 H LYMPHOCYTE # (test code = LY#) 2.38 K/mm3 1.0-5.0 N MONOCYTE # (test code = MO#) 0.60 K/mm3 0-0.8 N EOSINOPHIL # (test code = EO#) 0.13 K/mm3 0.0-0.5 N BASOPHIL # (test code = BA#) 0.06 K/mm3 0.0-0.2 N NUCLEATED RBC # (test code = NRBC#) 0.00 K/mm3 0.0-0.1 N URINALYSIS [id number] 11:24:00* Test Item Value Reference Range Interpretation Comme nts UA COLOR (test code = COLU) Light-Yellow YELLOW UA APPEARANCE (test code = APPU) CLEAR CLEAR UA GLUCOSE DIPSTICK (test code = DGLUU) NEGATIVE mg/dL NEGATIVE UA BILIRUBIN DIPSTICK (test code = BILU) NEGATIVE mg/dL NEGATIVE UA KETONE DIPSTICK (test cod e = KETU) NEGATIVE mg/dL NEGATIVE UA SPECIFIC GRAVITY (test code = SGU) 1.019 1.001-1.035 UA BLOOD DIPSTICK (test code = DEMETRIUS) Negative mg/dL NEGATIVE UA PH DIPSTICK (test code = ZENON) 6.0 5.0-8.0 UA PROTEIN DIPSTICK (test code = PROU) NEGATIVE mg/dL NEGATIVE UA UROBILINIOGEN DIPSTICK (test code = URO) Normal mg/dL NEGATIVE UA NITRITE DIPSTICK (test code = CAITLIN) NEGATIVE NEGATIVE UA LEUKOCYTE ESTERASE W REFLEX (test code = LEUUR) NEGATIVE Dee Dee/uL NEGATIVE UA WBC (test code = WBCU) 0-5 per HPF 0-5 UA RBC (test code = RBCU) 0-2 #/HPF 0-5 UA EPITHELIAL CELLS (test code = EPIU) FEW per HPF FEW UA BACTERIA (test code = BACU) NONE SEEN #/HPF NONE UA MUCUS (test code = MUCU) FEW #/LPF FEW SPECIMEN COMMENTS: REFLEX TO CULTUREUrine Source? VoidedURINALYSIS COMPLETE 2019-06-04 11:20:00* Test Item Value Reference Range Interpretation Comme nts UA COLOR (test code = COLU) Light-Yellow YELLOW UA APPEARANCE (test code = APPU) CLEAR CLEAR UA GLUCOSE DIPSTICK (test code = DGLUU) NEGATIVE mg/dL NEGATIVE UA BILIRUBIN DIPSTICK (test code = BILU) NEGATIVE mg/dL NEGATIVE UA KETONE DIPSTICK (test cod e = KETU) NEGATIVE mg/dL NEGATIVE UA SPECIFIC GRAVITY (test code = SGU) 1.019 1.001-1.035 UA BLOOD DIPSTICK (test code = DEMETRIUS) Negative mg/dL NEGATIVE UA PH DIPSTICK (test code = ZENON) 6.0 5.0-8.0 UA PROTEIN DIPSTICK (test code = PROU) NEGATIVE mg/dL NEGATIVE UA UROBILINIOGEN DIPSTICK (test code = URO) Normal mg/dL NEGATIVE UA NITRITE DIPSTICK (test code = CAITLIN) NEGATIVE NEGATIVE UA LEUKOCYTE ESTERASE W REFLEX (test code = LEUUR) NEGATIVE Dee Dee/uL NEGATIVE UA WBC (test code = WBCU) per HPF 0-5 UA RBC (test code = RBCU) per HPF 0-5 UA EPITHELIAL CELLS (test code = EPIU) per HPF Few UA BACTERIA (test code = BACU) per HPF NONE SPECIMEN COMMENTS: REFLEX TO CULTUREUrine Source? Voided- XR CHEST 2 [id number] 10:40:00FAX: Antelmo Armando MD [phone] [place]: O St: PRE Name: GEM LAI [employer] : 2000 Age/S: 18/F [address] [facility] Unit #: [id number] Loc: [place] [address] Phys: Antelmo Richardson MD Acct: [id number] Dis Date: Status: PRE SDC PHONE #: [phone] Exam Date: 06/04/2019 1000 FAX #: [phone] Reason: PRE OP EXAMS: CPT CODE: [id number] XR CHEST 2 V [id number] REASON FOR EXAM: PRE OP Exam Order Date: 06/04/2019 9:44 AM Ordering M.DJah: Antelmo Richardson MD PROCEDURE: - XR CHEST 2 V COMPARISON: None FINDINGS: The lungs are clear. There is no pleural effusion or pneumothorax. Pulmonary vascularity is within normal limits. Cardiomediastinal silhouette is normal in size for technique. The mediastinal contours are within normal limits. Musculoskeletal structures are within normal limits. Thevisualized upper abdomen is within normal limits. IMPRESSION: No acute cardiopulmonary process. Location: [facility] at 1040 Reported and signed by: Vikas Callaway MD CC: Antelmo Richardson MD Technologist: DARIUSZ RICH RT(R) Trnscrd Date/Time/By: (1040) : By: [email or web address] Orig Print D/T: S: 06/04/2019 (1040) PAGE 1 Signed Report
--- NOTE | 2024-03-16 13:41 | EDPHYS ---
Physician Documentation [facility] Name: Ashley Yen Age: 23 yrs Sex: Female : 2000 Arrival Date: 03/16/2024 Time: 12:57 Bed IW3 Private MD: ED Physician Omero Pena HPI: 03/16 14:42 This 23 yrs old Female presents to ER via Ambulatory with complaints of Eye sb4 Swelling. 14:44 patient states that she burned the outer inner corner of her left eye about 2 weeks ago sb4 with oil while cooking. states it has been red but healing slowly. however, this morning she woke up and her eye was almost swollen shut and the redness had increased. she denies any discharge or visual changes. 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 - Infectious Disease History:: Denies. - Social history:: Smoking status: Patient denies any tobacco usage or history of. ROS: 14:44 Constitutional: Negative for fever, chills, and weight loss, sb4 14:44 Eyes: Positive for redness, swelling, of the left upper eyelid and left lower eyelid, 14:44 All other systems are negative, Exam: 14:44 Visual Acuity: Visual acuity is within normal limits. sb4 14:44 Constitutional: This is a well developed, well nourished patient who is awake, alert, and in no acute distress. Head/Face: Normocephalic, atraumatic. ENT: Mucous membranes moist. Respiratory: No increased work of breathing, no retractions or nasal flaring. Skin: Warm, dry with normal turgor. Normal color with no rashes, no lesions, and no evidence of cellulitis. 14:44 Eyes: Periorbital structures: erythema, swelling, that is moderate, on the left upper eyelid and left lower eyelid, Pupils: equal, round, and reactive to light and accomodation, Extraocular movements: no acute changes, Conjunctiva: normal, Vital Signs: 13:35 BP 106 / 72; Pulse 73; Resp 16 S; Pulse Ox 99% on R/A; Weight 106.59 kg (R); Height 5 kc6 ft. 3 in. (R); 13:35 Body Mass Index 41.63 (106.59 kg, 160.02 cm) kc6 MDM: 13:04 Medical Screening Exam initiated sb4 14:45 Data reviewed: vital signs, nurses notes, and as a result, I will discharge patient. sb4 Counseling: I had a detailed discussion with the patient and/or guardian regarding the historical points, exam findings, and any diagnostic results supporting the discharge/admit diagnosis, the need for outpatient follow up, an opthalmologist, to return to the emergency department if symptoms worsen or persist or if there are any questions or concerns that arise at home. Administered Medications: No medications were administered Disposition: 03/17 09:04 Co-signature as Attending Physician, Omero Pena MD I reviewed the patient's care rn provided by the Advanced Practice Provider and agree with the diagnosis and treatment plan. Disposition Summary: 03/16/24 13:41 Discharge Ordered Notes: Location: Home sb4 Problem: an ongoing problem sb4 Symptoms: are unchanged sb4 Condition: Stable sb4 Diagnosis - Preseptal celluitis, left eye sb4 Followup: sb4 - With: Kalen Mistry MD - When: 1 week - Reason: Recheck today's complaints, Re-evaluation by your physician Discharge Instructions: - Discharge Summary Sheet sb4 - Preseptal Cellulitis, Adult sb4 Forms: - Antibiotic Education sb4 - Patient Portal Instructions sb4 - Leadership Thank You Letter sb4 Prescriptions: - Augmentin 875-125 mg Oral Tablet - take 1 tablet ORAL route every 12 hours for 10 days; 20 tablet; Refills: 0, sb4 Product Selection Permitted - Erythromycin 5 mg/gram (0.5 %) Ophthalmic ointment - apply 1 ribbon OPHTHALMIC route every 8 hours; 1 Applicator; Refills: 0, sb4 Product Selection Permitted Signatures: Omero Pena MD MD rn Campbell, Kaitlyn, RN RN kc Yun Clayton PA-C PA-C sb4
--- NOTE | 2024-03-16 13:41 | ER ---
Nurse's Notes [facility] Name: Ashley Yen Age: 23 yrs Sex: Female : 2000 Arrival Date: 03/16/2024 Time: 12:57 Bed IW3 Private MD: Diagnosis: Preseptal celluitis, left eye Presentation: 03/16 13:35 Chief complaint: Patient states: left eye swelling upon waking up this AM. Coronavirus kc6 screen: At this time, the client does not indicate any symptoms associated with coronavirus-19. Ebola Screen: No symptoms or risks identified at this time. Onset: The symptoms/episode began/occurred this morning. Anaphylaxis evaluation, no signs or symptoms of anaphylaxis were noted. Initial Sepsis Screen: Does the patient meet any 2 criteria? No. Patient's initial sepsis screen is negative. Does the patient have a suspected source of infection? No. Patient's initial sepsis screen is negative. Risk Assessment: Do you want to hurt yourself or someone else? Patient reports no desire to harm self or others. Onset of symptoms was March 16, 2024. 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 - Infectious Disease History:: Denies. - Social history:: Smoking status: Patient denies any tobacco usage or history of. Screenin:35 Abuse screen: Denies threats or abuse. Denies injuries from another. Nutritional ss screening: No deficits noted. Tuberculosis screening: Never had TB. Assessment: 13:35 General: Appears in no apparent distress. comfortable, Behavior is calm, cooperative. ss Neuro: Level of Consciousness is awake, alert, obeys commands, Oriented to person, place, time, situation. Respiratory: Respiratory effort is even, unlabored, Respiratory pattern is regular, symmetrical. Respiratory: Airway is patent. Derm: Skin is intact, is healthy with good turgor, Skin is pink, warm \T\ dry. normal. Vital Signs: 13:35 BP 106 / 72; Pulse 73; Resp 16 S; Pulse Ox 99% on R/A; Weight 106.59 kg (R); Height 5 kc6 ft. 3 in. (R); 13:35 Body Mass Index 41.63 (106.59 kg, 160.02 cm) kc6 ED Course: 13:00 Patient arrived in ED. ra3 13:00 Yun Clayton PA-C is PHCP. sb4 13:00 Omero Pena MD is Attending Physician. sb4 13:35 Arm band placed on. kc6 13:35 Patient has correct armband on for positive identification. ss 13:36 Triage completed. kc6 13:38 Patient maintains SpO2 saturation greater than 95% on room air. kc6 13:40 Kalen Mistry MD is Referral Physician. sb4 14:14 Cookie Hutchins, RN is Primary Nurse. ss 14:14 No provider procedures requiring assistance completed. Patient did not have IV access ss during this emergency room visit. Administered Medications: No medications were administered Medication: 13:35 VIS not applicable for this client. ss Outcome: 13:41 Discharge ordered by . sb4 14:14 Discharged to home ambulatory, ss 14:14 Condition: good 14:14 Discharge instructions given to patient, Instructed on discharge instructions, follow up and referral plans. medication usage, Demonstrated understanding of instructions, follow-up care, medications, Prescriptions given X 2, 14:15 Patient left the ED. ss Signatures: Cookie Hutchins, RN RN ss Katey Cummins RN RN kc6 Yun Clayton PA-C PA-C sbSisi Coffey ra3 Corrections: (The following items were deleted from the chart) 13:37 13:35 Pulse 73bpm; Resp 16bpm; Spontaneous; Pulse Ox 99% RA; 106.59 kg Reported; Height kc6 5 ft. 3 in. Reported; BMI: 41.6; kc6
[2024-03-16 14:19] VITALS: BP 106/72; O2SAT 99
== END 2024-03-16 14:15 | disposition home or self-care (01) ==
LOC: ER 12:57
DX: L03.213 Periorbital cellulitis (principal)
CPT/HCPCS: 99283

== ENCOUNTER 2024-03-17 09:33 | Emergency (ER) | payer OTHER ==
--- OUTSIDE RECORDS SUMMARY | 2024-03-17 09:36 | XMS REPORT | Continuity of Care Document ---
Author Name Unknown Address [address] [facility] [address] [place] [address] [facility] Address [address] [facility]. [address] [place] [address] Care Team Providers Care Country Director Name Role Phone GINO BROWNE Primary Care Physician Unava ilGino Ashby Attending Clinician Antelmo Pierson Attending Clinician Unavailable SUNSHINE LEON Attending Clinician Unavailable SUNSHINE LEON Attending Clinician Unavailable Sunshine Leon MD Attending Clinician [phone] JEANNETTE SHIRLEY Attending Clinician Unavailable Jeannette Shirley MD Attending Clinician [phone] [email or web address] Attending Clinician UnavailSUSY Cedeno Attending Clinician Unavailable Susy Miller NP Attending Clinician [phone] Nurse, [facility] Attending Clinician Un available Ebrahim [employer] SUPERVISOR, Rania Attending Clinician + [phone] WICHO DIETRICH Attending Clinician Unavailable Doctor Unassigned, [place] Attending Clinician MITCHEL Evans Renetta Attending Clinician Unavailable Teetee Whyte Attending Clinician + [phone] Unknown, Attending Attending Clinician Unavailab TEETEE Alcantara Attending Clinician Unavailab KIMBER Young Attending Clinician Unavailable Kimber Gordillo MD Attending Clinician [phone] Kari Coon RN Attending Clinician + [phone] NIKOLAS HILL Attending Clinician Unavailable Quang Wade MD Attending Clinician [phone] Nikolas Hill DO Attending Clinician [phone] EBER MORA Attending Clinician Unavailable Eber Mora MD Attending Clinician [phone] LOUISE RANDOLPH Attending Clinician Unavailable James Brown DO Attending Clinician [phone] Louise Randolph MD Attending Clinician [phone], [facility] Attending Clinician Unavailable Gino Browne Admitting Clinician SUNSHINE [place] Admitting Clinician Unavailable EBER MORA Admitting Clinician Unavailable Physician, No Primary or Family Admitting Clinic Sunshine Del Toro MD Admitting Clinician [phone] JEANNETTE SHIRLEY Admitting Clinician Unavailable [email or web address]_S Admitting Clinician UnavailSUSY Cedeno Admitting Clinician Unavailable NIKOLAS HILL Admitting Clinician Unavailable Nikolas Hill DO Admitting Clinician [phone] Eber Mora MD Admitting Clinician [phone] Payers Payer Name Policy Type Policy Number Effective Date Expirati on Date Source [employer] [id number] 2018 00:00:00 FORMERLY [facility] MEDICAID [id number] 2020 00:00:00 Problems Condition Name Condition Details Condition Category Status Onset Date Resolution Date Last Treatment Date Treating Clinician Comments Source Acute biliary pancreatit is, unspecifie d complicati on status Acute biliary pancreatit is, unspecifie d complicati on status Disease Active 2020-02 2 00:00: 00 [facility] Severe acute pancreatit is Severe acute pancreatit is Disease Active 2020-02 00:00: 00 [facility] 35 weeks gestation of 35 weeks gestation of Disease Active 2020-02 00:00: 00 [facility] Gall bladder stones Gall bladder stones Disease Active 2020-02 00:00: 00 [facility] Obesity (BMI 30-39.9) Obesity (BMI 30-39.9) Disease Active 7-15 00:00: 00 [facility] Morbid obesity with body mass index of 40.0-49.9 Morbid obesity with body mass index of 40.0-49.9 Disease Resolve d 6-09 00:00: 00 2020-12-31 00:00:00 2020-12-31 09:44:52 [facility] Allergies, Adverse Reactions, Alerts Allergy Name Allergy Type Status Severity Reaction(s) Onset Date Inactive Date Treating Clinician Comments Source No Known Allergie s DA Active U 2023-02 00:00: 00 [facility] No Known Allergie s DA Active U 4- 00:00: 00 [facility] No Known Allergie s DA Active U 4-29 00:00: 00 [facility] NO KNOWN ALLERGIE S Drug Class Active [facility] Social History Social Habit Start Date Stop Date Quantity Comments Source ASSERTION 2023-04-26 00:00:00 [facility] Alcoholic beverage intake 2023-10-26 00:00:00 2023-10-26 00:00:00 Ex-drinker (finding) [facility] Exposure to SARS-CoV-2 (event) 2022-03-29 00:00:00 2022-04-08 11:13:00 Not sure [facility] Alcohol intake 2022-04-08 00:00:00 2022-04-08 00:00:00 Ex-drinker (finding) [facility] Tobacco use and exposure 2021-12-08 00:00:00 2021-12-08 00:00:00 Smokeless tobacco non-user [facility] History of Social function 2021-02-22 00:00:00 2021-02-22 00:00:00 [facility] Education 2021-02-02 00:00:00 2021-02-02 00:00:00 21 [facility] Sex assigned at 1999 00:00:00 2000 00:00:00 [facility] Smoking Status Start Date Stop Date Source Never smoked tobacco [facility] Medications Ordered Medication Name Filled Medication Name Start Date Stop Date Current Medication? Ordering Clinician Indication Dosage Frequency Signature (SIG) Comments Components Source no115/iron/ folic acid ( 19 ORAL) 10-26 00:37: 06 Yes 1{tbl} Take 1 tablet by mouth in the morning. [facility] iopamidol (ISOVUE 370-500 mL) injection 100 mL 04-08 20:30: 00 04-08 20:30 :00 No [id number] 100mL 100 mL, Intravenou s, ONCE, 1 dose, On 04/08/22 at 1430, Routine [facility] ketorolac (TORADOL) injection 30 mg 04-08 19:30: 00 04-08 18:29 :00 No 30mg 30 mg, Slow IV Push, ONCE, 1 dose, On 04/08/22 at 1330, Routine [facility] ketorolac 10 mg tablet 04-08 00:00: 00 Yes [id number] 10mg Take 1 tablet by mouth every 6 (six) hours as needed for Pain (scale 4-6) or Pain (scale 1-3). [facility] famotidine 40 mg tablet 04-08 00:00: 00 04-23 04:59 :00 No [id number] 40mg Take 1 tablet by mouth at bedtime for 14 days. [facility] oseltamivir (TAMIFLU) 75 mg capsule 2021-02 00:00: 00 12-14 05:59 :00 No [id number] 75mg Take 1 capsule by mouth in the morning and 1 capsule in the evening. Do all this for 5 days. [facility] No known medications 02-22 15:34: 24 No [facility] ondansetron (ZOFRAN ODT) 4 mg disintegrat ing tablet 02-05 00:00: 00 Yes [id number] 8mg Take 2 tablets by mouth every 8 (eight) hours as needed for Nausea and Vomiting (N/V). [facility] Immunizations Ordered Immunization Name Filled Immunization Name Date Status Comments Source SARS-COV-2 COVID-19 PFIZER VACCINE 2021-02-05 00:00:00 Completed [facility] SARS-COV-2 COVID-19 PFIZER VACCINE 2021-02-05 00:00:00 Completed [facility] SARS-COV-2 COVID-19 PFIZER VACCINE 2021-02-05 00:00:00 Completed [facility] SARS-COV-2 COVID-19 PFIZER VACCINE 2021-02-05 00:00:00 Completed [facility] SARS-COV-2 COVID-19 PFIZER VACCINE 2021-02-05 00:00:00 Completed [facility] SARS-COV-2 COVID-19 PFIZER VACCINE 2021-02-05 00:00:00 Completed [facility] SARS-COV-2 COVID-19 PFIZER VACCINE 2021-02-05 00:00:00 Completed [facility] SARS-COV-2 COVID-19 PFIZER VACCINE Unknown Completed [facility] SARS-COV-2 COVID-19 PFIZER VACCINE Unknown Completed [facility] SARS-COV-2 COVID-19 PFIZER VACCINE Unknown Completed [facility] Vital Signs Vital Name Observation Time Observation Value Comments S ource Systolic blood pressure 2023-10-27 05:00:00 118 mm[Hg] [facility] Diastolic blood pressure 2023-10-27 05:00:00 65 mm[Hg] [facility] Heart rate 2023-10-27 05:00:00 77 /min [facility] Respiratory rate 2023-10-27 05:00:00 17 /min [facility] Oxygen saturation in Arterial blood by Pulse oximetry 2023-10-27 05:00:00 98 /min [facility] Body temperature 2023-10-27 03:00:00 36.61 Wanda [facility] Body weight 2023-10-27 02:49:00 111.585 kg [facility] BMI 2023-10-27 02:49:00 43.58 kg/m2 [facility] Systolic blood pressure 2023-05-17 13:10:00 169 mm[Hg] [facility] Diastolic blood pressure 2023-05-17 13:10:00 100 mm[Hg] [facility] Heart rate 2023-05-17 13:10:00 81 /min Unive [facility] Body temperature 2023-05-17 13:10:00 37.33 Wanda [facility] Respiratory rate 2023-05-17 13:10:00 22 /min [facility] Body height 2023-05-17 13:10:00 160 cm [facility] Body weight 2023-05-17 13:10:00 111.358 kg [facility] BMI 2023-05-17 13:10:00 43.49 kg/m2 [facility] Oxygen saturation in Arterial blood by Pulse oximetry 2023-05-17 13:10:00 100 /min [facility] Systolic blood pressure 2022-04-08 20:00:00 101 mm[Hg] [facility] Diastolic blood pressure 2022-04-08 20:00:00 74 mm[Hg] [facility] Heart rate 2022-04-08 20:00:00 69 /min [facility] Respiratory rate 2022-04-08 20:00:00 16 /min [facility] Oxygen saturation in Arterial blood by Pulse oximetry 2022-04-08 20:00:00 99 /min [facility] Body temperature 2022-04-08 17:48:00 36.67 Wanda [facility] Body weight 2022-04-08 17:48:00 99.791 kg [facility] BMI 2022-04-08 17:48:00 38.97 kg/m2 [facility] Systolic blood pressure 2022-04-08 17:23:00 120 mm[Hg] [facility] Diastolic blood pressure 2022-04-08 17:23:00 83 mm[Hg] [facility] Heart rate 2022-04-08 17:23:00 77 /min Unive [facility] Body temperature 2022-04-08 17:23:00 37 Wanda [facility] Respiratory rate 2022-04-08 17:23:00 16 /min [facility] Body weight 2022-04-08 17:23:00 99.791 kg [facility] BMI 2022-04-08 17:23:00 38.97 kg/m2 [facility] Oxygen saturation in Arterial blood by Pulse oximetry 2022-04-08 17:23:00 99 /min [facility] Systolic blood pressure 2021-12-08 15:29:00 121 mm[Hg] [facility] Diastolic blood pressure 2021-12-08 15:29:00 83 mm[Hg] [facility] Heart rate 2021-12-08 15:29:00 85 /min Unive [facility] Body temperature 2021-12-08 15:29:00 37.11 Wanda [facility] Respiratory rate 2021-12-08 15:29:00 16 /min [facility] Body height 2021-12-08 15:29:00 160 cm [facility] Body weight 2021-12-08 15:29:00 100.245 kg [facility] BMI 2021-12-08 15:29:00 39.15 kg/m2 [facility] Oxygen saturation in Arterial blood by Pulse oximetry 2021-12-08 15:29:00 97 /min [facility] Systolic blood pressure 2021-02-22 21:33:00 103 mm[Hg] [facility] Diastolic blood pressure 2021-02-22 21:33:00 68 mm[Hg] [facility] Heart rate 2021-02-22 21:33:00 71 /min [facility] Body temperature 2021-02-22 21:33:00 36.28 Wanda [facility] Respiratory rate 2021-02-22 21:33:00 18 /min [facility] Body height 2021-02-22 21:33:00 160 cm [facility] Body weight 2021-02-22 21:33:00 95.165 kg [facility] BMI 2021-02-22 21:33:00 37.16 kg/m2 [facility] Oxygen saturation in Arterial blood by Pulse oximetry 2021-02-22 21:33:00 99 /min [place] [facility] Procedures Procedure Date / Time Performed Performing Clinician Source DELIVERY OF PRODUCTS OF CONCEPTION, EXTERNAL APPRO 2024-01-08 00:00:00 HARAD.01 [facility] FIRST TRIMESTER LESS THAN 14 WEEKS WITH TRANSVAGINAL 2023-05-17 16:21:53 Jeannette Shirley [facility] ABORH CONFIRMATION (LAB ONLY) 2023-05-17 14:48:00 Jeannette Shirley [facility] POCT TEST 2023-05-17 14:04:00 Germaine Shirley [facility] COMP. METABOLIC PANEL ([id number]) 2023-05-17 14:00:00 Jeannette Shirley [facility] TOTAL BETA HCG ASSAY 2023-05-17 14:00:00 Anibal Shirley [facility] CBC WITH DIFF 2023-05-17 14:00:00 Jeannette Shirley [facility] URINALYSIS 2023-05-17 14:00:00 Jeannette Shirley [facility] HB ABO GROUPING 2023-05-17 14:00:00 [facility] LIP[facility] 2022-04-08 18:23:00 Susy Miller [facility] TROPONIN I 2022-04-08 18:23:00 Susy Miller [facility] COMP. METABOLIC PANEL ([id number]) 2022-04-08 18:23:00 Susy Miller [facility] CBC WITH DIFF 2022-04-08 18:23:00 Susy Miller [facility] D-DIMER 2022-04-08 18:23:00 Susy Miller [facility] POCT TEST 2022-04-08 18:23:00 Susy Miller [facility] COVID-19 (ID NOW RAPID TESTING) 2022-04-08 18:23:00 Susy Miller [facility] CONSENT/REFUSAL FOR DIAGNOSIS AND TREATMENT 2022-04-08 17:38:12 Doctor Unassigned, [place] [facility] ASSIGNMENT OF BENEFITS 2022-04-08 17:14:32 Docto r Unassigned, [place] [facility] CONSENT/REFUSAL FOR DIAGNOSIS AND TREATMENT 2021-12-09 00:40:55 Doctor Unassigned, [place] [facility] POCT MOLECULAR FLU 2021-12-08 16:01:00 Unknown, Attend ing [facility] POCT MOLECULAR STREP 2021-12-08 15:27:00 Unknown, Atte sonja [facility] AUTHORIZATION FOR RELEASE OF PHI 2021-01-11 06:01:00 Doctor Unassigned, [place] [facility] [id number] 2019-07-29 00:00:00 [facility] Encounters Start Date/Time End Date/Time Encounter Type Admission Type Attending [facility] Care Facility Care Department Encounter ID Source 2024-01-06 09:30:00 Inpatient Gino Gaming [facility] OBOP [id number] [facility] 2023-10-27 00:37:20 Outpatient P COMB OVIDIO [id number] [facility] 2020-12-30 17:36:03 Outpatient P [facility] OVIDIO [id number] [facility] 2019-07-29 07:30:00 Inpatient Antelmo Richardson [facility] DA[facility] [id number] [facility] 2019-06-09 11:00:00 Inpatient Antelmo Richardson [facility] DAYS [id number] [facility] 2024-01-07 17:26:00 2024-01-09 17:10:00 Inpatient ZOHRA AntonioGino Zee [facility] OBPP [id number] [facility] 2023-12-31 10:09:00 2024-01-05 00:00:00 Outpatient Gino Gaming [facility] OBOP [id number] [facility] 2023-12-28 13:00:00 2023-12-28 13:00:00 Outpatient Gino Gaming OBOP [id number] [facility] 2023-12-14 09:47:00 2023-12-14 09:47:00 Outpatient Gino Gaming [facility] RADI [id number] [facility] 2023-11-28 22:24:00 2023-11-28 23:47:00 Emergency Gino Avitia [facility] LOVE [id number] [facility] 2023-11-02 13:25:00 2023-11-05 00:00:00 Outpatient Gino Gaming [facility] OBOP [id number] [facility] 2023-10-26 21:52:00 2023-10-27 00:10:00 Outpatient P SUNSHINE LEON VIEN [facility] OVIDIO [id number] [facility] 2023-10-26 21:52:00 2023-10-27 00:10:00 Hospital Encounter Sunshine Leon [facility] AT [facility] [id number] 350.1.13.10 4.2.7.2.686 [id number] [facility] 2023-08-31 08:22:00 2023-08-31 08:22:00 Outpatient Gino Gaming [facility] RADI [id number] [facility] 2023-05-17 08:12:00 2023-05-17 12:16:00 Emergency X JEANNETTE SHIRLEY [facility] ERT [id number] [facility] 2023-05-17 08:12:00 2023-05-17 12:16:00 Emergency Jeannette Shirley [facility] 1.2.840.114 350.1.13.10 4.2.7.2.686 [id number] [facility] 2022-12-06 00:00:00 2022-12-06 00:00:00 Outpatient [email or web address] diyala_S [facility] [id number] [facility] 2022-04-08 11:53:00 2022-04-08 14:21:00 Emergency X SUSY MILLER [facility] ERT [id number] [facility] 2022-04-08 11:53:00 2022-04-08 14:21:00 Emergency Susy Miller [facility] 1.840.114 350.1.13.10 4.2.7.2.686 [id number] [facility] 2022-04-08 11:15:00 2022-04-08 11:35:00 Nurse Visit Nurse, [facility] 1..84.114 350.1.13.10 4.2.7.2.686 [id number] [facility] 2022-04-08 11:15:00 2022-04-08 11:15:00 Outpatient WICHO CAN [facility] [id number] [facility] 2022-04-08 00:00:00 2022-04-08 00:00:00 Orders Only Doctor Unassigned, [place] [facility] 1.84.114 350.1.13.10 4.2.7.2.686 [id number] [facility] 2021-12-08 19:41:00 2021-12-08 19:41:00 Emergency X MITCHEL STEWART [facility] ERT [id number] [facility] 2021-12-08 10:20:00 2021-12-08 10:40:00 Urgent Care Lucy Nascimentovianca Sweeney Unknown, Attending [facility] 1..840.114 350.1.13.10 4.2.7.2.686 [id number] [facility] 2021-12-08 10:20:00 2021-12-08 10:20:00 Outpatient R TEETEE NASCIMENTO [facility] [id number] [facility] 2021-12-08 00:00:00 2021-12-08 00:00:00 Letter (Out) Pily Teetee Sweeney [facility] 1..840.114 350.1.13.10 4.2.7.2.686 [id number] [facility] 2021-12-08 00:00:00 2021-12-08 00:00:00 Orders Only Doctor Unassigned, [place] [facility] 1.840.114 350.1.13.10 4.2.7.2.686 [id number] [facility] 2021-02-22 16:30:00 2021-02-22 16:41:12 Outpatient R GUERA KIMBER [facility] [id number] [facility] 2021-02-22 16:30:00 2021-02-22 16:41:12 Office Visit [facility]ord[facility] 1..840.114 350.1.13.10 4.2.7.2.686 [id number] [facility] 2021-02-22 00:00:00 2021-02-22 00:00:00 Orders Only Doctor Unassigned, [place] [facility] 1.2840.114 350.1.13.10 4.2.7.2.686 [id number] [facility] 2021-02-07 00:00:00 2021-02-07 00:00:00 Transition of Care Kari Coon 1.114 350.1.13.10 4.2.7.2.686 [id number] [facility] 2021-02-07 00:00:00 2021-02-07 00:00:00 Patient Secure Msg Doctor Unassigned, [place] [facility] 1..114 350.1.13.10 4.2.7.2.686 [id number] [facility] 2021-02-02 00:42:00 2021-02-05 11:50:00 Inpatient X NIKOLAS HILL [facility] CALLY [id number] [facility] 2021-02-02 00:42:00 2021-02-05 11:50:00 Hospital Encounter Jeannette Shirley Jelani Morris, David [facility] 1..114 350.1.13.10 4.2.7.2.686 [id number] [facility] 2021-02-02 00:42:00 2021-02-05 11:50:00 Inpatient X NIKOLAS HILL [facility] CALLY [id number] [facility] 2021-01-11 00:00:00 2021-01-11 00:00:00 Orders Only Doctor Unassigned, [place] [facility] 1.114 350.1.13.10 4.2.7.2.686 [id number] [facility] 2020-12-29 04:21:00 2020-12-30 17:00:00 Outpatient P EBER MORA [facility] OVIDIO [id number] [facility] 2020-12-29 04:21:00 2020-12-30 17:00:00 Hospital Encounter Eber Mora [facility] 1..114 350.1.13.10 4.2.7.2.686 [id number] [facility] 2020-07-23 13:00:00 2020-07-23 13:00:00 Outpatient R MANISHLOUISE [facility] [id number] [facility] 2020-04-27 00:00:00 2020-04-27 00:00:00 Patient Outreach Kevin James Lambertan [facility] 1.2.840.114 350.1.13.10 4.2.7.2.686 [id number] [facility] 2019-11-21 09:00:00 2019-11-21 09:00:00 Outpatient R MANISH LOUISE [facility] [id number] [facility] 2019-09-05 00:00:00 2019-09-05 00:00:00 Refill AdLouise edmond [facility] 1.2.840.114 350.1.13.10 4.2.7.2.686 [id number] [facility] 2019-08-20 14:31:24 2019-08-20 14:46:24 Tone Regulator Visit 2, Adc Lab AdLouise edmond [facility] 1.2.840.114 350.1.13.10 4.2.7.2.686 [id number] [facility] 2019-08-20 13:06:07 2019-08-20 14:20:18 Office Visit Louise Randolph [facility] 1.2.840.114 350.1.13.10 4.2.7.2.686 [id number] [facility] 2019-08-20 13:00:00 2019-08-20 13:00:00 Outpatient R MANISH [facility] [id number] [facility] 2019-08-20 00:00:00 2019-08-20 00:00:00 Orders Only Doctor Unassigned, [place] [facility] 1.2.840.114 350.1.13.10 4.2.7.2.686 [id number] [facility] 2019-07-24 13:53:00 2019-07-24 13:53:00 Outpatient Antelmo Richardson [facility]AC[facility] LABO [id number] [facility] 2019-07-22 13:05:27 2019-07-22 14:26:35 Office Visit Adum, Louise [facility] 1.2.840.114 350.1.13.10 4.2.7.2.686 [id number] 2019-07-22 13:05:27 2019-07-22 14:26:35 Office Visit Adum, Louise [facility] 1.2.840.114 350.1.13.10 4.2.7.2.686 [id number] [facility] 2019-07-22 13:00:00 2019-07-22 13:00:00 Out[facility] [facility] [id number] [facility] 2019-07-18 10:38:49 2019-07-18 10:53:49 Tone Regulator Visit 2, Adc Lab AdumLouise [facility] [id number] [facility] 2019-07-18 10:45:00 2019-07-18 10:45:00 Outpatient R [facility] [id number] [facility] 2019-07-15 15:00:00 2019-07-15 15:00:00 Outpatient R LOUISE RANDOLPH [facility] [id number] [facility] 2019-06-04 17:57:00 2019-06-04 17:57:00 Outpatient Antelmo Richardson HCACL LABO [id number] [facility] Results Test Description Test Time Test Comments Results Result Co mments Source AG HEPATITIS B [id number] 20:21:00* Test Item Value Reference Range Interpretation Comme nts AG HEPATITIS B SURFACE (test code = HBSAG) NON REACTIVE NONREACTIVE AB HEPATITIS C [id number] 20:21:00* Test Item Value Reference Range Interpretation Comme nts AB HEPATITIS C (test code = HCVAB) NONREACTIVE NONREACTIVE SIGNAL TO CUTOFF (test code = CUTOFF) 0.08 <0.80 N AB [id number] 20:21:00* Test Item Value Reference Range Interpretation Comme nts AB TREPONEMA (test code = TREPAB) NONREACTIVE NONREACTIVE AB HIV 1 20:21:00* Test Item Value Reference Range Interpretation Comme nts AB HIV 1 2 (test code = KUM20JQ) NONREACTIVE NONREACTIVE Done by [employer] 4[employer] Gen HIV Ag/Ab Combo Screen CBC W/AUTO [id number] 17:59:00* Test Item Value Reference Range Interpretation [...] code = BA#) 0.0 K/mm3 RUPTURE OF [id number] 17:10:00* Test Item Value Reference Range Interpretation Comme nts RUPTURE OF MEMBRANES (test c ode = ROM) RUPTURED URINALYSIS [id number] 23:37:00* Test Item Value Reference Range Interpretation [...] FIRST TRIMESTER LESS THAN 14 WEEKS WITH [id number] 16:27:52HISTORY: ?Rule out ectopic. TECHNIQUE: Both transabdominal [...] and fluid in the cul-de-sac, consistent withphysiologic changes.[facility] ([facility] Only)2023-05-17 15:02:00* Test Item Value Reference Range Interpretation Comme [facility] ABO & RH (test code = 20) B Positive [facility] BHCG (QUANTITATIVE)2023-05-17 14:55:33* Test Item Value Reference Range Interpretation Comme nts BETA HCG (test code = 1434752745) 4504.90 See_Comment [Automated [employer]] The system which generated this result transmitted reference range: Non- female and male patients: <5 mIU/mL. The reference range was not used to interpret this result as normal/abnormal. SATYA (test code = SATYA) Gestational Age ?Range (mIU/mL) 1-10 ?Weeks ?[id number] Weeks ?09104-33556729-09 Weeks ?0447-39881788-73 Weeks ?7161-209882 Biotin has been reported to cause a negative bias, interpret results relative to patient's use of biotin. [facility]. MET[facility]OLIC PANEL (56781)2023-05-17 14:38:17* Test Item Value Reference Range Interpretation Comme nts NA (test code = 3654225791) 138 mmol/L 135-145 K (test code = 1839860987) 3.8 mmol/L 3.5-5.0 CL (test code = 3805405802) 107 mmol/L 98-108 CO2 TOTAL (test code = 6015414247) 24 mmol/L 23-31 AGAP (test code = 9618720483) 7 2-16 BUN (test code = 9001703165) 7 mg/dL 7-23 GLUCOSE (test code = 5801705857) 98 mg/dL 70-110 CREATININE (test code = 2160-0) 0.66 mg/dL 0.50-1.04 TOTAL BILI (test code = 0771473219) 0.4 mg/dL 0.1-1.1 CALCIUM (test code = 8059126286) 9.1 mg/dL 8.6-10.6 T PROTEIN (test code = 6264797699) 7.5 g/dL 6.3-8.2 ALBUMIN (test code = 2050740339) 4.1 g/dL 3.5-5.0 ALK PHOS (test code = 0380180857) 66 U/L 34-122 ALTv (test code = 1742-6) 24 U/L 5-35 AST(SGOT) (test code = 2435034869) 33 U/L 13-40 eGFR (test code = 38039-7) 126.6 mL/min/1.73m2 CKD-EPI eGFR (20 21). Assuming creatinine has been stable day-to-day for at least three months, the eGFR indicates Category G1 (>= 90 mL/min/1.73 m2) [facility] WITH [id number] 14:22:50* Test Item Value Reference Range Interpretation [...] 32.2 g/dL 31.6-35.1 RDW-SD (test code = 34563-3) 44.8 fL 39.0-49.9 RDW-CV (test code = 788-0) 14.8 % 12.0-15.5 PLT (test code = 777-3) 483 166-358 H MPV (test code = 11904-4) 10.2 fL 9.5-12.9 NRBC/100 WBC (test code = 8137465163) 0.0 0.0-10.0 NRBC x10^3 (test code = 5357681262) See_Comment [Automated messa ge] The system which generated this result transmitted reference range: 10*3/?L. The reference range was not used to interpret this result as normal/abnormal. GRAN MAT (NEUT) % (test code = 770-8) 77.1 % IMM GRAN % (test code = 3036351387) 0.50 % LYMPH % (test code = 736-9) 16.8 % MONO % (test code = 5905-5) 3.8 % EOS % (test code = 713-8) 1.1 % BASO % (test code = 706-2) 0.7 % GRAN MAT x10^3(ANC) (test code = 2675028101) 9.45 10*3/uL 1.88-7.09 H IMM GRAN x10^3 (test code = 0891274953) 0.06 10*3/uL 0.00-0.06 LYMPH x10^3 (test code = 731-0) 2.06 10*3/uL 1.32-3.29 MONO x10^3 (test code = 742-7) 0.46 10*3/uL 0.33-0.92 EOS x10^3 (test code = 711-2) 0.13 10*3/uL 0.03-0.39 BASO x10^3 (test code = 704-7) 0.08 10*3/uL 0.01-0.07 H Lab Interpretation (test code = 13088-6) Abnormal [facility] and Screen - ONCE [id number] 14:20:00 * Test Item Value Reference Range Interpretation Comme nts ABO & RH (test code = 20) B POSITIVE IAT (test code = 1185) Negative [facility] HospitalPOCT [id number] 14:04:00* Test Item Value Reference Range Interpretation Comme nts POCT PREG (test code = 1605) Positive On board controls acceptable with C Line (test code = 3574) Yes POCT PREG LOT # (test code = 3575) [id number] POCT PREG TEST DATE ( test code = 3576) 2024-03-14 Lab Interpretation (test cod e = 66042-4) Normal [facility] HospitalD-[id number] 19:01:00* Test Item Value Reference Range Interpretation Comments D-DIMER (test code = 6908193210) 0.51 See_Comment H [Automated message] The system which generated this result transmitted reference range: <0.41 ?g/mL (FEU). The reference range was not used to interpret this result as normal/abnormal. SAYTA (test code = SATYA) This test may [...] a diagnosis. Lab Interpretation (test code = 87509-6) Abnormal [facility] HospitalTROPONIN [id number] 19:00:40* Test Item Value Reference Range Interpretation Comme nts TROPONIN I (test code = 5037741377) 0.004 ng/mL <=0.034 SATYA (test code = [...] of biotin. Lab Interpretation (test code = 81511-5) Normal [facility] HospitalCOM. METABOLIC PANEL (08690)2022-04-08 18:49:38* Test Item Value Reference Range Interpretation Comme nts NA (test code = 6474048005) 140 mmol/L 135-145 K (test code = 8241562705) 4.5 mmol/L 3.5-5.0 CL (test code = 7814381763) 105 mmol/L 98-108 CO2 TOTAL (test code = 2230865486) 25 mmol/L 23-31 AGAP (test code = 0515354751) 10 2-16 BUN (test code = 8685594967) 9 mg/dL 7-23 GLUCOSE (test code = 3256899871) 62 mg/dL 70-110 L CREATININE (test code = 6155860344) 0.61 mg/dL 0.50-1.04 TOTAL BILI (test code = 7969760924) 0.5 mg/dL 0.1-1.1 CALCIUM (test code = 1080217932) 9.0 mg/dL 8.6-10.6 T PROTEIN (test code = 7977148617) 7.3 g/dL 6.3-8.2 ALBUMIN (test code = 4606710419) 4.2 g/dL 3.5-5.0 ALK PHOS (test code = 1140813399) 78 U/L 34-122 ALTv (test code = 1742-6) 21 U/L 5-35 AST(SGOT) (test code = 2579592802) 24 U/L 13-40 eGFR (test code = 3127037538) 122.6 mL/min/1.73m2 SATYA (test code = SATYA) [...] imaging tests). Lab Interpretation (test code = 59734-5) Abnormal [facility] HospitalLIPASE2023-03-04 18:48:57* Test Item Value Reference Range Interpretation Comme nts LIPASE (test code = 5945457766) 58 U/L 0-220 Lab Interpretation (test cod e = 50073-2) Normal [facility] HospitalCB WITH [id number] 18:35:56* Test Item Value Reference Range Interpretation [...] 32.1 g/dL 31.6-35.1 RDW-SD (test code = 66893-2) 43.2 fL 39.0-49.9 RDW-CV (test code = 788-0) 14.5 % 12.0-15.5 PLT (test code = 777-3) 481 See_Comment H [Automated messa ge] The system which generated this result transmitted reference range: 166 - 358 10*3/?L. The reference range was not used to interpret this result as normal/abnormal. MPV (test code = 51291-8) 10.2 fL 9.5-12.9 NRBC/100 WBC (test code = 0114070515) 0.0 See_Comment [Automated [employer] ssage] The system which generated this result transmitted reference range: 0.0 - 10.0 /100 WBCs. The reference range was not used to interpret this result as normal/abnormal. NRBC x10^3 (test code = 3288202295) See_Comment [Automated messa ge] The system which generated this result transmitted reference range: 10*3/?L. The reference range was not used to interpret this result as normal/abnormal. GRAN MAT (NEUT) % (test code = 770-8) 66.4 % IMM GRAN % (test code = 0780245712) 0.60 % LYMPH % (test code = 736-9) 23.8 % MONO % (test code = 5905-5) 7.5 % EOS % (test code = 713-8) 1.2 % BASO % (test code = 706-2) 0.5 % GRAN MAT x10^3(ANC) (test code = 3974499734) 7.74 10*3/uL 1.88-7.09 H IMM GRAN x10^3 (test code = 4228702645) 0.07 10*3/uL 0.00-0.06 H LYMPH x10^3 (test code = 731-0) 2.77 10*3/uL 1.32-3.29 MONO x10^3 (test code = 742-7) 0.88 10*3/uL 0.33-0.92 EOS x10^3 (test code = 711-2) 0.14 10*3/uL 0.03-0.39 BASO x10^3 (test code = 704-7) 0.06 10*3/uL 0.01-0.07 Lab Interpretation (test code = 64828-4) Abnormal [facility] [id number] 18:23:00* Test Item Value Reference Range Interpretation Comme nts POCT PREG (test code = 1605) Negative On board controls acceptable with C Line (test code = 3574) Present POCT PREG LOT # (test code = 3575) [facility] [id number] POCT PREG TEST DATE ( test code = 3576) 07/06/2023 Lab Interpretation (test cod e = 79626-2) Normal [facility] MOLECULAR [id number] 16:05:46* Test Item Value Reference Range Interpretation Comme nts POCT Molecular FluA (test co de = 07193-4) Positive Negative A Lab Interpretation (test cod e = 87930-5) Abnormal [facility] MOLECULAR [id number] 15:34:18* Test Item Value Reference Range Interpretation Comme nts POCT Molecular Strep (test c ode = 94812-0) Negative Negative Lab Interpretation (test cod e = 12362-2) Normal [facility] W/AUTO [id number] 05:19:00* Test Item Value Reference Range Interpretation [...] = NRBC#) 0.00 K/mm3 0.0-0.1 N URINALYSIS [id number] 20:30:00* Test Item Value Reference Range Interpretation [...] NONE SEEN #/HPF NONE Urine Source? Clean [id number] 16:26:00 RUN DATE: 07/30/19 [facility] - Lab PAGE 1 RUN TIME: 1626 Specimen Inquiry RUN USER: INTERFACE SAMANTHA TIENT: ANGELA LAICCT #: [id number] LOC: AFSANEH #: [id number] AGE/SX: ROOM: [facility] RE07/29/19REG DR: Antelmo Richardson MD : 99 BED: A DIS: STATUS: ADM IN TLOC: SPEC #: [id number] RECD: 07/29/19 STATUS: [facility] #: [id number] ESTHER: 07/29/19- SUBM DR: Antelmo Richardson MD ENTERED: 07/29/19 SP TYPE: STOMACH OTHR DR: No Primary or Family Physician Dylan Tucker MDORDERED: GROSS COPIES TO: No Primary or Family Physician Atnelmo Richardson MD [address] [place], [place] [address] Dylan Tucker MD [address] [address] [place] [address] PROCEDURES: GROSS (07/30/19-113) TISSUES: STOMACH, NOS - PORTION OF STOMACH CLINICAL HISTORY COLLECTION DATE: 07/29/19 MORBID OBESITY FINAL DIAGNOSIS Portion of stomach, laparoscopic sleeve gastrectomy: PORTION OF STOMACH, NO PATHOLOGIC ALTERATION DMW/sm D 21934 MACROSCOPIC The specimen is received in formalin labeled with the patient's name, "portion of stomach" and consists of a sleeve gastrectomy specimen measuring 17.5 by up to 4.5 cm with a wall thickness up to 0.5 cm. The mucosal edge is stapled closed. A minimal amountof unremarkable yellow fatty tissue is CONTINUED ON NEXT PAGE RUN DATE: 07/30/19 [facility] PAGE 2 RUN TIME: 6 Specimen Inquiry RUN USER: INTERFACE SPEC #: [id number] PATIENT: GEM LAI #[id number] (Continued) MACROSCOPIC (Continued) attached to the opposite surface. The mucosal surface is dark pink with unremarkable folds. No areas of ulceration, nodules or masses are seen. [employer] tissue is submitted in a single cassette. GROSS PERFORMED AT [facility] [address] [place] [address] [phone] MICROSCOPIC All of the stains, including any controls performed, stain appropriately. MICROSCOPIC PERFORMED AT [facility] [address] [facility], [place] [address] (p)[phone] PERFORMING SITE Diagnosis performed at: [facility] [address] [facility], [place] [address] Signed SIGNATURE ON FILE Tayler Brooks MD 07/30/19 1626 END OF REPORT BASIC METABOLIC [id number] 07:04:00* Test Item Value Reference Range Interpretation [...] CA) 9.0 mg/dL 8.5-10.1 N BASIC METABOLIC [id number] 06:56:00* Test Item Value Reference Range Interpretation [...] code = CA) mg/dL 8.5-10.1 CBC W/AUTO [id number] 05:46:00* Test Item Value Reference Range Interpretation [...] REQUIRED (test c ode = MDIFF) NO [id number] 06:31:00* Test Item Value Reference Range Interpretation Comme nts GLUBED (test code = GLUBED) 92 mg/dL 74-106 N Performed by cer tified central control room operator at [facility] Novel Coronavirus 2019 [id number] 02:35:00* Test Item Value Reference Range Interpretation Comme nts Novel Coronavirus 2019 Inhou se (test code = COVNONPUI) Negative Negative Testing Criteria: Preprocedure ScreeningNovel Coronavirus 2019 Ikcbens7966-91-48 02:35:00* Test Item Value Reference Range Interpretation Comme nts Novel Coronavirus 2019 Inhou se (test code = COVNONPUI) Negative Negative Testing Criteria: Preprocedure Screening- XR CHEST 2 [id number] 10:40:00FAX: Y Atnelmo Richardson MD [phone] [place]: O St: PRE Name: GEM LAI [facility] : 2000 Age/S: 18/F [address] [facility] Unit #: [id number] Loc: [place] [address] Phys: Antelmo Richardson MD Acct: [id number] Dis Date: Status: PRE IN PHONE #: [phone] Exam Date: 07/24/2019 0955 FAX #: [phone] Reason: PRE OP EXAMS: CPT CODE: [id number] XR CHEST 2 V 21597 REASON FOR EXAM: PRE OP Exam Order Date: 07/24/2019 9:10 AM Ordering M.D.: Antelmo Richardson MD PROCEDURE: - XR CHEST [...] limits. IMPRESSION: No acute cardiopulmonary process. Location: [facility] at 1040 Reported and signed by: Vikas Callaway MD CC: Antelmo Richardson MD Technologist: RT MAGDALENA(Francheska) Trnscrd Rosa ate/Time/By: 07/24/2019 (1040) : By: [email or web address] Orig Print D/T: S: 07/24/2019 (7545) PAGE 1 SignedReportCOMPREHENSIVE METABOLIC [id number] 10:26:00* Test Item Value Reference Range Interpretation [...] ALKP) 83 IUnit/L 37-107 N HCG SERUM [id number] 10:23:00* Test Item Value Reference Range Interpretation [...] MIU/ML IS THIS PATIENT ? NOCOMPREHENSIVE METABOLIC [id number] 10:18:00* Test Item Value Reference Range Interpretation [...] test code = ALKP) IUnit/L 37-107 PROTHROMBIN [id number] 10:14:00* Test Item Value Reference Range Interpretation [...] (2.5-3.5) IS PATIENT ON ANTICOAGULANTS? NTHROMBOPLASTIN TIME [id number] 10:14:00* Test Item Value Reference Range Interpretation Comme nts THROMBOPLASTIN TIME PARTIAL (test code = PTT) 42.3 seconds 23.0-37.0 H IS PATIENT ON ANTICOAGULANTS? NURINALYSIS [id number] 10:11:00* Test Item Value Reference Range Interpretation [...] FEW #/LPF FEW Urine Source? Clean CatchURINALYSIS [id number] 10:07:00* Test Item Value Reference Range Interpretation [...] HPF NONE Urine Source? Clean CatchCBC W/AUTO [id number] 10:04:00* Test Item Value Reference Range Interpretation [...] result is a direct measurement.========= HEPATIC FUNCTION [id number] 19:07:00* Test Item Value Reference Range Interpretation [...] ALKP) 99 IUnit/L 37-107 N HCG SERUM [id number] 19:07:00* Test Item Value Reference Range Interpretation Comme nts HCG SERUM QUAL (test code = HCGQL) NEGATIVE NEGATIVE This HCGQL test is NOT applicable for MALE patients.Check with nurse about probable order error.If Tumor Marker Test needed, nurse should order test "HCGTU"(Test #550.22566) VITAMIN [id number] 19:07:00* Test Item Value Reference Range Interpretation Comme nts VITAMIN B12 (test code = VITB12) 446 pg/mL 193-986 N FOLIC [id number] 19:07:00* Test Item Value Reference Range Interpretation Comme nts FOLIC ACID (test code = FOL) 15.8 ng/mL 3.10-17.50 N THYROID PROFILE [id number] 19:07:00* Test Item Value Reference Range Interpretation [...] mIU/mL HYPER : < 0.35 mIU/mL T4 [id number] 19:07:00* Test Item Value Reference Range Interpretation Comme nts T4 FREE (test code = T4F) 1.04 ng/dL 0.76-1.46 N VIT B1 WHOLE [id number] 19:07:00* Test Item Value Reference Range Interpretation Comme nts VIT B1 WHOLE BLOOD (test code = NKWZ0FE) 125.5 nmol/L 66.5-200.0 Performed At: [facility] [id number] Sanjai MD Ph:[phone] T3 [id number] 06:08:00* Test Item Value Reference Range Interpretation Comme nts T3 FREE (test code = T3F) 3.4 pg/mL 2.3-5.0 Performed At: [facility] [id number] Kyle L MD Ph:[phone] Novel Coronavirus 13:12:00* Test Item Value Reference Range Interpretation Comme nts Novel Coronavirus 2019 Inhouse (test code = IDVLO56KT) Negative Negative Positive resul ts are indicative of the presence ttKGTW-XvO-3 RNA, clinical correlation with patient historyand other [...] for the identification of SARS-CoV-2 RNA usingthe ascentify000 System under the FDA Emergency UseAuthorization. The testing is performed by personneltrained in the procedures for the [employer] M2000 moleculardiagnostic SARS-CoV-2 assay in vitro. Testing Criteria: Preprocedure ScreeningNovel Coronavirus 13:11:00* Test Item Value Reference Range Interpretation Comme nts Novel Coronavirus 2019 Inhouse (test code = OHADH89FG) Negative Negative Positive resul ts are indicative of the presence sjDISC-KdQ-0 RNA, clinical correlation with patient historyand other [...] for the identification of SARS-CoV-2 RNA usingthe ascentify000 System under the FDA Emergency UseAuthorization. The testing is performed by personneltrained in the procedures for the ascentify000 moleculardiagnostic SARS-CoV-2 assay in vitro. Testing Criteria: Preprocedure ScreeningAB HIV 1 13:33:00* Test Item Value Reference Range Interpretation Comme nts AB HIV 1 2 (test code = XMD29UO) Nonreactive NonReactive It is recognized that currently available assays for thedetection of antibodies to HIV-1 and/or HIV-2 may notdetect all infected individuals. A negative test result doesnot exclude the possibility of exposure to or infection withHIV. HIV antibodies may be undetectable in some stages ofthe infection and in some clinical conditions. AB HELICOBACTER [id number] 12:21:00* Test Item Value Reference Range Interpretation [...] result is a direct measurement.========= HEPATIC FUNCTION [id number] 12:13:00* Test Item Value Reference Range Interpretation [...] ALKP) 99 IUnit/L 37-107 N HCG SERUM [id number] 12:13:00* Test Item Value Reference Range Interpretation Comme nts HCG SERUM QUAL (test code = HCGQL) NEGATIVE NEGATIVE This HCGQL test is NOT applicable for MALE patients.Check with nurse about probable order error.If Tumor Marker Test needed, nurse should order test "HCGTU"(Test #550.84460) VITAMIN [id number] 12:13:00* Test Item Value Reference Range Interpretation Comme nts VITAMIN B12 (test code = VITB12) 446 pg/mL 193-986 N FOLIC [id number] 12:13:00* Test Item Value Reference Range Interpretation Comme nts FOLIC ACID (test code = FOL) 15.8 ng/mL 3.10-17.50 N THYROID PROFILE [id number] 12:13:00* Test Item Value Reference Range Interpretation [...] mIU/mL HYPER : < 0.35 mIU/mL T4 [id number] 12:13:00* Test Item Value Reference Range Interpretation Comme nts T4 FREE (test code = T4F) 1.04 ng/dL 0.76-1.46 N VIT B1 WHOLE [id number] 12:13:00* Test Item Value Reference Range Interpretation Comme nts VIT B1 WHOLE BLOOD (test cod e = NBKM0RI) nmol/L 87-280 [id number] 11:51:00* Test Item Value Reference Range Interpretation Comme nts GLYCOSYLATED HEMOGLOBIN (HA1C) (test code = GLYHGB) 5.7 % HbA1 SUGGESTED DIAGNO SIS: HbA1C (%) ----- Diabetic >6.4Prediabetes 5.7 - 6.4Normal <5.7 ESTIMATED AVERAGE GLUCOSE (test code = EAG) 117 MG/DL COMPREHENSIVE METABOLIC [id number] 11:42:00* Test Item Value Reference Range Interpretation [...] code = LDL) mg/dL 100-129 HEPATIC FUNCTION [id number] 11:40:00* Test Item Value Reference Range Interpretation [...] code = ALKP) IUnit/L 37-107 HCG SERUM [id number] 11:40:00* Test Item Value Reference Range Interpretation Comme nts HCG SERUM QUAL (test code = HCGQL) NEGATIVE NEGATIVE This HCGQL test is NOT applicable for MALE patients.Check with nurse about probable order error.If Tumor Marker Test needed, nurse should order test "HCGTU"(Test #550.99612) VITAMIN [id number] 11:40:00* Test Item Value Reference Range Interpretation Comme [facility] VITAMIN B12 (test code = VITB12) pg/mL 193-986 FOLIC [id number] 11:40:00* Test Item Value Reference Range Interpretation Comme [facility] FOLIC ACID (test code = FOL) ng/mL 3.10-17.50 THYROID PROFILE [id number] 11:40:00* Test Item Value Reference Range Interpretation Comme [facility] T3 UPTAKE (test code = T3UP) % 30.0-40.0 T4 (THYROXINE) (test code = T4) ug/dL 4.5-13.9 T7 (FREE THYROXINE INDEX) (t est code = T7) FTI 1.3-5.1 THYROID STIMULATING HORMONE (test code = TSH) uIU/mL 0.36-3.74 T4 [id number] 11:40:00* Test Item Value Reference Range Interpretation Comme [facility] T4 FREE (test code = T4F) ng/dL 0.76-1.46 VIT B1 WHOLE [id number] 11:40:00* Test Item Value Reference Range Interpretation Comme [facility] VIT B1 WHOLE BLOOD (test cod e = XSDF7WM) nmol/L 87-280 PROTHROMBIN [id number] 11:40:00* Test Item Value Reference Range Interpretation Comme [facility] PROTHROMBIN TIME PATIENT (test code = [...] (2.5-3.5) IS PATIENT ON ANTICOAGULANTS? NTHROMBOPLASTIN TIME [id number] 11:40:00* Test Item Value Reference Range Interpretation Comme nts THROMBOPLASTIN TIME PARTIAL (test code = PTT) 42.5 seconds 23.0-37.0 H IS PATIENT ON ANTICOAGULANTS? NCOMPREHENSIVE METABOLIC [id number] 11:35:00 * Test Item Value Reference Range [...] code = ALKP) IUnit/L 37-107 CBC W/AUTO [id number] 11:27:00* Test Item Value Reference Range Interpretation [...] code = BA#) K/mm3 0.0-0.2 CBC W/AUTO [id number] 11:27:00* Test Item Value Reference Range Interpretation [...] = NRBC#) 0.00 K/mm3 0.0-0.1 N URINALYSIS [id number] 11:24:00* Test Item Value Reference Range Interpretation [...] TO CULTUREUrine Source? Voided- XR CHEST 2 [id number] 10:40:00FAX: Antelmo Armando MD [phone] [place]: O St: PRE Name: GEM LAI [facility] : 2000 Age/S: 18/F [address] [facility] Unit #: [id number] Loc: [place] [address] Phys: Antelmo Richardson MD Acct: [id number] Dis Date: Status: PRE SDC PHONE #: [phone] Exam Date: 06/04/2019 1000 FAX #: [phone] Reason: PRE OP EXAMS: CPT CODE: [id number] XR CHEST 2 V 71413 REASON FOR EXAM: PRE OP Exam Order Date: 06/04/2019 9:44 AM Ordering M.D.: Antelmo Richardson MD PROCEDURE: - XR CHEST 2 V COMPARISON: None FINDINGS: The lungs are clear. There is no pleural effusion or pneumothorax. Pulmonary vascularity is within normal limits. Cardiomediastinal silhouette is normal in size for technique. The mediastinal contours are within normal limits. Musculoskeletal structures are within normal limits. Thevisualized upper abdomen is within normal limits. IMPRESSION: No acute cardiopulmonary process. Location: [facility] at 1040 Reported and signed by: Vikas Callaway MD CC: Antelmo Richardson MD Technologist: RT MAGDALENA(R) Trnscrd Date/Time/By: (1040) : By: [id number] Orig Print D/T: S: 06/04/2019 ([id number]) PAGE 1 Signed Report
--- NOTE | 2024-03-17 09:57 | EDPHYS ---
Physician Documentation [facility] Name: Ashley Yen Age: 23 yrs Sex: Female : 2000 Arrival Date: 03/17/2024 Time: 09:33 Bed IW1 Private MD: ED Physician Steve Vanegas HPI: 03/17 10:05 This 23 yrs old Female presents to ER via Ambulatory with complaints of Eye rt Problem. 10:05 Patient was seen in the ED yesterday, diagnosed with a preseptal cellulitis after an rt injury where some very splashed to her eyelid. She was prescribed Augmentin, erythromycin ointment. Patient has taken 2 doses of the Augmentin, after putting on the erythromycin ointment, she noted that her eye swelling has gotten worse to the point where she cannot open up her eye. She states this has improved and she cannot open up her eye currently. Denies other acute complaints at this time, symptoms are mild in severity, no other aggravating or alleviating factors.. 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 - Infectious Disease History:: Denies. - Social history:: Smoking status: Patient denies any tobacco usage or history of. - Family history:: not pertinent. ROS: 10:05 Constitutional: Negative for fever, chills, and weight loss, Cardiovascular: Negative rt for chest pain, palpitations, and edema, Respiratory: Negative for shortness of breath, cough, wheezing, and pleuritic chest pain, Abdomen/GI: Negative for abdominal pain, nausea, vomiting, diarrhea, and constipation, Skin: Negative for injury, rash, and discoloration, 10:05 Eyes: Positive for pain, swelling, 10:05 Neck: Exam: 10:05 Constitutional: This is a well developed, well nourished patient who is awake, alert, rt and in no acute distress. Head/Face: Normocephalic, atraumatic. Skin: Warm, dry with normal turgor. Normal color with no rashes, no lesions, and no evidence of cellulitis. MS/ Extremity: Pulses equal, no cyanosis. Neurovascular intact. Full, normal range of motion. 10:05 Eyes: Extraocular muscles are intact, no conjunctival injection, mild preseptal cellulitis noted with mild edema. No discharge noted, however, there is slight impetiginous changes at the lower eyelid. Vital Signs: 09:47 BP 138 / 105; Pulse 51; Resp 16; Temp 97.3; Pulse Ox 100% on R/A; Weight 106.59 kg; iw Height 5 ft. 3 in. ; 09:47 Body Mass Index 41.63 (106.59 kg, 160.02 cm) iw MDM: 09:49 Medical Screening Exam initiated rt 10:05 Differential diagnosis: Preseptal cellulitis, impetigo. Data reviewed: vital signs, rt nurses notes. Test considered but Not performed: CT: No signs of orbital cellulitis, drainable abscess, CT scan is not indicated. Counseling: I had a detailed discussion with the patient and/or guardian regarding the historical points, exam findings, and any diagnostic results supporting the discharge/admit diagnosis, the need for outpatient follow up, to return to the emergency department if symptoms worsen or persist or if there are any questions or concerns that arise at home. Administered Medications: No medications were administered Disposition Summary: 03/17/24 09:57 Discharge Ordered Notes: Location: Home rt Problem: an ongoing problem rt Symptoms: are unchanged rt Condition: Stable rt Diagnosis - Preseptal cellulitis rt Followup: rt - With: Private Physician - When: 2 - 3 days - Reason: Discharge Instructions: - Discharge Summary Sheet rt - Preseptal Cellulitis, Adult rt Forms: - Medication Reconciliation Form rt - Antibiotic Education rt - Prescription Opioid Use rt - Patient Portal Instructions rt - Leadership Thank You Letter rt Prescriptions: - Vigamox 0.5 % Ophthalmic Drops - instill 1 drop OPHTHALMIC route every 8 hours for 7 days; 5 milliliter; rt Refills: 0, Product Selection Permitted - Prednisone 20 mg Oral Tablet - take 2 tablets ORAL route once daily for 5 days; 10 tablet; Refills: 0, Product rt Selection Permitted Signatures: Krissy Ellsworth RN RN iw Steve Vanegas MD MD rt
--- NOTE | 2024-03-17 09:57 | ER ---
Nurse's Notes [facility] Name: Ashley Yen Age: 23 yrs Sex: Female : 2000 Arrival Date: 03/17/2024 Time: 09:33 Bed IW1 Private MD: Diagnosis: Preseptal cellulitis Presentation: 03/17 09:45 Chief complaint: Patient states: was here yesterday for same thing except the eye iw wasn't swollen shut, I put the ointment on last night and it got real red and swollen , the ointment made my eyeball swell up. Coronavirus screen: At this time, the client does not indicate any symptoms associated with coronavirus-19. Ebola Screen: No symptoms or risks identified at this time. Risk Assessment: Do you want to hurt yourself or someone else? Patient reports no desire to harm self or others. 09:45 Method Of Arrival: Ambulatory iw 09:45 Acuity: CHI 4 iw 09:45 Initial Sepsis Screen: Does the patient meet any 2 criteria? No. Patient's initial iw sepsis screen is negative. Does the patient have a suspected source of infection? No. Patient's initial sepsis screen is negative. Onset of symptoms was March 17, 2024. 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 - Infectious Disease History:: Denies. - Social history:: Smoking status: Patient denies any tobacco usage or history of. - Family history:: not pertinent. Screenin:59 [facility] ED Fall Risk Assessment (Adult) History of falling in the last 3 months, iw including since admission No falls in past 3 months (0 pts) Confusion or Disorientation No (0 pts) Intoxicated or Sedated No (0 pts) Impaired Gait No (0 pts) Mobility Assist Device Used No (0 pt) Altered Elimination No (0 pt) Score/Fall Risk Level 0 - 2 = Low Risk Oriented to surroundings. Abuse screen: Denies threats or abuse. Denies injuries from another. Nutritional screening: No deficits noted. Tuberculosis screening: No symptoms or risk factors identified. Assessment: 09:58 General: Appears in no apparent distress. Behavior is calm, cooperative. Pain: iw Complains of pain in left eye. Neuro: Level of Consciousness is awake, alert, obeys commands, Oriented to person, place, time, situation, Moves all extremities. Full function. Cardiovascular: Patient's skin is warm and dry. EENT: Eyes swelling and excoriation noted to left orbital area . Vital Signs: 09:47 BP 138 / 105; Pulse 51; Resp 16; Temp 97.3; Pulse Ox 100% on R/A; Weight 106.59 kg; iw Height 5 ft. 3 in. ; 09:47 Body Mass Index 41.63 (106.59 kg, 160.02 cm) iw ED Course: 09:34 Patient arrived in ED. mr 09:36 Steve Vanegas MD is Attending Physician. rt 09:46 Triage completed. iw 09:48 Arm band placed on. iw 09:58 Krissy Ellsworth RN is Primary Nurse. iw 09:59 No provider procedures requiring assistance completed. Patient did not have IV access iw during this emergency room visit. 10:00 Patient has correct armband on for positive identification. Provided Education on: . iw Administered Medications: No medications were administered Medication: 09:59 VIS not applicable for this client. iw Outcome: 09:57 Discharge ordered by . rt 10:06 Discharged to home ambulatory, iw 10:06 Condition: good 10:06 Discharge instructions given to patient, Instructed on discharge instructions, follow up and referral plans. medication usage, Demonstrated understanding of instructions, follow-up care, medications, Prescriptions given X 2, 10:07 Patient left the ED. iw Signatures: Ida King, Reg Reg mr Krissy Ellsworth, RN RN iw Steve Vanegas MD MD rt Corrections: (The following items were deleted from the chart) 09:48 09:47 BP 138 / 105; Pulse 51bpm; Resp 16bpm; Pulse Ox 100% RA; Temp 97.3F; iw iw
[2024-03-17 10:12] VITALS: BP 138/105; TEMP 97.3; O2SAT 100
== END 2024-03-17 10:07 | disposition home or self-care (01) ==
LOC: ER 09:33
DX: L03.213 Periorbital cellulitis (principal)
CPT/HCPCS: 99283